=== PATIENT | male | born 1955 | race Caucasian/White ===

== ENCOUNTER 2017-01-01 15:42 | Inpatient (IN) | payer MEDICARE, OTHER ==
--- NOTE | 2017-01-01 16:04 | ED ---
General Adult HPI - General Source: RN notes reviewed, old records reviewed <Christina Johns - Last Filed: 01/01/17 18:49> <Juni Elizabeth - Last Filed: 01/01/17 19:42> - General Stated complaint: infection Time Seen by Provider: 01/01/17 15:52 - History of Present Illness Initial comments: 60-year-old male with chronic [place] medical conditions of multiple sclerosis, suprapubic catheter, bowel incontinence and GERD presents the Department chief complaint of concern for prostate abscess and osteomyelitis. Patient has an severe sacral wound that is currently being treated by Dr. Flowers. Patient is currently living in [facility]. Patient was sent to the emergency department to be admitted for concern of worsening wound and increased drainage. Per transfer form indicates Dr. Bowling wants this patient to be admitted. Thorough review of the papers that the patient had with this transfer showed that he had an MRI which revealed osteomyelitis of the issue and extending the posterior ramus under the acetabulum. Is not amenable to surgical resection. Also there is a significant left shoulder to decubitus ulcer with initial tuberosity osteomyelitis. The MRI was performed on 12/25/2016. (Christina Johns) - Related Data Home Medications Medication Instructions Recorded Confirmed DULoxetine HCL [Cymbalta] 60 mg PO DAILY 08/30/14 01/01/17 Gabapentin [Neurontin] 200 mg PO TID@0500,1300,2100 08/30/14 01/01/17 Nystatin 100,000Unit/gm Cream 1 applic TOPICAL BID 08/30/14 01/01/17 [Mycostatin Cream] DULoxetine HCL [Cymbalta] 30 mg PO DAILY 08/31/14 01/01/17 Polyethylene Glycol 3350 [Miralax] 17 gm PO DAILY 08/31/14 01/01/17 Bisacodyl [Dulcolax] 10 mg RECTAL DAILY PRN 09/26/15 01/01/17 Memantine [Namenda] 10 mg PO BID 09/26/15 01/01/17 Acetaminophen [Tylenol Arthritis] 650 mg PO Q6HR PRN 12/12/15 01/01/17 Folic Acid/Multivit-Min/Lutein 1 tab PO HS 12/12/15 01/01/17 [Therapeutic-M Tablet] Triamcinolone 0.1% Ointment 1 applic TOPICAL TID PRN 12/19/15 01/01/17 [Kenalog 0.1% Ointment] Ranitidine HCl [Zantac] 75 mg PO HS 01/31/16 01/01/17 Amino Acids/Protein Hydrolys 30 ml PO DAILY 01/01/17 01/01/17 [Pro-Stat Supplement] Lisinopril [Zestril] 2.5 mg PO DAILY 01/01/17 01/01/17 Menthol/Zinc Oxide [Calmoseptine 1 applic TOPICAL TID PRN 01/01/17 01/01/17 Ointment] Sennosides/Docusate Sodium 1 tab PO BID 01/01/17 01/01/17 [Precious-Colace Tablet] Previous Rx's Medication Instructions Recorded HYDROcodone/APAP 5-325MG [Stem 1 tab PO Q4HR PRN #30 tab 02/07/16 5-325] Allergies Allergy/AdvReac Type Severity Reaction Status Date / Time adhesive Allergy Unknown Verified 01/01/17 18:03 chocolate flavor Allergy Unknown Verified 01/01/17 18:03 egg Allergy Unknown Verified 01/01/17 16:17 heparin (porcine) Allergy Unknown Verified 01/01/17 18:03 [heparin,porcine] Sulfa (Sulfonamide Allergy Unknown Verified 01/01/17 18:03 Antibiotics) Review of Systems ROS Other: All systems not noted in ROS Statement are negative. <Christina Johns - Last Filed: 01/01/17 18:49> ROS Other: All systems not noted in ROS Statement are negative. <Juni Elizabeth - Last Filed: 01/01/17 19:42> ROS Statement: Those systems with pertinent positive or pertinent negative responses have been documented in the HPI. Past Medical History Past Medical History: Dementia, Diabetes Mellitus, Eye Disorder, GERD/Reflux, Mitral Valve Prolapse (MVP), Musculoskeletal Disorder, Neurologic Disorder, Renal Disease, Vascular Disorder Additional Past Medical History / Comment(s): multiple sclerosis, atony of bladder-neurogenic bladder with suprapubic catheter, UTIs with sepsis, bowel incontinence, decubs in past, cellulitis bilateral lower legs in past, bilateral leg weakness, nephrolithiasis, bladder stones, back pain, DDD, muscle spasms, PVD, macular degeneration bilateral eyes with poor vision, MVP, dementia ,Pt uses Pradeep lift unable to stand & pivot. Wound center pt-goes there on Wednesdays. History of Any Multi-Drug Resistant Organisms: ESBL, MRSA, Other MDRO Date of last positivie culture/infection: 06/19/15-ESBL-E.coli; 12/24/16-MRSA & MDRO Pseudomonas MDRO Source:: Urine-ESBL; Coccyx/Bone MRSA & MDRO Past Surgical History: No Surgical Hx Reported Additional Past Surgical History / Comment(s): supra pubic catheter placement and removal of bladder stones, I&D scrotal abcess, penile implant and removal with necrotic tissue removal, PICC line insertion 10/01/15 and since removed, debridement lt trochanter Past Anesthesia/Blood Transfusion Reactions: No Reported Reaction Additional Past Anesthesia/Blood Transfusion Reaction / Comment(s): Pt states he has never received blood. Past Psychological History: Depression Additional Psychological History / Comment(s): Pt resides at [facility] Smoking Status: Former smoker Past Alcohol Use History: None Reported Additional Past Alcohol Use History / Comment(s): Pt states he started smoking in and quit in 2004 Past Drug Use History: None Reported - Past Family History Mother Family Medical History: No Reported History Additional Family Medical History / Comment(s): Pt believes his mother was healthy. She has . Father Family Medical History: Diabetes Mellitus Additional Family Medical History / Comment(s): Pt states he believes his dad in his 60's. <NatChristina - Last Filed: 01/01/17 18:49> General Exam General appearance: alert, in no apparent distress Head exam: Present: atraumatic, normocephalic, normal inspection Eye exam: Present: normal appearance, PERRL, EOMI. Absent: scleral icterus, conjunctival injection, periorbital swelling ENT exam: Present: normal exam, mucous membranes moist Neck exam: Present: normal inspection. Absent: tenderness, meningismus, lymphadenopathy Respiratory exam: Present: normal lung sounds bilaterally. Absent: respiratory distress, wheezes, rales, rhonchi, stridor Cardiovascular Exam: Present: regular rate, normal rhythm, normal heart sounds. Absent: systolic murmur, diastolic murmur, rubs, gallop, clicks GI/Abdominal exam: Present: soft, normal bowel sounds, other (suprapubic catheter). Absent: distended, tenderness, guarding, rebound, rigid Rectal exam: Present: other (significant decubitis ulcer with packing. Patient has erythema and minor drainage from the site. ). Absent: normal inspection Extremities exam: Present: normal inspection, full ROM, normal capillary refill. Absent: tenderness, pedal edema, joint swelling, calf tenderness Back exam: Present: normal inspection Neurological exam: Present: alert, oriented X3, CN II-XII intact Psychiatric exam: Present: normal affect, normal mood Skin exam: Present: warm, dry, intact, normal color. Absent: rash <Christina Johns - Last Filed: 01/01/17 18:49> <Juni Elizabeth - Last Filed: 01/01/17 19:42> - General Exam Comments Initial Comments: 61-year-old male. No acute distress. (Christina Johns) Medical Decision Making - Lab Data Result diagrams: 01/01/17 16:30 01/01/17 16:30 - Radiology Data Radiology results: report reviewed <Christina Johns - Last Filed: 01/01/17 18:49> - Lab Data Result diagrams: 01/01/17 16:30 01/01/17 16:30 <Juni Elizabeth - Last Filed: 01/01/17 19:42> - Medical Decision Making 60-year-old male with chronic [place] medical conditions of multiple sclerosis, suprapubic catheter, bowel incontinence and GERD presents the Department chief complaint of concern for prostate abscess and osteomyelitis. Patient has an severe sacral wound that is currently being treated by Dr. Flowers. Patient is currently living in [facility]. Patient was sent to the emergency department to be admitted for concern of worsening wound and increased drainage. Per transfer form indicates Dr. Bowling wants this patient to be admitted. Thorough review of the papers that the patient had with this transfer showed that he had an MRI which revealed osteomyelitis of the issue and extending the posterior ramus under the acetabulum. Is not amenable to surgical resection. Also there is a significant left shoulder to decubitus ulcer with initial tuberosity osteomyelitis. The MRI was performed on 12/25/2016. Patient's lab work was reviewed. Urinalysis is positive for UTI. Patient does have an extensive decubitus ulcer. CT abdomen and pelvis, No mention of prostate abscess osteomyelitis. Patient will be started on Levaquin for UTI antibiotic coverage. (Christina Johns) Case discussed Dr. Pires reevaluate the patient for the irregularity to the posterior aspect of the prostate as well as the probably chronic obstructive left ureteral stone. Dr. Elizabeth (Juni Elizabeth) - Lab Data Lab Results 01/01/17 01/01/17 01/01/17 Range/Units 16:30 16:30 16:30 WBC 8.1 (3.8-10.6) k/uL RBC 5.51 (4.30-5.90) m/uL Hgb 14.4 (13.0-17.5) gm/dL Hct 45.5 (39.0-53.0) % MCV 82.6 (80.0-100.0) fL MCH 26.1 (25.0-35.0) pg MCHC 31.6 (31.0-37.0) g/dL RDW 15.2 (11.5-15.5) % Plt Count 491 H (150-450) k/uL Neutrophils % 63 % Lymphocytes % 20 % Monocytes % 8 % Eosinophils % 5 % Basophils % 1 % Neutrophils # 5.1 (1.3-7.7) k/uL Lymphocytes # 1.6 (1.0-4.8) k/uL Monocytes # 0.7 (0-1.0) k/uL Eosinophils # 0.4 (0-0.7) k/uL Basophils # 0.1 (0-0.2) k/uL Hypochromasia Moderate PT (9.0-12.0) sec INR (<1.2) APTT (22.0-30.0) sec Sodium 141 (137-145) mmol/L Potassium 4.5 (3.5-5.1) mmol/L Chloride 107 (98-107) mmol/L Carbon Dioxide 25 (22-30) mmol/L Anion Gap 9 mmol/L BUN 15 (9-20) mg/dL Creatinine 1.02 (0.66-1.25) mg/dL Est GFR (MDRD) Af Amer >60 (>60 ml/min/1.73 sqM) Est GFR (MDRD) Non-Af >60 (>60 ml/min/1.73 sqM) Glucose 92 (74-99) mg/dL Plasma Lactic Acid Rey 1.2 (0.7-2.0) mmol/L Calcium 9.1 (8.4-10.2) mg/dL Total Bilirubin 0.3 (0.2-1.3) mg/dL AST 23 (17-59) U/L ALT 31 (21-72) U/L Alkaline Phosphatase 78 (38-126) U/L Total Protein 8.0 (6.3-8.2) g/dL Albumin 3.5 (3.5-5.0) g/dL Urine Color Urine Appearance (Clear) Urine pH (5.0-8.0) Ur Specific [place] (1.001-1.035) Urine Protein (Negative) Urine Glucose (UA) (Negative) Urine Ketones (Negative) Urine Blood (Negative) Urine Nitrite (Negative) Urine Bilirubin (Negative) Urine Urobilinogen (<2.0) mg/dL Ur Leukocyte Esterase (Negative) Urine WBC (0-5) /hpf Urine Bacteria (None) /hpf Urine Mucus (None) /hpf 01/01/17 01/01/17 Range/Units 16:30 16:30 WBC (3.8-10.6) k/uL RBC (4.30-5.90) m/uL Hgb (13.0-17.5) gm/dL Hct (39.0-53.0) % MCV (80.0-100.0) fL MCH (25.0-35.0) pg MCHC (31.0-37.0) g/dL RDW (11.5-15.5) % Plt Count (150-450) k/uL Neutrophils % % Lymphocytes % % Monocytes % % Eosinophils % % Basophils % % Neutrophils # (1.3-7.7) k/uL Lymphocytes # (1.0-4.8) k/uL Monocytes # (0-1.0) k/uL Eosinophils # (0-0.7) k/uL Basophils # (0-0.2) k/uL Hypochromasia PT 10.3 (9.0-12.0) sec INR 1.0 (<1.2) APTT 28.5 (22.0-30.0) sec Sodium (137-145) mmol/L Potassium (3.5-5.1) mmol/L Chloride (98-107) mmol/L Carbon Dioxide (22-30) mmol/L Anion Gap mmol/L BUN (9-20) mg/dL Creatinine (0.66-1.25) mg/dL Est GFR (MDRD) Af Amer (>60 ml/min/1.73 sqM) Est GFR (MDRD) Non-Af (>60 ml/min/1.73 sqM) Glucose (74-99) mg/dL Plasma Lactic Acid Rey (0.7-2.0) mmol/L Calcium (8.4-10.2) mg/dL Total Bilirubin (0.2-1.3) mg/dL AST (17-59) U/L ALT (21-72) U/L Alkaline Phosphatase (38-126) U/L Total Protein (6.3-8.2) g/dL Albumin (3.5-5.0) g/dL Urine Color Light Yellow Urine Appearance Cloudy (Clear) Urine pH 6.5 (5.0-8.0) Ur Specific [place] 1.011 (1.001-1.035) Urine Protein Negative (Negative) Urine Glucose (UA) Negative (Negative) Urine Ketones Negative (Negative) Urine Blood Negative (Negative) Urine Nitrite Positive (Negative) Urine Bilirubin Negative (Negative) Urine Urobilinogen <2.0 (<2.0) mg/dL Ur Leukocyte Esterase Large H (Negative) Urine WBC 74 H (0-5) /hpf Urine Bacteria Moderate H (None) /hpf Urine Mucus Rare H (None) /hpf - Radiology Data CT abdomen shows patchy scarring or atelectasis in the posterior lung base without change compared to exam. Left renal calcifications severe atrophy of the left kidney that has progressed compared old CAT scan. Large obstructing stone at the left ureteral pelvic junction measuring 2 cm. There is common story hypertrophy of the right kidney. No evidence of right-sided renal obstruction. Small hepatic cyst. No evidence of abscess. (Christina Johns) Disposition Time of Disposition: 18:57 <Christina Johns - Last Filed: 01/01/17 18:49> <Juni Elizabeth - Last Filed: 01/01/17 19:42> Clinical Impression: Decubital ulcer, UTI (urinary tract infection), Multiple sclerosis, Osteomyelitis, pelvis Disposition: ADMITTED IP TO THIS HOSP Condition: Stable Referrals: Mo Bowling DO [Primary Care Provider] - 1-2 days
[2017-01-01] MEDS ORDERED: RX INFO: IV CONTRAST WAS GIVEN 1 EACH MISC MISCELLANE PRN (16:20)
[2017-01-01] MEDS: SODIUM CHLORIDE 0.9% 500 ML IV SCH (16:45)
[2017-01-01 16:59] LABS: Basophils # (A) 0.1 k/uL (0-0.2); Basophils % (A) 1 %; CH 25.4; CHCM 30.8; Eosinophils # (A) 0.4 k/uL (0-0.7); Eosinophils % (A) 5 %; HCT 45.5 % (39.0-53.0); HDW 2.76; HGB 14.4 gm/dL (13.0-17.5); Hypochromasia Moderate; Luc # (Auto) 0.26; Luc % (Auto) 3; Lymphocytes # (A) 1.6 k/uL (1.0-4.8); Lymphocytes % (A) 20 %; MCH 26.1 pg (25.0-35.0); MCHC 31.6 g/dL (31.0-37.0); MCV 82.6 fL (80.0-100.0); Mean Platelet Volume 6.2; Monocytes # (A) 0.7 k/uL (0-1.0); Monocytes % (A) 8 %; Neutrophils # (A) 5.1 k/uL (1.3-7.7); Neutrophils % (A) 63 %; RBC 5.51 m/uL (4.30-5.90); RDW 15.2 % (11.5-15.5); WBC 8.1 k/uL (3.8-10.6); WBC (Perox) 7.52
[2017-01-01] MEDS ORDERED: AZITHROMYCIN 500 MG TAB PO STA (17:03)
[2017-01-01 17:12] LABS: ALT 31 U/L (21-72); AST 23 U/L (17-59); Alkaline Phosphatase 78 U/L (38-126); Anion Gap 9 mmol/L; Blood Urea Nitrogen 15 mg/dL (9-20); Calcium 9.1 mg/dL (8.4-10.2); Carbon Dioxide 25 mmol/L (22-30); Chloride 107 mmol/L (98-107); Glucose 92 mg/dL (74-99); Non-African American GFR(MDRD) >60 (>60 ml/min/1.73 sqM); Partial Thromboplastin Time 28.5 sec (22.0-30.0); Potassium 4.5 mmol/L (3.5-5.1); Prothrombin Time 10.3 sec (9.0-12.0); Sodium 141 mmol/L (137-145); Total Bilirubin 0.3 mg/dL (0.2-1.3)
[2017-01-01 17:17] LABS: Appearance,Urine Cloudy (Clear); Bacteria,Urine Moderate /hpf; Bilirubin,Urine Negative (Negative); Glucose,Urine (UA) Negative (Negative); Ketones,Urine Negative (Negative); Leukocyte Esterase,Urine Large (Negative); Mucus,Urine Rare /hpf; Nitrite,Urine Positive (Negative); PH, Urine 6.5 (5.0-8.0); Particle Count 24194; Protein,Urine Negative (Negative); Specific Gravity,Urine 1.011 (1.001-1.035); UA Billing (MACRO vs. MICRO) MICRO; Urobilinogen,Urine <2.0 mg/dL (<2.0); WBC,Urine 74 /hpf (0-5)
--- NOTE | 2017-01-01 18:09 | CT ---
EXAMINATION TYPE: CT abdomen pelvis w con DATE OF EXAM: 01/01/2017 COMPARISON: 09/26/2015 HISTORY: Infection abdominal pain CT DLP: 2289 mGycm Automated exposure control for dose reduction was used. TECHNIQUE: Helical acquisition of images was performed from the lung bases through the pelvis. CONTRAST: Performed without Oral Contrast and with IV Contrast, patient injected with 100 mL of Omnipaque 300. FINDINGS: There is patchy linear density at the lung bases consistent with scarring and subsegmental atelectasi s. There is no pleural effusion. Liver shows tiny 1 cm cyst in the left lobe. Spleen appears normal. There is no pancreatic mass. There is no adrenal mass. Right kidney shows compensatory hypertrophy. There is a small left kidney w ith calcification and significant cortical thinning. There is a 2 cm calculus at the left ureteropelv ic junction. There is no retroperitoneal adenopathy. There is retained fecal material in the colon. T here is a suprapubic catheter noted. There is a 2.5 x 2 cm stone in the urinary bladder. There is no ascites. There is no sign of a bowel obstruction. I see no bony destructive process. Appendix is not seen. There is no sign of appendicitis. IMPRESSION: There is patchy scarring and atelectasis at the posterior lung bases without change compared to old e xam. Left renal calcifications and severe atrophy in the left kidney that has progressed compared to old C T scan. Large obstructing stone at the left ureteropelvic junction. There is compensatory hypertrophy of the right kidney. No evidence of right-sided renal obstruction. Small hepatic cysts. No evidence of an abscess. Large bladder stone. Constipation.
[2017-01-01] MEDS ORDERED: LEVOFLOXACIN 750MG-D5W PMX 750 MG in DEXTROSE/WATER 1 150ML.BAG IVPB STA (18:53)
[2017-01-01] MEDS ORDERED: ONDANSETRON 4 MG/2 ML VIAL IVP PRN (19:01)
[2017-01-01] MEDS ORDERED: ACETAMINOPHEN TAB 325 MG TAB PO PRN (19:01)
[2017-01-01] MEDS ORDERED: traMADol 50 MG TAB PO PRN (19:01)
[2017-01-01] MEDS ORDERED: NALOXONE 0.4 MG/ML 1 ML VIAL IV PRN (19:01)
[2017-01-01] MEDS ORDERED: IBUPROFEN 400 MG TAB PO PRN (19:01)
[2017-01-01] MEDS ORDERED: MENTHOL-ZINC OXIDE OINT 113 GM TUBE TOPICAL PRN (19:04)
[2017-01-01] MEDS ORDERED: TRIAMCINOLONE ACET 0.1% OINTMENT 15 GM TUBE TOPICAL PRN (19:04)
[2017-01-01] MEDS: SODIUM CHLORIDE 0.9% 1,000 ML IV SCH (19:36)
[2017-01-01 21:12] VITALS: BMI 24.6
[2017-01-01] MEDS: SENNOSIDES-DOCUSATE SODIUM 1 EACH TAB PO SCH (21:40)
[2017-01-01] MEDS: NYSTATIN 100,000UNIT/GM CREAM 30 GM TUBE TOPICAL SCH (21:40)
[2017-01-01] MEDS: GABAPENTIN 100 MG CAP PO SCH (21:41)
[2017-01-01] MEDS: MEMANTINE 10 MG TAB PO SCH (21:41)
[2017-01-02] MEDS: SODIUM CHLORIDE 0.9% 1,000 ML IV SCH ×2 (03:24→09:41)
[2017-01-02] MEDS: GABAPENTIN 100 MG CAP PO SCH ×2 (06:08→14:25)
[2017-01-02 07:17] VITALS: TEMP 97
[2017-01-02] MEDS ORDERED: NON-FORMULARY DRUG (Amino Acids/Protein Hydrolys [Pro-Stat Supplement] 30 ML) PO SCH (09:00)
[2017-01-02] MEDS ORDERED: DULoxetine HCL 60 MG CAPSULE.DR PO SCH (09:00)
[2017-01-02] MEDS ORDERED: LISINOPRIL 2.5 MG TAB PO SCH (09:00)
[2017-01-02] MEDS ORDERED: DULoxetine HCL 30 MG CAPSULE.DR PO SCH (09:00)
[2017-01-02] MEDS ORDERED: POLYETHYLENE GLYCOL 3350 17 GM POWD.PACK PO SCH (09:00)
[2017-01-02] MEDS ORDERED: ESOMEPRAZOLE 20 MG in SODIUM CHLORIDE 0.9% 50 ML IVPB SCH (09:00)
[2017-01-02] MEDS: MEMANTINE 10 MG TAB PO SCH (09:41)
[2017-01-02] MEDS: SENNOSIDES-DOCUSATE SODIUM 1 EACH TAB PO SCH (09:42)
[2017-01-02] MEDS: NYSTATIN 100,000UNIT/GM CREAM 30 GM TUBE TOPICAL SCH (09:43)
--- NOTE | 2017-01-02 10:27 | P.GSCN ---
History of Present Illness Consult date: 01/02/17 Reason for Consult: possible prostate abscess, bladder calculus and renal calculus History of present illness: the patient is a 60-year-old male with a history of multiple sclerosis was admitted for evaluation of osteomyelitis of the left ischium and posterior left pubic ramus and a possible prostatic abscess. These findings were noted on an MR of the pelvis on 12/25/2016. The patient has a complicated history related to multiple sclerosis and a neurogenic bladder. He has a chronic suprapubic catheter which is changed monthly and was last changed on 12/28. 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 He had a computed tomography scan of the abdomen and pelvis in 09/2015 that showed a 2 cm left renal calculus with moderately severe left hydronephrosis and atrophy of the left kidney. A 2.5 cm bladder calculus was also noted at that time. He was evaluated by Dr. Christensen at that time and he discussed elective removal of the bladder calculus and probable left nephrectomy but this was never actually set up. Computed tomography scan of the abdomen and pelvis on 01/01 continued to show the bladder and left renal calculus and they are unchanged in appearance. There also appeared to be a punctate nonobstructive right renal calculus. There appeared to be compensatory hypertrophy of the right kidney. There was no abnormality noted in the region of the prostate on this study.The patient has had a chronic ulcer over the left ischium and has been followed in the wound center by Dr. Flowers. Review of Systems - Constitutional Denies chills, Denies fever - Gastrointestinal Denies abdominal pain - Genitourinary Denies flank pain, Denies hematuria Past Medical History Past Medical History: Dementia, Diabetes Mellitus, Eye Disorder, GERD/Reflux, Mitral Valve Prolapse (MVP), Musculoskeletal Disorder, Neurologic Disorder, Renal Disease, Vascular Disorder Additional Past Medical History / Comment(s): multiple sclerosis, atony of bladder-neurogenic bladder with suprapubic catheter, UTIs with sepsis, bowel incontinence, decubs in past, cellulitis bilateral lower legs in past, bilateral leg weakness, nephrolithiasis, bladder stones, back pain, DDD, muscle spasms, PVD, macular degeneration bilateral eyes with poor vision, MVP, dementia ,Pt uses Pradeep lift unable to stand & pivot. Wound center pt-goes there on Wednesdays. History of Any Multi-Drug Resistant Organisms: ESBL, MRSA, Other MDRO Year Discovered:: 06/19/15-ESBL-E.coli; 12/24/16-MRSA & MDRO Pseudomonas MDRO Source:: Urine-ESBL; Coccyx/Bone MRSA & MDRO Past Surgical History: No Surgical Hx Reported Additional Past Surgical History / Comment(s): supra pubic catheter placement and removal of bladder stones, I&D scrotal abcess, penile implant and removal with necrotic tissue removal, PICC line insertion 10/01/15 and since removed, debridement lt trochanter, placementy and subsequent removal of semimaleable penile prosthesis Past Anesthesia/Blood Transfusion Reactions: No Reported Reaction Additional Past Anesthesia/Blood Transfusion Reaction / Comm: Pt states he has never received blood. Past Psychological History: Depression Additional Psychological History / Comment(s): Pt resides at [facility] Smoking Status: Former smoker Past Alcohol Use History: None Reported Additional Past Alcohol Use History / Comment(s): Pt states he started smoking in and quit in 2004 Past Drug Use History: None Reported - Past Family History Mother Family Medical History: No Reported History Additional Family Medical History / Comment(s): Pt believes his mother was healthy. She has . Father Family Medical History: Diabetes Mellitus Additional Family Medical History / Comment(s): Pt states he believes his dad in his 60's. Medications and Allergies Home Medications Medication Instructions Recorded Confirmed Type DULoxetine HCL [Cymbalta] 60 mg PO DAILY 08/30/14 01/01/17 History Gabapentin [Neurontin] 200 mg PO TID@0500,1300,2100 08/30/14 01/01/17 History Nystatin 100,000Unit/gm Cream 1 applic TOPICAL BID 08/30/14 01/01/17 History [Mycostatin Cream] DULoxetine HCL [Cymbalta] 30 mg PO DAILY 08/31/14 01/01/17 History Polyethylene Glycol 3350 [Miralax] 17 gm PO DAILY 08/31/14 01/01/17 History Bisacodyl [Dulcolax] 10 mg RECTAL DAILY PRN 09/26/15 01/01/17 History Memantine [Namenda] 10 mg PO BID 09/26/15 01/01/17 History Acetaminophen [Tylenol Arthritis] 650 mg PO Q6HR PRN 12/12/15 01/01/17 History Folic Acid/Multivit-Min/Lutein 1 tab PO HS 12/12/15 01/01/17 History [Therapeutic-M Tablet] Triamcinolone 0.1% Ointment 1 applic TOPICAL TID PRN 12/19/15 01/01/17 History [Kenalog 0.1% Ointment] Ranitidine HCl [Zantac] 75 mg PO HS 01/31/16 01/01/17 History Amino Acids/Protein Hydrolys 30 ml PO DAILY 01/01/17 01/01/17 History [Pro-Stat Supplement] Lisinopril [Zestril] 2.5 mg PO DAILY 01/01/17 01/01/17 History Menthol/Zinc Oxide [Calmoseptine 1 applic TOPICAL TID PRN 01/01/17 01/01/17 History Ointment] Sennosides/Docusate Sodium 1 tab PO BID 01/01/17 01/01/17 History [Precious-Colace Tablet] Allergies Allergy/AdvReac Type Severity Reaction Status Date / Time adhesive Allergy Unknown Verified 01/01/17 18:03 chocolate flavor Allergy Unknown Verified 01/01/17 18:03 egg Allergy Unknown Verified 01/01/17 16:17 heparin (porcine) Allergy Unknown Verified 01/01/17 18:03 [heparin,porcine] Sulfa (Sulfonamide Allergy Unknown Verified 01/01/17 18:03 Antibiotics) Milk Containing Products AdvReac Nausea & Verified 01/02/17 07:57 [Dairy] Vomiting & Diarrhea Surgical - Exam Vital Signs Temp Pulse Resp BP Pulse Ox 98.2 F 67 18 120/69 96 01/01/17 16:19 01/01/17 16:19 01/01/17 16:19 01/01/17 16:19 01/01/17 16:19 - General well developed, no distress, no pain - Abdomen Abdomen: soft (obese, suprapubic catheter is in place. A small amount of purulent material is present around the catheter at the suprapubic entrance site.) - Genitourinary normal penis with no external lesions, testicles present, testicles non-tender - Rectum Rectum: no tenderness, other (prostate is 2+ enlarged, smooth, nontender and nonfluctuant.) - Musculoskeletal other (there is an open ulcer over the left issue him which is packed with gauze. There is only minimal purulent material draining from this.) - Psychiatric oriented to time, oriented to place, speech is normal Results - Labs 01/01/17 16:30 01/01/17 16:30 Abnormal Lab Results - Last 24 Hours (Table) 01/01/17 01/01/17 Range/Units 16:30 16:30 Plt Count 491 H (150-450) k/uL Ur Leukocyte Esterase Large H (Negative) Urine WBC 74 H (0-5) /hpf Urine Bacteria Moderate H (None) /hpf Urine Mucus Rare H (None) /hpf Microbiology - Last 24 Hours (Table) 01/01/17 16:30 Urine Culture - Preliminary Urine,Voided Diabetes panel 01/01/17 Range/Units 16:30 Sodium 141 (137-145) mmol/L Potassium 4.5 (3.5-5.1) mmol/L Chloride 107 (98-107) mmol/L Carbon Dioxide 25 (22-30) mmol/L BUN 15 (9-20) mg/dL Creatinine 1.02 (0.66-1.25) mg/dL Glucose 92 (74-99) mg/dL Calcium 9.1 (8.4-10.2) mg/dL AST 23 (17-59) U/L ALT 31 (21-72) U/L Alkaline Phosphatase 78 (38-126) U/L Total Protein 8.0 (6.3-8.2) g/dL Albumin 3.5 (3.5-5.0) g/dL Calcium panel 01/01/17 Range/Units 16:30 Calcium 9.1 (8.4-10.2) mg/dL Albumin 3.5 (3.5-5.0) g/dL Pituitary panel 01/01/17 Range/Units 16:30 Sodium 141 (137-145) mmol/L Potassium 4.5 (3.5-5.1) mmol/L Chloride 107 (98-107) mmol/L Carbon Dioxide 25 (22-30) mmol/L BUN 15 (9-20) mg/dL Creatinine 1.02 (0.66-1.25) mg/dL Glucose 92 (74-99) mg/dL Calcium 9.1 (8.4-10.2) mg/dL Adrenal panel 01/01/17 Range/Units 16:30 Sodium 141 (137-145) mmol/L Potassium 4.5 (3.5-5.1) mmol/L Chloride 107 (98-107) mmol/L Carbon Dioxide 25 (22-30) mmol/L BUN 15 (9-20) mg/dL Creatinine 1.02 (0.66-1.25) mg/dL Glucose 92 (74-99) mg/dL Calcium 9.1 (8.4-10.2) mg/dL Total Bilirubin 0.3 (0.2-1.3) mg/dL AST 23 (17-59) U/L ALT 31 (21-72) U/L Alkaline Phosphatase 78 (38-126) U/L Total Protein 8.0 (6.3-8.2) g/dL Albumin 3.5 (3.5-5.0) g/dL Assessment and Plan (1) Bladder calculus Narrative/Plan: The patient has a 2 x 2.5 cm bladder calculus which has been present for over 1 year. This may be one of the sources for his chronic urinary tract infection. Elective removal of the calculus via cystoscopy lithotripsy could be set up in the future. Status: Acute (2) Nephrolithiasis Narrative/Plan: lLeft renal calculus- This has resulted in atrophy of the kidney. In view of the severe renal atrophy I believe that left simple nephrectomy would be the best treatment option but this could be set up electively. Status: Acute (3) UTI (urinary tract infection) Narrative/Plan: Chronic urinary tract infection-most likely related to a combination of left renal calculus and bladder calculus.The patient is currently not symptomatic from his chronic urinary tract infection and because of this antibiotics should be not be used just for this purpose. The patient has no evidence of prostatic abscess on his most recent computed tomography scan or on physical examination. Status: Acute Plan: The patient has a large left renal calculus with atrophy of the left kidney and hydronephrosis which appears to be chronic. This calculus may be another source for the patient's chronic Proteus urinary tract infection. Simple nephrectomy would be a better option than attempting to remove the left renal calculus as it is likely that the left kidney has only minimal function. This surgery is elective.
[2017-01-02] MEDS ORDERED: IV VANCOMYCIN PER PHARMACY 1 EACH MISC MISCELLANE PRN (14:32)
[2017-01-02 14:58] VITALS: BP 94/59; PULSE 85; RESP 16
[2017-01-02] MEDS ORDERED: VANCOMYCIN 1,500 MG in SODIUM CHLORIDE 0.9% 250 ML IVPB ONE (15:00)
[2017-01-02] MEDS ORDERED: PIPERACILLIN-TAZOBACTAM 3.375 GM in DEXTROSE/WATER 1 50ML.BAG IVPB SCH (16:00)
--- NOTE | 2017-01-02 16:15 | P.HPIM ---
History of Present Illness the patient is a 60-year-old male with a history of multiple sclerosis was admitted for possibility of osteomyelitis of the left ischium and posterior left pubic ramus and a possible prostatic abscess. These findings were noted on an MR of the pelvis on 12/25/2016 MR patient was a valid by Dr. Sanchez infectious disease and clinically patient does not appear to have any osteomyelitis. There may be chronic osteomyelitis without any acute infection. Patient does not have any fever no leukocytosis. An infectious diseases not recommending any IV antibiotics on any oral antibiotics at this time. He is recommending CT of the area with contrast and further workup as an outpatient depending on the CT outpatient.. Patient. The patient has a complicated history related to multiple sclerosis and a neurogenic bladder. He has a chronic suprapubic catheter which is changed monthly and was last changed on . He does have nephrolithiasis which appears to be chronic and the possibility of the prostate abscess that was described on the MRI because of which urology valid the patient and they're recommending further evaluation as an outpatient for left nephrectomy. Patient does not appear to have any acute urinary tract infection either. Patient will be discharged today in stable medical condition Review of Systems REVIEW OF SYSTEMS: CONSTITUTIONAL: No fever, no malaise, no fatigue. HEENT: No recent visual problems or hearing problems. Denied any sore throat. CARDIOVASCULAR: No chest pain, orthopnea, PND, no palpitations, no syncope. PULMONARY: No shortness of breath, no cough, no hemoptysis. GASTROINTESTINAL: No diarrhea, no nausea, no vomiting, no abdominal pain. Normoactive bowel sounds. NEUROLOGICAL: No headaches, no weakness, no numbness. HEMATOLOGICAL: Denies any bleeding or petechiae. GENITOURINARY: Denies any burning micturition, frequency, or urgency. MUSCULOSKELETAL/RHEUMATOLOGICAL: Denies any joint pain, swelling, or any muscle pain. ENDOCRINE: Denies any polyuria or polydipsia. The rest of the 14-point review of systems is negative. Past Medical History Past Medical History: Dementia, Diabetes Mellitus, Eye Disorder, GERD/Reflux, Mitral Valve Prolapse (MVP), Musculoskeletal Disorder, Neurologic Disorder, Renal Disease, Vascular Disorder Additional Past Medical History / Comment(s): multiple sclerosis, atony of bladder-neurogenic bladder with suprapubic catheter, UTIs with sepsis, bowel incontinence, decubs in past, cellulitis bilateral lower legs in past, bilateral leg weakness, nephrolithiasis, bladder stones, back pain, DDD, muscle spasms, PVD, macular degeneration bilateral eyes with poor vision, MVP, dementia ,Pt uses Pradeep lift unable to stand & pivot. Wound center pt-goes there on Wednesdays. History of Any Multi-Drug Resistant Organisms: ESBL, MRSA, Other MDRO Date of last positivie culture/infection: 06/19/15-ESBL-E.coli; 12/24/16-MRSA & MDRO Pseudomonas MDRO Source:: Urine-ESBL; Coccyx/Bone MRSA & MDRO Past Surgical History: No Surgical Hx Reported Additional Past Surgical History / Comment(s): supra pubic catheter placement and removal of bladder stones, I&D scrotal abcess, penile implant and removal with necrotic tissue removal, PICC line insertion 10/01/15 and since removed, debridement lt trochanter, placementy and subsequent removal of semimaleable penile prosthesis Past Anesthesia/Blood Transfusion Reactions: No Reported Reaction Additional Past Anesthesia/Blood Transfusion Reaction / Comment(s): Pt states he has never received blood. Past Psychological History: Depression Additional Psychological History / Comment(s): Pt resides at [facility] Smoking Status: Former smoker Past Alcohol Use History: None Reported Additional Past Alcohol Use History / Comment(s): Pt states he started smoking in and quit in 2004 Past Drug Use History: None Reported - Past Family History Mother Family Medical History: No Reported History Additional Family Medical History / Comment(s): Pt believes his mother was healthy. She has . Father Family Medical History: Diabetes Mellitus Additional Family Medical History / Comment(s): Pt states he believes his dad in his 60's. Medications and Allergies Home Medications Medication Instructions Recorded Confirmed Type DULoxetine HCL [Cymbalta] 60 mg PO DAILY 08/30/14 01/01/17 History Gabapentin [Neurontin] 200 mg PO TID@0500,1300,2100 08/30/14 01/01/17 History Nystatin 100,000Unit/gm Cream 1 applic TOPICAL BID 08/30/14 01/01/17 History [Mycostatin Cream] DULoxetine HCL [Cymbalta] 30 mg PO DAILY 08/31/14 01/01/17 History Polyethylene Glycol 3350 [Miralax] 17 gm PO DAILY 08/31/14 01/01/17 History Bisacodyl [Dulcolax] 10 mg RECTAL DAILY PRN 09/26/15 01/01/17 History Memantine [Namenda] 10 mg PO BID 09/26/15 01/01/17 History Acetaminophen [Tylenol Arthritis] 650 mg PO Q6HR PRN 12/12/15 01/01/17 History Folic Acid/Multivit-Min/Lutein 1 tab PO HS 12/12/15 01/01/17 History [Therapeutic-M Tablet] Triamcinolone 0.1% Ointment 1 applic TOPICAL TID PRN 12/19/15 01/01/17 History [Kenalog 0.1% Ointment] Ranitidine HCl [Zantac] 75 mg PO HS 01/31/16 01/01/17 History Amino Acids/Protein Hydrolys 30 ml PO DAILY 01/01/17 01/01/17 History [Pro-Stat Supplement] Lisinopril [Zestril] 2.5 mg PO DAILY 01/01/17 01/01/17 History Menthol/Zinc Oxide [Calmoseptine 1 applic TOPICAL TID PRN 01/01/17 01/01/17 History Ointment] Sennosides/Docusate Sodium 1 tab PO BID 01/01/17 01/01/17 History [Precious-Colace Tablet] Allergies Allergy/AdvReac Type Severity Reaction Status Date / Time adhesive Allergy Unknown Verified 01/01/17 18:03 chocolate flavor Allergy Unknown Verified 01/01/17 18:03 egg Allergy Unknown Verified 01/01/17 16:17 heparin (porcine) Allergy Unknown Verified 01/01/17 18:03 [heparin,porcine] Sulfa (Sulfonamide Allergy Unknown Verified 01/01/17 18:03 Antibiotics) Milk Containing Products AdvReac Nausea & Verified 01/02/17 07:57 [Dairy] Vomiting & Diarrhea Physical Exam Vitals: Vital Signs Temp Pulse Pulse Resp BP BP Pulse Ox 01/02/17 14:58 97.0 F L 85 16 94/59 98 01/02/17 07:00 97.0 F L 66 18 105/56 93 L 01/01/17 22:51 97.2 F L 64 14 131/62 99 01/01/17 19:39 98.3 F 68 18 137/60 98 01/01/17 18:01 98.6 F 61 18 110/62 99 01/01/17 16:45 62 18 122/63 99 01/01/17 16:19 98.2 F 67 18 120/69 96 Intake and Output 01/02/17 01/02/17 01/02/17 06:59 14:59 22:59 Output Total 1050 1700 Balance -1050 -1700 Output: Urine 1050 1700 Other: Voiding Method Indwelling Catheter Indwelling Catheter Weight 89.358 kg Patient Weight 01/03/17 06:59 Weight 89.358 kg PHYSICAL EXAMINATION: GENERAL: The patient is alert and oriented x3, not in any acute distress. Well developed, well nourished. HEENT: Pupils are round and equally reacting to light. EOMI. No scleral icterus. No conjunctival pallor. Normocephalic, atraumatic. No pharyngeal erythema. No thyromegaly. CARDIOVASCULAR: S1 and S2 present. No murmurs, rubs, or gallops. PULMONARY: Chest is clear to auscultation, no wheezing or crackles. ABDOMEN: Soft, nontender, nondistended, normoactive bowel sounds. No palpable organomegaly. MUSCULOSKELETAL: No joint swelling or deformity. EXTREMITIES: No cyanosis, clubbing, or pedal edema. NEUROLOGICAL: Gross neurological examination did not reveal any focal deficits. SKIN: Has a stage IV decubitus ulcer which doesn't appear to be infected. Results CBC & Chem 7: 01/01/17 16:30 01/01/17 16:30 Labs: Abnormal Lab Results - Last 24 Hours (Table) 01/01/17 01/01/17 Range/Units 16:30 16:30 Plt Count 491 H (150-450) k/uL Ur Leukocyte Esterase Large H (Negative) Urine WBC 74 H (0-5) /hpf Urine Bacteria Moderate H (None) /hpf Urine Mucus Rare H (None) /hpf Microbiology - Last 24 Hours (Table) 01/01/17 16:30 Urine Culture - Preliminary Urine,Voided Thrombosis Risk Factor Assmnt - Choose All That Apply Any of the Below Risk Factors Present?: No Other Risk Factors: Yes Each Risk Factor Represents 2 Points: Age 61-74 years Other congenital or acquired thrombophilia - If yes, enter type in comment: No Thrombosis Risk Factor Assessment Total Risk Factor Score: 2 Thrombosis Risk Factor Assessment Level: Low Risk Assessment and Plan Plan: #1 osteomyelitis without any acute infection appeared to have chronic osteomyelitis as per the MRI, no need for antibiotics at this point of time repeat CAT scan with contrast as an outpatient , further evaluation depending on the CAT scan results #2 nephrolithiasis chronic please refer to urology documentation for further details. #3 multiple sclerosis with chronic weakness in bilateral lower limbs. Mostly bedbound. #4 type 2 diabetes mellitus #5 gastroesophageal reflux disease Patient will be discharged back to the subacute rehabilitation will not require any antibiotics patient was evaluated by infectious disease and urology no further changes in medications are being made today.
--- NOTE | 2017-01-02 16:16 | P.DS ---
Providers Date of admission: 01/01/17 18:57 Attending physician: Gurinder Schultz Consults: 01/01/17 19:32 Consult Physician Stat Consulting Provider: Kodak Blount Consult Reason/Comments: Left Obstructing Uteral stone Do you want consulting provider notified?: Yes, Notify in am 01/02/17 15:05 Consult Physician Stat Consulting Provider: Kasie Peres Consult Reason/Comments: pressure ulcer Do you want consulting provider notified?: Yes Primary care physician: [facility] Course: Please refer to HPI Patient Condition at Discharge: Stable Plan - Discharge Summary New Discharge Prescriptions: No Action DULoxetine HCL [Cymbalta] 60 mg PO DAILY Nystatin 100,000Unit/gm Cream [Mycostatin Cream] 1 applic TOPICAL BID Gabapentin [Neurontin] 200 mg PO TID@0500,1300,2100 Polyethylene Glycol 3350 [Miralax] 17 gm PO DAILY DULoxetine HCL [Cymbalta] 30 mg PO DAILY Bisacodyl [Dulcolax] 10 mg RECTAL DAILY PRN PRN Reason: Constipation Memantine [Namenda] 10 mg PO BID Folic Acid/Multivit-Min/Lutein [Therapeutic-M Tablet] 1 tab PO HS Acetaminophen [Tylenol Arthritis] 650 mg PO Q6HR PRN PRN Reason: Pain Triamcinolone 0.1% Ointment [Kenalog 0.1% Ointment] 1 applic TOPICAL TID PRN PRN Reason: Dry Skin Ranitidine HCl [Zantac] 75 mg PO HS HYDROcodone/APAP 5-325MG [[place] 5-325] 1 tab PO Q4HR PRN #30 tab PRN Reason: Pain Amino Acids/Protein Hydrolys [Pro-Stat Supplement] 30 ml PO DAILY Lisinopril [Zestril] 2.5 mg PO DAILY Menthol/Zinc Oxide [Calmoseptine Ointment] 1 applic TOPICAL TID PRN PRN Reason: Redness Sennosides/Docusate Sodium [Precious-Colace Tablet] 1 tab PO BID Discharge Medication List DULoxetine HCL [Cymbalta] 60 mg PO DAILY 08/30/14 [History] Gabapentin [Neurontin] 200 mg PO TID@0500,1300,2100 08/30/14 [History] Nystatin 100,000Unit/gm Cream [Mycostatin Cream] 1 applic TOPICAL BID 08/30/14 [ History] DULoxetine HCL [Cymbalta] 30 mg PO DAILY 08/31/14 [History] Polyethylene Glycol 3350 [Miralax] 17 gm PO DAILY 08/31/14 [History] Bisacodyl [Dulcolax] 10 mg RECTAL DAILY PRN 09/26/15 [History] Memantine [Namenda] 10 mg PO BID 09/26/15 [History] Acetaminophen [Tylenol Arthritis] 650 mg PO Q6HR PRN 12/12/15 [History] Folic Acid/Multivit-Min/Lutein [Therapeutic-M Tablet] 1 tab PO HS 12/12/15 [ History] Triamcinolone 0.1% Ointment [Kenalog 0.1% Ointment] 1 applic TOPICAL TID PRN 12/27 [History] Ranitidine HCl [Zantac] 75 mg PO HS 01/31/16 [History] HYDROcodone/APAP 5-325MG [[place] 5-325] 1 tab PO Q4HR PRN #30 tab 02/07/16 [Rx] Amino Acids/Protein Hydrolys [Pro-Stat Supplement] 30 ml PO DAILY 01/01/17 [ History] Lisinopril [Zestril] 2.5 mg PO DAILY 01/01/17 [History] Menthol/Zinc Oxide [Calmoseptine Ointment] 1 applic TOPICAL TID PRN 01/01/17 [ History] Sennosides/Docusate Sodium [Precious-Colace Tablet] 1 tab PO BID 01/01/17 [History] Follow up Appointment(s)/Referral(s): Mo Bowling DO [Primary Care Provider] - 3 Days Discharge Disposition: TRANSFER TO SNF/F
[2017-01-02] MEDS ORDERED: LEVOFLOXACIN 750MG-D5W PMX 750 MG in DEXTROSE/WATER 1 150ML.BAG IVPB SCH (19:30)
[2017-01-03] MEDS ORDERED: VANCOMYCIN 1,500 MG in SODIUM CHLORIDE 0.9% 250 ML IVPB SCH (06:00)
--- NOTE | 2017-01-03 08:29 | CONS ---
DATE OF CONSULTATION: 01/02/2017 REASON FOR CONSULTATION: Abnormal MRI done as an outpatient raising possibility of the right ischial osteomyelitis. HISTORY OF PRESENT ILLNESS: The patient is a 51 year old male with a past medical history significant for multiple sclerosis, suprapubic catheter, ( ) disease. The patient did have chronic wound to the right ischial area for which the patient has been evaluated by Dr. Flowers at the [facility], last evaluated by him on 12/24/2016 where the patient did have debridement of the wound done. ( ) did mention that the wound was clean and no evidence of any infection. For unclear reasons, the patient did have undergo an MRI of his pelvic area which has been read with the possibility of an ischial osteomyelitis extending into the posterior ( ). ( ) raises the possibility of a ( ) abscess. With these abnormalities, the patient has been sent to [facility] for further evaluation of the same. The patient currently denies having any pain to the ischial area where the wound is currently being treated with wet to dry packing. Not sure about the treatment prior to that. The patient denies having any fever or chills. No significant chest pain or shortness of breath or cough. No abdominal pain or diarrhea. The patient with no fever or elevated white count on presentation. REVIEW OF SYSTEMS Constitutional: Positive for weakness but no high grade fever. EYES: No complaint. ENT: No complaint. Respiratory: No complaint. Cardiovascular: No complaint. Genitourinary: No complaint. Gastrointestinal: No complaint. Musculoskeletal: As per HPI. Integumentary: As per HPI. Psychological: No complaint. Endocrine: No complaint. Neurological: No complaint. Past medical history significant for diabetes mellitus, gastroesophageal reflux disease, mitral valve prolapse and multiple sclerosis, ( ), neurogenic bladder, chronic UTI's, nonhealing wound to the right ischial area. Past surgical history: suprapubic catheter placement, ( ) I&D of the scrotal abscess, ( ) removal, PICC line placement and hence frequent removal. SOCIAL HISTORY: Remote history of smoking. No drinking or drug use. FAMILY HISTORY: Father with history of diabetes mellitus. in his 50s. ALLERGIES: ADHESIVES. Medications currently include the patient is on: 1. Tylenol. 2. Cymbalta. 3. Neurontin. 4. Motrin. 5. Zestril. 6. Namenda. 7. Narcan. 8. ( ) cream. 9. Zofran. 10. Piptazobactam. 11. Miralax. 12. Ultram. 13. Kenalog. 14. Vancomycin. On examination, blood pressure is 94/59 with a pulse of 85. Temperature 97. He is 98% on room air. General description is a middle age male lying in bed in no distress. No tachypnea or accessory muscles of respiration use. HEENT: Examination shows no pallor or scleral icterus. Oral mucous membranes dry. NECK: Trachea is central. No thyromegaly. LUNGS: Unlabored breathing. Clear to auscultation anteriorly. No wheeze or crackles. HEART: S1, S2 regular rate and rhythm. ABDOMEN: Soft, no tenderness. No guarding or rigidity. EXTREMITIES: Right ischial wound which shows good granulation tissue at the base. No evidence of any slough tissue. No surrounding swelling or any redness or any tenderness. No fluctuation or induration or any foul smelling drainage. NEUROLOGICALLY: The patient is awake, alert and oriented times three. Mood and affect normal. LABS: Hemoglobin 14.4, white count 8.1 with a BUN 15, creatinine 1.02. Electrolytes have been normal. Liver enzymes are normal. Urine slightly positive ( ) Valdes. Blood cultures have been obtained which is so far pending. DIAGNOSTIC IMPRESSION AND PLAN: Patient admitted to the hospital with abnormal MRI that has been done as an outpatient. However, is not correlating with the clinical picture in a patient with no fever and elevated white count. The patient's right ischial wound was clean with good granulation tissue at the base. No surrounding swelling or redness or any foul smelling drainage. clinical suspicion remains to be low for underlying osteomyelitis on the basis of negative clinical findings. PLAN: 1. The patient may benefit from the CT of this area to see if it collaborates with the MRI findings, if it does so, recommend deep debridement of this wound followed by deep wound cultures to determine the infectant pathogen before committing ourselves to termite control service representative antibiotic therapy. 2. We will obtain a sed rate. 3. Recommending holding antibiotics ( ) at this point, to ( ) cultures down the road. Thank you for this consultation. We will follow this patient along with you. YVETTE
== END 2017-01-02 18:08 | DRG 539 ==
LOC: EC 15:42 → 4MS4W 18:57
PROVIDERS: ADMIT Internal Medicine; ATTEND Internal Medicine
DX: M86.652 Other chronic osteomyelitis, left thigh (principal); L89.314 Pressure ulcer of right buttock, stage 4; N13.2 Hydronephrosis with renal and ureteral calculous obstruction; L89.129 Pressure ulcer of left upper back, unspecified stage; E11.51 Type 2 diabetes mellitus with diabetic peripheral angiopathy without gangrene; G35 Multiple sclerosis; N31.2 Flaccid neuropathic bladder, not elsewhere classified; F03.90 Unspecified dementia, unspecified severity, without behavioral disturbance, psychotic disturbance, mood disturbance, and anxiety; I34.1 Nonrheumatic mitral (valve) prolapse; K21.9 Gastro-esophageal reflux disease without esophagitis; F32.9 Major depressive disorder, single episode, unspecified; H35.30 Unspecified macular degeneration; F17.200 Nicotine dependence, unspecified, uncomplicated; H54.7 Unspecified visual loss; R15.9 Full incontinence of feces; B96.20 Unspecified Escherichia coli [E. coli] as the cause of diseases classified elsewhere; Z79.899 Other long term (current) drug therapy; Z74.01 Bed confinement status; B96.4 Proteus (mirabilis) (morganii) as the cause of diseases classified elsewhere; Z87.442 Personal history of urinary calculi; Z86.14 Personal history of Methicillin resistant Staphylococcus aureus infection; Z87.891 Personal history of nicotine dependence; Z91.012 Allergy to eggs; Z88.2 Allergy status to sulfonamides; Z88.8 Allergy status to other drugs, medicaments and biological substances; Z91.048 Other nonmedicinal substance allergy status; Z91.018 Allergy to other foods
CPT/HCPCS: 36415; 74177; 80053; 81001; 83605; 85025; 85610; 85730; 87040; 87077; 87086; 87186; 96361; 96365; 99285

== ENCOUNTER 2017-02-02 12:35 | Day surgery (SDC) | payer MEDICARE, OTHER ==
[2017-02-01 09:12] VITALS: BMI 25.4
[~2017-02-02 12:35] MED LIST: DEXAMETHASONE SOD PHOSPHATE 10 MG/ML 1 ML VIAL IV ONE; HYDROmorphone 1 MG/ML 1 ML SYRINGE IVP PRN; LACTATED RINGERS 1,000 ML IV SCH; LIDOCAINE 1% 20 ML VIAL (10MG/ML) FOR IV START INTRADERMA PRN; MIDAZOLAM 2 MG/2 ML VIAL IV PRN; ONDANSETRON 4 MG/2 ML VIAL IVP ONE; Pre Op ABX Message 1 EACH MISC MISCELLANE ONE; SCOPOLAMINE 1.5MG/72HR PATCH TRANSDERM ONE
--- NOTE | 2017-02-02 12:35 | P.GSHP ---
History of Present Illness H&P Date: 02/02/17 Chief Complaint: Stage 4 ischial decubitus ulcer The patient has multiple sclerosis and presents with this he was also it is not healing to suspect of osteomyleitis for which he will need a bone biopsy. He is otherwise of confused because of the extent of his multiple sclerosis. He does not give a good history. - Review of Systems ROS unobtainable: Reports: due to mental status Past Medical History Past Medical History: Dementia, Diabetes Mellitus, Eye Disorder, GERD/Reflux, Mitral Valve Prolapse (MVP), Musculoskeletal Disorder, Neurologic Disorder, Renal Disease, Vascular Disorder Additional Past Medical History / Comment(s): Multiple sclerosis, atony of bladder-neurogenic bladder with suprapubic catheter, UTIs with sepsis, bowel incontinence, decubs in past, cellulitis bilateral lower legs in past, bilateral leg weakness - unable to stand, nephrolithiasis, bladder stones, back pain, DDD, muscle spasms, PVD, macular degeneration bilateral eyes with poor vision. Wound center pt-goes there on Wednesdays. History of Any Multi-Drug Resistant Organisms: ESBL, MRSA, Other MDRO Date of last positivie culture/infection: 01/01/17-ESBL-E.coli; 12/24/16-MRSA & MDRO Pseudomonas MDRO Source:: coccyx Past Surgical History: No Surgical Hx Reported Additional Past Surgical History / Comment(s): Supra pubic catheter placement and removal of bladder stones, I&D scrotal abcess, penile implant and removal with necrotic tissue removal, PICC line insertion and since removed, debridement lt trochanter, placement and subsequent removal of semimaleable penile prosthesis. Past Anesthesia/Blood Transfusion Reactions: No Reported Reaction Additional Past Anesthesia/Blood Transfusion Reaction / Comment(s): Pt states he has never received blood. Past Psychological History: Depression Smoking Status: Former smoker Past Alcohol Use History: None Reported Additional Past Alcohol Use History / Comment(s): Pt states he started smoking in and quit in 2004 Past Drug Use History: None Reported - Past Family History Mother Family Medical History: No Reported History Additional Family Medical History / Comment(s): Pt believes his mother was healthy. She has . Father Family Medical History: Diabetes Mellitus Additional Family Medical History / Comment(s): Pt states he believes his dad in his 60's. Medications and Allergies Home Medications Medication Instructions Recorded Confirmed Type DULoxetine HCL [Cymbalta] 90 mg PO QAM 08/30/14 02/01/17 History Gabapentin [Neurontin] 200 mg PO TID@0500,1300,2100 08/30/14 02/01/17 History Nystatin 100,000Unit/gm Cream 1 applic TOPICAL BID 08/30/14 02/01/17 History [Mycostatin Cream] Polyethylene Glycol 3350 [Miralax] 17 gm PO DAILY 08/31/14 02/01/17 History Bisacodyl [Dulcolax] 10 mg RECTAL DAILY PRN 09/26/15 02/01/17 History Memantine [Namenda] 10 mg PO BID 09/26/15 02/01/17 History Acetaminophen [Tylenol Arthritis] 650 mg PO Q6HR PRN 12/12/15 02/01/17 History Triamcinolone 0.1% Ointment 1 applic TOPICAL TID PRN 12/19/15 02/01/17 History [Kenalog 0.1% Ointment] Ranitidine HCl [Zantac] 75 mg PO HS 01/31/16 02/01/17 History Amino Acids/Protein Hydrolys 30 ml PO DAILY 01/01/17 02/01/17 History [Pro-Stat Supplement] Lisinopril [Zestril] 2.5 mg PO QAM 01/01/17 02/01/17 History Menthol/Zinc Oxide [Calmoseptine 1 applic TOPICAL TID PRN 01/01/17 02/01/17 History Ointment] Sennosides/Docusate Sodium 1 tab PO BID 01/01/17 02/01/17 History [Precious-Colace Tablet] metFORMIN HCL [Glucophage Xr] 500 mg PO BID 01/05/17 02/01/17 History HYDROcodone/APAP 5-325MG [U[place] 2 tab PO Q4H PRN 02/01/17 02/01/17 History 5-325] Multivitamins, Thera [Multivitamin 1 tab PO HS 02/01/17 02/01/17 History (formulary)] Allergies Allergy/AdvReac Type Severity Reaction Status Date / Time adhesive Allergy Unknown Verified 02/01/17 08:58 chocolate flavor Allergy Unknown Verified 02/01/17 08:58 egg Allergy Unknown Verified 02/01/17 08:58 heparin (porcine) Allergy Unknown Verified 02/01/17 08:58 [heparin,porcine] Sulfa (Sulfonamide Allergy Unknown Verified 02/01/17 08:58 Antibiotics) Milk Containing Products AdvReac Nausea & Verified 02/01/17 08:58 [Dairy] Vomiting & Diarrhea Surgical - Exam hunched over, mulitple uclers, indwelling arana catheter - General moderate distress - Eyes no icteric - ENT normal pinna, normal nares - Respiratory normal expansion, normal respiratory effort - Cardiovascular Rhythm: regular - Abdomen Abdomen: soft, non tender - Integumentary 1 x 4.5 x 2 cm, 3 cm undermining ischail decubitus wound with 3 cm indermining and exposed ischaila tuberosity. Assessment and Plan (1) Stage 4 decubitus ulcer Status: Acute (2) Bladder calculus Status: Acute (3) CHF (congestive heart failure) Status: Acute (4) Infection due to ESBL-producing Escherichia coli Status: Acute (5) Multiple sclerosis Status: Acute (6) Stage IV pressure ulcer of left hip Status: Acute Plan: Patietn has suspected osteomyleitis not proven by any other means. I have recommended biopsy of hte ischium and debridemtn of ht wound in the opearting room. Infomred conset was obtained from the A.
[2017-02-02 13:21] LABS: Glucose,Whole Blood 85 mg/dL (75-99)
[2017-02-02] MEDS ORDERED: LACTATED RINGERS 1,000 ML IV ONE (13:24)
[2017-02-02] MEDS ORDERED: HEPARIN SODIUM,PORCINE 5,000 UNIT/ML 1 ML VIAL SQ ONE (13:31)
[2017-02-02] MEDS ORDERED: LIDOCAINE 1% INJ 10MG/ML (20 ML MDV) ONE (13:43)
[2017-02-02] MEDS ORDERED: ePHEDrine SULFATE/0.9% NACL/PF 50 MG/5 ML SYRINGE IV ONE (13:43)
[2017-02-02] MEDS ORDERED: PHENYLEPHRINE-0.9% NACL SYG 1 MG/10 ML SYRINGE ONE (13:43)
[2017-02-02] MEDS ORDERED: PROPOFOL 10 MG/ML 20 ML VIAL IV ONE (13:43)
[2017-02-02] MEDS ORDERED: fentaNYL (PF) 50 MCG/ML 2 ML AMP ONE (13:43)
[2017-02-02] MEDS ORDERED: diphenhydrAMINE 50 MG/ML 1 ML VIAL ONE (13:43)
[2017-02-02] MEDS ORDERED: EPINEPHrine 10 ML SYRINGE (0.1 MG/ML) ONE (13:43)
--- NOTE | 2017-02-02 14:36 | P.OP ---
Date of Procedure: 02/02/17 Preoperative Diagnosis: Stage IV left ischial decubitus ulcer Postoperative Diagnosis: Stage IV left ischial decubitus ulcer Procedure(s) Performed: Sharp excisional debridement of the wound using a curet, bone biopsy using the Albert. Implants: Anesthesia: NAVA Surgeon: Jojo Bergeron Pathology: other (Culture of the wound including bone fragments taken from the biopsy.) Condition: stable Disposition: PACU Indications for Procedure: Operative Findings: Description of Procedure: This 61-year-old male with multiple sclerosis and other medical problems on he has a nonhealing he still decubitus ulcer stage IV. Although previous radiology has not proven osteomyelitis the continues to have an open wound. Therefore we have recommended an excisional debridement with biopsy of the bone so as to rule out osteomyelitis. Informed consent was obtained from the peel- away patient identified in preoperative operating holding and appropriately marked. Patient was taken the operating room placed in supine position and given IV sedation after which she was placed in right lateral decubitus position. The VAC dressing was removed and the area was prepped and draped in the usual sterile surgical fashion. Curette was used to sharp excisional debridement of the wound itself. The transition tissue over the sternum was taken off the help of the Albert and then once instrument was exposed multiple bites of the bone was taken down and getting us appropriate amount of bony tissue. Hemostasis was secured with the help of electrocautery. After further debridement and hemostasis around the wound was also probed electrocautery was thoroughly irrigated and sucked dry and then a wound VAC dressing was applied. Patient tolerated procedure well there were no complications taken to recovery room in stable condition. The wound itself measured 4 x 4 by 6 cm both pre-and postop
[2017-02-02 14:52] VITALS: TEMP 97.2
[2017-02-02 14:54] VITALS: RESP 16
[2017-02-02 15:00] LABS: Glucose,Whole Blood 79 mg/dL (75-99)
[2017-02-02 16:07] VITALS: BP 105/71; PULSE 93
== END 2017-02-02 16:07 | disposition home or self-care (01) ==
LOC: OR 12:35
PROVIDERS: ATTEND Surgery
DX: I96 Gangrene, not elsewhere classified (principal); L89.324 Pressure ulcer of left buttock, stage 4; N21.0 Calculus in bladder; I13.0 Hypertensive heart and chronic kidney disease with heart failure and stage 1 through stage 4 chronic kidney disease, or unspecified chronic kidney disease; I50.9 Heart failure, unspecified; N18.9 Chronic kidney disease, unspecified; E11.22 Type 2 diabetes mellitus with diabetic chronic kidney disease; B96.20 Unspecified Escherichia coli [E. coli] as the cause of diseases classified elsewhere; G35 Multiple sclerosis; F03.90 Unspecified dementia, unspecified severity, without behavioral disturbance, psychotic disturbance, mood disturbance, and anxiety; H57.9 Unspecified disorder of eye and adnexa; K21.9 Gastro-esophageal reflux disease without esophagitis; I34.1 Nonrheumatic mitral (valve) prolapse; N28.9 Disorder of kidney and ureter, unspecified; N31.2 Flaccid neuropathic bladder, not elsewhere classified; I73.9 Peripheral vascular disease, unspecified; F32.9 Major depressive disorder, single episode, unspecified; Z86.14 Personal history of Methicillin resistant Staphylococcus aureus infection; Z79.899 Other long term (current) drug therapy; Z79.84 Long term (current) use of oral hypoglycemic drugs; Z91.012 Allergy to eggs; Z91.011 Allergy to milk products; Z88.2 Allergy status to sulfonamides; Z88.8 Allergy status to other drugs, medicaments and biological substances; Z91.048 Other nonmedicinal substance allergy status; Z91.018 Allergy to other foods; Z87.891 Personal history of nicotine dependence
CPT/HCPCS: 88307; 88311; 11044; J1200; J1644; J1100; J2405; J2001; J0171; J3010; J2370; J2704

== ENCOUNTER 2019-02-16 10:34 | Inpatient (IN) | payer MEDICARE ==
--- NOTE | 2019-02-16 12:21 | ED ---
Wound/Laceration HPI - General Chief Complaint: Wound/Laceration Stated Complaint: Came over from Wound Center Time Seen by Provider: 02/16/19 10:47 Source: patient Mode of arrival: ambulatory Limitations: no limitations - History of Present Illness Initial Comments: Patient is a 63-year-old male who was sent to the emergency department by the wound clinic for bilateral decubitus sacral ulcers that needs debridement. Patient has past medical history of MS and diabetes. Patient currently has a PICC line in the right arm. Patient denies any fever, chills. Patient does admit to pain in the sacrum area. Patient denies nausea, vomiting, abdominal pain at this time. Patient uses a wheelchair and or walker to get around his house. Patient has no other complaints at this time. Upon arrival to ER, vital signs stable, afebrile. - Related Data Home Medications Medication Instructions Recorded Confirmed Gabapentin [Neurontin] 200 mg PO TID@0500,1300,2100 08/30/14 02/16/19 Nystatin 100,000Unit/gm Cream 1 applic TOPICAL BID 08/30/14 02/16/19 [Mycostatin Cream] Polyethylene Glycol 3350 [Miralax] 17 gm PO BID 08/31/14 02/16/19 Bisacodyl [Dulcolax] 10 mg RECTAL DAILY PRN 09/26/15 02/16/19 Memantine [Namenda] 10 mg PO BID 09/26/15 02/16/19 Amino Acids/Protein Hydrolys 30 ml PO DAILY 01/01/17 02/16/19 [Pro-Stat Supplement] Lisinopril [Zestril] 2.5 mg PO QAM 01/01/17 02/16/19 metFORMIN HCL [Glucophage Xr] 500 mg PO DAILY 01/05/17 02/16/19 Acetaminophen Tab [Tylenol Tab] 650 mg PO TID 02/16/19 02/16/19 Collagenase [Santyl] 1 applic TOPICAL DAILY 02/16/19 02/16/19 DULoxetine HCL [Cymbalta] 20 mg PO DAILY 02/16/19 02/16/19 Docusate [Colace] 100 mg PO HS 02/16/19 02/16/19 Doxycycline Hyclate 100 mg PO Q12H 02/16/19 02/16/19 Magnesium Hydroxide [Milk of 2,400 mg PO DAILY PRN 02/16/19 02/16/19 Magnesia] Allergies Allergy/AdvReac Type Severity Reaction Status Date / Time adhesive Allergy Unknown Verified 02/16/19 11:55 chocolate flavor Allergy Unknown Verified 02/16/19 11:55 egg Allergy Unknown Verified 02/16/19 11:55 heparin (porcine) Allergy Unknown Verified 02/16/19 11:55 [heparin,porcine] Sulfa (Sulfonamide Allergy Unknown Verified 02/16/19 11:55 Antibiotics) Milk Containing Products AdvReac Nausea & Verified 02/16/19 11:55 [Dairy] Vomiting & Diarrhea Review of Systems ROS Statement: Those systems with pertinent positive or pertinent negative responses have been documented in the HPI. ROS Other: All systems not noted in ROS Statement are negative. Past Medical History Past Medical History: Dementia, Diabetes Mellitus, Eye Disorder, GERD/Reflux, Mitral Valve Prolapse (MVP), Musculoskeletal Disorder, Neurologic Disorder, Renal Disease, Vascular Disorder Additional Past Medical History / Comment(s): Multiple sclerosis, atony of bladder-neurogenic bladder with suprapubic catheter, UTIs with sepsis, bowel incontinence, decubs in past, cellulitis bilateral lower legs in past, bilateral leg weakness - unable to stand, nephrolithiasis, bladder stones, back pain, DDD, muscle spasms, PVD, macular degeneration bilateral eyes with poor vision. Wound center pt-goes there on Wednesdays.pt-goes there on Wednesdays. History of Any Multi-Drug Resistant Organisms: ESBL, MRSA, Other MDRO Date of last positivie culture/infection: 01/19/19 MRSA 02/26/17 ESBL MDRO Source:: MRSA HIP, ESBL URINE Past Surgical History: No Surgical Hx Reported Additional Past Surgical History / Comment(s): Supra pubic catheter placement and removal of bladder stones, I&D scrotal abcess, penile implant and removal with necrotic tissue removal, PICC line insertion and since removed, debridement lt trochanter, placement and subsequent removal of semimaleable penile prosthesis. Past Anesthesia/Blood Transfusion Reactions: No Reported Reaction Additional Past Anesthesia/Blood Transfusion Reaction / Comment(s): Pt states he has never received blood. Past Psychological History: Depression Smoking Status: Former smoker Past Alcohol Use History: None Reported Past Drug Use History: None Reported - Past Family History Mother Family Medical History: No Reported History Additional Family Medical History / Comment(s): Pt believes his mother was healthy. She has . Father Family Medical History: Diabetes Mellitus Additional Family Medical History / Comment(s): Pt states he believes his dad in his 60's. General Exam - General Exam Comments Initial Comments: GENERAL: Well-appearing, well-nourished and in no acute distress. HEAD: Atraumatic, normocephalic. EYES: Pupils equal round and reactive to light, extraocular movements intact, sclera anicteric, conjunctiva are normal. ENT: TMs normal, nares patent, oropharynx clear without exudates. Moist mucous membranes. NECK: Normal range of motion, supple without lymphadenopathy or JVD. LUNGS: Breath sounds clear to auscultation bilaterally and equal. No wheezes rales or rhonchi. HEART: Regular rate and rhythm without murmurs, rubs or gallops. ABDOMEN: Soft, nontender, normoactive bowel sounds. No guarding, no rebound. No masses appreciated. : Deferred EXTREMITIES: Normal range of motion, no pitting or edema. No clubbing or cyanosis. NEUROLOGICAL: Cranial nerves II through XII grossly intact. Normal speech. PSYCH: Normal mood, normal affect. SKIN: Warm, dry. Bilateral decubitus sacral ulcers, stage 4. Mild surrounding erythema and pain with palpation. Wounds have active discharge. Limitations: no limitations Course Vital Signs 02/16/19 02/16/19 10:37 14:38 Temperature 96.7 F L Pulse Rate 99 95 Respiratory 18 18 Rate Blood Pressure 121/64 122/73 O2 Sat by Pulse 98 95 Oximetry Medical Decision Making - Medical Decision Making Patient is a 63-year-old male presenting from the wound clinic with bilateral sacral decubitus ulcers that are needed debridement. Vital signs are stable upon arrival, afebrile. Patient has history of MS and diabetes. Patient denies any fever, chills, nausea, vomiting, abdominal pain. On exam patient has stage IV bilateral decubitus ulcers to have active yellow to reddish drainage. Labs reveal leukocytosis of 17. Hemoglobin 11.3. Lactic acid is 1.9. Electrolytes are within normal limits. Glucose is 257. UA shows 4+ glucose, small blood, 78 WBCs. Patient given fluids, antibiotics. Case discussed with Dr. Le. Patient will be admitted with consult ID and surgery. - Lab Data Result diagrams: 02/16/19 13:47 02/16/19 13:47 Lab Results 02/16/19 02/16/19 02/16/19 Range/Units 13:35 13:47 13:47 WBC 17.0 H (3.8-10.6) k/uL RBC 4.44 (4.30-5.90) m/uL Hgb 11.3 L (13.0-17.5) gm/dL Hct 37.5 L (39.0-53.0) % MCV 84.6 (80.0-100.0) fL MCH 25.6 (25.0-35.0) pg MCHC 30.2 L (31.0-37.0) g/dL RDW 15.2 (11.5-15.5) % Plt Count 627 H (150-450) k/uL Neutrophils % 82 % Lymphocytes % 8 % Monocytes % 6 % Eosinophils % 2 % Basophils % 0 % Neutrophils # 14.0 H (1.3-7.7) k/uL Lymphocytes # 1.3 (1.0-4.8) k/uL Monocytes # 1.1 H (0-1.0) k/uL Eosinophils # 0.3 (0-0.7) k/uL Basophils # 0.0 (0-0.2) k/uL Hypochromasia Marked Sodium 138 (137-145) mmol/L Potassium 4.4 (3.5-5.1) mmol/L Chloride 101 (98-107) mmol/L Carbon Dioxide 29 (22-30) mmol/L Anion Gap 8 mmol/L BUN 15 (9-20) mg/dL Creatinine 0.81 (0.66-1.25) mg/dL Est GFR (CKD-EPI)AfAm >90 (>60 ml/min/1.73 sqM) Est GFR (CKD-EPI)NonAf >90 (>60 ml/min/1.73 sqM) Glucose 257 H (74-99) mg/dL Plasma Lactic Acid Rey (0.7-2.0) mmol/L Calcium 8.7 (8.4-10.2) mg/dL Total Bilirubin 0.3 (0.2-1.3) mg/dL AST 14 L (17-59) U/L ALT 15 L (21-72) U/L Alkaline Phosphatase 117 (38-126) U/L Total Protein 7.3 (6.3-8.2) g/dL Albumin 2.8 L (3.5-5.0) g/dL Urine Color Yellow Urine Appearance Cloudy (Clear) Urine pH 6.0 (5.0-8.0) Ur Specific [place] 1.024 (1.001-1.035) Urine Protein 1+ H (Negative) Urine Glucose (UA) 4+ H (Negative) Urine Ketones Negative (Negative) Urine Blood Small H (Negative) Urine Nitrite Negative (Negative) Urine Bilirubin Negative (Negative) Urine Urobilinogen <2.0 (<2.0) mg/dL Ur Leukocyte Esterase Large H (Negative) Urine RBC 18 H (0-5) /hpf Urine WBC 78 H (0-5) /hpf Ur Squamous Epith Cells <1 (0-4) /hpf Urine Bacteria Occasional H (None) /hpf Urine Mucus Rare H (None) /hpf Urine Yeast (Budding) Many H (None) /hpf 02/16/19 Range/Units 13:47 WBC (3.8-10.6) k/uL RBC (4.30-5.90) m/uL Hgb (13.0-17.5) gm/dL Hct (39.0-53.0) % MCV (80.0-100.0) fL MCH (25.0-35.0) pg MCHC (31.0-37.0) g/dL RDW (11.5-15.5) % Plt Count (150-450) k/uL Neutrophils % % Lymphocytes % % Monocytes % % Eosinophils % % Basophils % % Neutrophils # (1.3-7.7) k/uL Lymphocytes # (1.0-4.8) k/uL Monocytes # (0-1.0) k/uL Eosinophils # (0-0.7) k/uL Basophils # (0-0.2) k/uL Hypochromasia Sodium (137-145) mmol/L Potassium (3.5-5.1) mmol/L Chloride (98-107) mmol/L Carbon Dioxide (22-30) mmol/L Anion Gap mmol/L BUN (9-20) mg/dL Creatinine (0.66-1.25) mg/dL Est GFR (CKD-EPI)AfAm (>60 ml/min/1.73 sqM) Est GFR (CKD-EPI)NonAf (>60 ml/min/1.73 sqM) Glucose (74-99) mg/dL Plasma Lactic Acid Rey 1.9 (0.7-2.0) mmol/L Calcium (8.4-10.2) mg/dL Total Bilirubin (0.2-1.3) mg/dL AST (17-59) U/L ALT (21-72) U/L Alkaline Phosphatase (38-126) U/L Total Protein (6.3-8.2) g/dL Albumin (3.5-5.0) g/dL Urine Color Urine Appearance (Clear) Urine pH (5.0-8.0) Ur Specific [place] (1.001-1.035) Urine Protein (Negative) Urine Glucose (UA) (Negative) Urine Ketones (Negative) Urine Blood (Negative) Urine Nitrite (Negative) Urine Bilirubin (Negative) Urine Urobilinogen (<2.0) mg/dL Ur Leukocyte Esterase (Negative) Urine RBC (0-5) /hpf Urine WBC (0-5) /hpf Ur Squamous Epith Cells (0-4) /hpf Urine Bacteria (None) /hpf Urine Mucus (None) /hpf Urine Yeast (Budding) (None) /hpf Disposition Clinical Impression: Stage 4 decubitus ulcer, UTI (lower urinary tract infection) Disposition: ADMITTED IP TO THIS [facility] Condition: Stable Is patient prescribed a controlled substance at d/c from ED?: No Decision Date: 02/16/19 Decision Time: 14:32
[2019-02-16 14:02] LABS: Appearance,Urine Cloudy (Clear); Bacteria,Urine Occasional /hpf; Bilirubin,Urine Negative (Negative); Blood,Urine Small (Negative); Budding Yeast,Urine Many /hpf; Color,Urine Yellow; Glucose,Urine (UA) 4+ (Negative); Ketones,Urine Negative (Negative); Leukocyte Esterase,Urine Large (Negative); Mucus,Urine Rare /hpf; Nitrite,Urine Negative (Negative); Protein,Urine 1+ (Negative); RBC,Urine 18 /hpf (0-5); Specific Gravity,Urine 1.024 (1.001-1.035); Squamous Epithelial Cell,Urine <1 /hpf (0-4); Urobilinogen,Urine <2.0 mg/dL (<2.0)
[2019-02-16] MEDS ORDERED: traMADol 50 MG TAB PO PRN (14:08)
[2019-02-16] MEDS ORDERED: ONDANSETRON 4 MG/2 ML VIAL IVP PRN (14:08)
[2019-02-16] MEDS ORDERED: ACETAMINOPHEN TAB 325 MG TAB PO PRN (14:08)
[2019-02-16] MEDS ORDERED: NALOXONE 0.4 MG/ML 1 ML VIAL IV PRN (14:08)
[2019-02-16 14:19] LABS: Basophils % (A) 0 %; Eosinophils # (A) 0.3 k/uL (0-0.7); Eosinophils % (A) 2 %; HCT 37.5 % (39.0-53.0); HGB 11.3 gm/dL (13.0-17.5); Hypochromasia Marked; Lymphocytes # (A) 1.3 k/uL (1.0-4.8); Lymphocytes % (A) 8 %; MCH 25.6 pg (25.0-35.0); MCHC 30.2 g/dL (31.0-37.0); MCV 84.6 fL (80.0-100.0); Mean Platelet Volume 7.2; Monocytes # (A) 1.1 k/uL (0-1.0); Monocytes % (A) 6 %; Neutrophils % (A) 82 %; Platelet Count 627 k/uL (150-450); RBC 4.44 m/uL (4.30-5.90); RDW 15.2 % (11.5-15.5)
[2019-02-16 14:26] LABS: ALT 15 U/L (21-72); AST 14 U/L (17-59); African American GFR (CKD) >90 (>60 ml/min/1.73 sqM); Albumin 2.8 g/dL (3.5-5.0); Alkaline Phosphatase 117 U/L (38-126); Anion Gap 8 mmol/L; Blood Urea Nitrogen 15 mg/dL (9-20); Calcium 8.7 mg/dL (8.4-10.2); Carbon Dioxide 29 mmol/L (22-30); Chloride 101 mmol/L (98-107); Glucose 257 mg/dL (74-99); Potassium 4.4 mmol/L (3.5-5.1); Sodium 138 mmol/L (137-145); Total Bilirubin 0.3 mg/dL (0.2-1.3); Total Protein 7.3 g/dL (6.3-8.2)
[2019-02-16] MEDS ORDERED: SODIUM CHLORIDE 0.9% 1,000 ML IV STA (15:09)
[2019-02-16] MEDS ORDERED: BISACODYL 10 MG SUPP RECTAL PRN (15:09)
[2019-02-16] MEDS ORDERED: MAGNESIUM HYDROXIDE 2,400 MG/10 ML CUP PO PRN (15:09)
[2019-02-16] MEDS ORDERED: VANCOMYCIN IV PER PHARMACY 1 EACH MISC MISCELLANE PRN (15:09)
[2019-02-16] MEDS ORDERED: HYDROmorphone 0.5 MG/0.5 ML SYRINGE IVP PRN (15:10)
[2019-02-16] MEDS ORDERED: ALPRAZolam 0.25 MG TAB PO PRN (15:10)
[2019-02-16] MEDS ORDERED: VANCOMYCIN 1,250 MG in SODIUM CHLORIDE 0.9% 250 ML IVPB SCH (18:00)
[2019-02-16] MEDS: PIPERACILLIN-TAZOBACTAM 3.375 GM in SODIUM CHLORIDE 0.9% 100 ML IVPB SCH (23:13)
[2019-02-16] MEDS: NYSTATIN 100,000UNIT/GM CREAM 30 GM TUBE TOPICAL SCH (23:14)
[2019-02-16] MEDS: POLYETHYLENE GLYCOL 3350 17 GM POWD.PACK PO SCH (23:15)
[2019-02-16] MEDS: DOCUSATE 100 MG CAP PO SCH (23:15)
[2019-02-16] MEDS: GABAPENTIN 100 MG CAP PO SCH (23:15)
[2019-02-16] MEDS: MEMANTINE 10 MG TAB PO SCH (23:15)
[2019-02-16] MEDS: LISINOPRIL 2.5 MG TAB PO SCH (23:27)
[2019-02-16] MEDS: SODIUM CHLORIDE 0.9% 1,000 ML IV SCH (23:28)
--- NOTE | 2019-02-17 01:42 | HP ---
HISTORY AND PHYSICAL DATE OF SERVICE: 02/16/2019 CHIEF COMPLAINT: Bilateral sacral wounds. HISTORY OF PRESENT ILLNESS: This 63-year-old gentleman with a past medical history of longstanding multiple sclerosis with multiple complications, contractures and gait dysfunction also had history of osteomyelitis, nephrolithiasis, diabetes type 2. The patient resident of [facility] in [place] being followed by Dr. David Andersen. The patient apparently evaluated in the ER, referred from [facility] with bilateral decubitus ulcers. The patient also had diabetes mellitus. Patient also had a PICC line in the right arm. The patient is currently unable to give a coherent history because of the multiple medical issues, most of the history taken from my discussions with staff and review of chart. The patient admitted for further evaluation and treatment. Infectious Disease and surgical evaluation has been sought. There is no history of fever, rigors or chills. No history of headache, loss of consciousness or seizures. PAST MEDICAL HISTORY: History of dementia, history of diabetes, multiple sclerosis with contractures, mitral valve prolapse, history of neurologic disorder, history of neurogenic bladder, history of ESBL, MRSA, MDRO. History of depression. MEDICATIONS: Prior to admission include home medications are: 1. Metformin that is 500 mg b.i.d. 2. MiraLAX 17 g daily. 3. Mycostatin 1 application b.i.d. 4. Namenda 10 mg p.o. b.i.d. 5. Milk of magnesia 2.4 g daily. 6. Zestril 2.5 mg q.h.s. 7. Neurontin 200 mg p.o. daily. 8. Doxycycline 100 mg p.o. b.i.d. 9. Colace 100 mg q.h.s. 10.Cymbalta 20 mg b.i.d. 11.Santyl 1 application daily. 12.Dulcolax 10 mg daily p.r.n. 13.ProStat 30 mL daily. 14.Tylenol 650 t.i.d. ALLERGIES: ADHESIVE TAPES, CHOCOLATE FLAVOR, EGG, HEPARIN, SULFA, MILK. FAMILY HISTORY: No history of any heart disease or strokes in the family per chart. REVIEW OF SYMPTOMS: Review of system could not be taken because the patient's change in mental status. PHYSICAL EXAM: Patient is conscious, mildly confused. Pulse 98, blood pressure 120/59, respirations 16, temperature 99 degrees, pulse ox 94% on room air. HEENT: Conjunctivae normal. Oral mucosa moist. NECK is no jugular venous distention. No carotid bruit. No lymph node enlargement. CARDIOVASCULAR SYSTEM: S1, S2 normal. No S3, no S4. RESPIRATORY: Breath sounds diminished in the bases. A few scattered rhonchi. No crackles. ABDOMEN: Soft, nontender. No mass. LEGS: Contractures. NERVOUS SYSTEM: Diffuse contractures, diffusely weak. Weakness, wasting, abnormal movements of the eyes also present with nystagmus. Spontaneous nystagmus. SKIN: Significant grade 3-4 ulcers in the gluteal region. Lymphatics: No lymph nodes palpable in the neck, axillae or groin. JOINTS: Contractures. LABS: WBC 7, hemoglobin 11.3. ASSESSMENT: 1. Acute bilateral sacral decubitus ulcers with grade 4 pressure ulcers with possible sepsis, present on admission. 2. Change in mental status, metabolic encephalopathy, acute on chronic, multifactorial. 3. Increased WBC. 4. Anemia, normocytic possibly nutritional. 5. Multiple sclerosis with contractures and gait dysfunction. 6. Diabetes mellitus type 2. 7. Possible urinary tract infection. 8. Dementia. 9. History of gastroesophageal reflux disease. 10.History of mitral valve prolapse. 11.History of degenerative joint disease. 12.History of neurogenic bladder, suprapubic catheter. 13.History urinary tract infection with sepsis. 14.History of bowel incontinence. 15.History of muscle spasm. 16.History ESBL MRSA. 17.History of depression. 18.FULL CODE. 19.Severe protein calorie malnutrition with BMI of 19.4. RECOMMENDATIONS AND DISCUSSION: This 63-year-old gentleman who presented with multiple complex medical issues, at this time, I recommend to continue current medications, management and symptomatic treatment. Otherwise, at this time, I recommend broad-spectrum IV antibiotics. Obtain cultures. Otherwise symptomatic treatment. Prognosis guarded. Surgical evaluation has been sought for possible debridement, excisional debridement. Otherwise, we will continue to monitor. Guarded prognosis because of multiple complex medical issues. Further recommendations to follow. A copy of dictation being forwarded to Dr. David Andersen who is the primary care physician. MMODL / IJN: [id number] /
[2019-02-17] MEDS: GABAPENTIN 100 MG CAP PO SCH ×3 (06:44→22:20)
[2019-02-17] MEDS: metFORMIN 500 MG TAB PO SCH ×2 (08:39→17:29)
[2019-02-17] MEDS: PIPERACILLIN-TAZOBACTAM 3.375 GM in SODIUM CHLORIDE 0.9% 100 ML IVPB SCH ×2 (08:39→16:03)
[2019-02-17] MEDS: LISINOPRIL 2.5 MG TAB PO SCH (08:40)
[2019-02-17] MEDS: MEMANTINE 10 MG TAB PO SCH ×2 (08:40→22:21)
[2019-02-17] MEDS: NYSTATIN 100,000UNIT/GM CREAM 30 GM TUBE TOPICAL SCH ×2 (08:40→22:22)
[2019-02-17] MEDS: PANTOPRAZOLE 40 MG TABLET PO SCH (08:40)
[2019-02-17] MEDS: POLYETHYLENE GLYCOL 3350 17 GM POWD.PACK PO SCH ×3 (08:41→22:28)
[2019-02-17] MEDS: COLLAGENASE 250 UNIT/GM OINTMENT 30 GM TUBE TOPICAL SCH (08:41)
[2019-02-17] MEDS: DULoxetine HCL 20 MG CAPSULE.DR PO SCH (08:42)
[2019-02-17] MEDS: SODIUM CHLORIDE 0.9% 1,000 ML IV SCH (08:44)
[2019-02-17] MEDS ORDERED: NON-FORMULARY DRUG (Amino Acids/Protein Hydrolys [Pro-Stat Supplement] 30 ML) PO SCH (09:00)
[2019-02-17 09:49] LABS: African American GFR (CKD) >90 (>60 ml/min/1.73 sqM); Anion Gap 8 mmol/L; Blood Urea Nitrogen 13 mg/dL (9-20); Calcium 8.3 mg/dL (8.4-10.2); Carbon Dioxide 25 mmol/L (22-30); Chloride 106 mmol/L (98-107); Glucose 155 mg/dL (74-99); Potassium 4.1 mmol/L (3.5-5.1); Sodium 139 mmol/L (137-145)
[2019-02-17 10:08] LABS: Basophils # (A) 0.2 k/uL (0-0.2); Basophils % (A) 1 %; Eosinophils # (A) 0.3 k/uL (0-0.7); Eosinophils % (A) 2 %; HCT 34.9 % (39.0-53.0); HGB 11.2 gm/dL (13.0-17.5); Hypochromasia Slight; Lymphocytes # (A) 0.7 k/uL (1.0-4.8); Lymphocytes % (A) 5 %; MCH 26.1 pg (25.0-35.0); MCV 81.6 fL (80.0-100.0); Mean Platelet Volume 6.8; Monocytes # (A) 1.2 k/uL (0-1.0); Monocytes % (A) 8 %; Neutrophils # (A) 12.1 k/uL (1.3-7.7); Neutrophils % (A) 82 %; Platelet Count 541 k/uL (150-450); RBC 4.28 m/uL (4.30-5.90); RDW 15.2 % (11.5-15.5); WBC 14.8 k/uL (3.8-10.6)
--- NOTE | 2019-02-17 10:16 | P.GSCN ---
<Yoana Buckley A - Last Filed: 02/17/19 10:14> History of Present Illness Consult date: 02/17/19 Reason for Consult: bilateral sacral ulcers Requesting physician: Michelle Sultana History of present illness: CHIEF COMPLAINT: bilateral sacral ulcers HISTORY OF PRESENT ILLNESS: 63 year old male who presented to the ER for evaluation of bilateral sacral ulcers. Patient has a history of MS and is bed bound. He resides at [facility]. He is somewhat of a poor historian. He reports having these ulcers for "years". He states he has seen Dr. Flowers in the wound care center and believes he has had these areas debrided twice. According to notes from wound care center from [id number] patient has been evaluated at [facility] and was deemed not a candidate for flap or other surgical procedure. He has underwent large debridement and bone biopsy with Dr. Bergeron. Bx was negative for osteomyelitis per wound care dictation. PAST MEDICAL HISTORY: See list. PAST SURGICAL HISTORY: See list. SOCIAL HISTORY: No illicit drug use. REVIEW OF SYSTEMS: CONSTITUTIONAL: Denies fever or chills. HEENT: Denies blurred vision, vision changes, or eye pain. Denies hemoptysis CARDIOVASCULAR: Denies chest pain or pressure. RESPIRATORY: No shortness of breath. GASTROINTESTINAL: Denies abdominal pain. Denies nausea or vomiting. HEMATOLOGIC: Denies bleeding disorders. GENITOURINARY: Denies any blood in urine. SKIN: Reports ulcers to buttocks. Denies pruitis. Denies rash. PHYSICAL EXAM: VITAL SIGNS: Reviewed. GENERAL: Well-developed in no acute distress. HEENT: No sclera icterus. Extraocular movements grossly intact. Moist buccal mucosa. Head is atraumatic, normocephalic. ABDOMEN: Soft. Nondistended. Nontender. NEUROLOGIC: Alert and oriented. Cranial nerves II through XII grossly intact. SKIN: Large bilateral sacral/hip ulcers. Right ulcer with necrotic tissue present. Both with sloughing and foul odor. LABORATORY DATA: WBC 17.0. Hemoglobin 11.3. ASSESSMENT: 1. Bilateral stage IV hip/sacral decubitus ulcer 2. History of multiple sclerosis, patient bedbound 3. History of ESBL and MRSA 4. Leukocytosis PLAN: 1. NPO 2. Infectious disease on consult. Antibiotics per ID 3. Patient to undergo debridement of bilateral decubitis ulcers today with Dr. Willoughby. Nurse practitioner note has been reviewed by physician. Signing provider agrees with the documented findings, assessment, and plan of care. Past Medical History Past Medical History: Dementia, Diabetes Mellitus, Eye Disorder, GERD/Reflux, Mitral Valve Prolapse (MVP), Musculoskeletal Disorder, Neurologic Disorder, Renal Disease, Vascular Disorder Additional Past Medical History / Comment(s): Multiple sclerosis, atony of bl adder-neurogenic bladder with suprapubic catheter, UTIs with sepsis, bowel incontinence, decubs in past, cellulitis bilateral lower legs in past, bilateral leg weakness - unable to stand, nephrolithiasis, bladder stones, back pain, DDD, muscle spasms, PVD, macular degeneration bilateral eyes with poor vision. Wound center pt-goes there on Wednesdays.pt-goes there on Wednesdays. History of Any Multi-Drug Resistant Organisms: ESBL, MRSA, Other MDRO Year Discovered:: 01/19/19 MRSA 02/26/17 ESBL MDRO Source:: MRSA HIP, ESBL URINE Past Surgical History: No Surgical Hx Reported Additional Past Surgical History / Comment(s): Supra pubic catheter placement and removal of bladder stones, I&D scrotal abcess, penile implant and removal with necrotic tissue removal, PICC line insertion and since removed, debridement lt trochanter, placement and subsequent removal of semimaleable penile prosthesis. Past Anesthesia/Blood Transfusion Reactions: No Reported Reaction Additional Past Anesthesia/Blood Transfusion Reaction / Comm: Pt states he has never received blood. Past Psychological History: Depression Additional Psychological History / Comment(s): Pt resides at [facility] Smoking Status: Former smoker Past Alcohol Use History: None Reported Additional Past Alcohol Use History / Comment(s): Pt states he started smoking in and quit in 2004 Past Drug Use History: None Reported - Past Family History Mother Family Medical History: No Reported History Additional Family Medical History / Comment(s): Pt believes his mother was healthy. She has . Father Family Medical History: Diabetes Mellitus Additional Family Medical History / Comment(s): Pt states he believes his dad in his 60's. Medications and Allergies Home Medications Medication Instructions Recorded Confirmed Type Gabapentin [Neurontin] 200 mg PO TID@0500,1300,2100 08/30/14 02/16/19 History Nystatin 100,000Unit/gm Cream 1 applic TOPICAL BID 08/30/14 02/16/19 History [Mycostatin Cream] Polyethylene Glycol 3350 [Miralax] 17 gm PO BID 08/31/14 02/16/19 History Bisacodyl [Dulcolax] 10 mg RECTAL DAILY PRN 09/26/15 02/16/19 History Memantine [Namenda] 10 mg PO BID 09/26/15 02/16/19 History Amino Acids/Protein Hydrolys 30 ml PO DAILY 01/01/17 02/16/19 History [Pro-Stat Supplement] Lisinopril [Zestril] 2.5 mg PO QAM 01/01/17 02/16/19 History metFORMIN HCL [Glucophage Xr] 500 mg PO DAILY 01/05/17 02/16/19 History Acetaminophen Tab [Tylenol Tab] 650 mg PO TID 02/16/19 02/16/19 History Collagenase [Santyl] 1 applic TOPICAL DAILY 02/16/19 02/16/19 History DULoxetine HCL [Cymbalta] 20 mg PO DAILY 02/16/19 02/16/19 History Docusate [Colace] 100 mg PO HS 02/16/19 02/16/19 History Doxycycline Hyclate 100 mg PO Q12H 02/16/19 02/16/19 History Magnesium Hydroxide [Milk of 2,400 mg PO DAILY PRN 02/16/19 02/16/19 History Magnesia] Allergies Allergy/AdvReac Type Severity Reaction Status Date / Time adhesive Allergy Unknown Verified 02/16/19 11:55 chocolate flavor Allergy Unknown Verified 02/16/19 11:55 egg Allergy Unknown Verified 02/16/19 11:55 heparin (porcine) Allergy Unknown Verified 02/16/19 11:55 [heparin,porcine] Sulfa (Sulfonamide Allergy Unknown Verified 02/16/19 11:55 Antibiotics) Milk Containing Products AdvReac Nausea & Verified 02/16/19 11:55 [Dairy] Vomiting & Diarrhea Surgical - Exam Vital Signs Temp Pulse Resp BP Pulse Ox 96.7 F L 99 18 121/64 98 02/16/19 10:37 02/16/19 10:37 02/16/19 10:37 02/16/19 10:37 02/16/19 10:37 Results - Labs 02/17/19 08:43 02/17/19 08:43 Abnormal Lab Results - Last 24 Hours (Table) 02/16/19 02/16/19 02/16/19 Range/Units 13:35 13:47 13:47 WBC 17.0 H (3.8-10.6) k/uL Hgb 11.3 L (13.0-17.5) gm/dL Hct 37.5 L (39.0-53.0) % MCHC 30.2 L (31.0-37.0) g/dL Plt Count 627 H (150-450) k/uL Neutrophils # 14.0 H (1.3-7.7) k/uL Monocytes # 1.1 H (0-1.0) k/uL Glucose 257 H (74-99) mg/dL Calcium (8.4-10.2) mg/dL AST 14 L (17-59) U/L ALT 15 L (21-72) U/L Albumin 2.8 L (3.5-5.0) g/dL Urine Protein 1+ H (Negative) Urine Glucose (UA) 4+ H (Negative) Urine Blood Small H (Negative) Ur Leukocyte Esterase Large H (Negative) Urine RBC 18 H (0-5) /hpf Urine WBC 78 H (0-5) /hpf Urine Bacteria Occasional H (None) /hpf Urine Mucus Rare H (None) /hpf Urine Yeast (Budding) Many H (None) /hpf 02/17/19 Range/Units 08:43 WBC (3.8-10.6) k/uL Hgb (13.0-17.5) gm/dL Hct (39.0-53.0) % MCHC (31.0-37.0) g/dL Plt Count (150-450) k/uL Neutrophils # (1.3-7.7) k/uL Monocytes # (0-1.0) k/uL Glucose 155 H (74-99) mg/dL Calcium 8.3 L (8.4-10.2) mg/dL AST (17-59) U/L ALT (21-72) U/L Albumin (3.5-5.0) g/dL Urine Protein (Negative) Urine Glucose (UA) (Negative) Urine Blood (Negative) Ur Leukocyte Esterase (Negative) Urine RBC (0-5) /hpf Urine WBC (0-5) /hpf Urine Bacteria (None) /hpf Urine Mucus (None) /hpf Urine Yeast (Budding) (None) /hpf Microbiology - Last 24 Hours (Table) 02/16/19 13:35 Urine Culture - Preliminary Urine,Voided Diabetes panel 02/16/19 02/17/19 Range/Units 13:47 08:43 Sodium 138 139 (137-145) mmol/L Potassium 4.4 4.1 (3.5-5.1) mmol/L Chloride 101 106 (98-107) mmol/L Carbon Dioxide 29 25 (22-30) mmol/L BUN 15 13 (9-20) mg/dL Creatinine 0.81 0.79 (0.66-1.25) mg/dL Glucose 257 H 155 H (74-99) mg/dL Calcium 8.7 8.3 L (8.4-10.2) mg/dL AST 14 L (17-59) U/L ALT 15 L (21-72) U/L Alkaline Phosphatase 117 (38-126) U/L Total Protein 7.3 (6.3-8.2) g/dL Albumin 2.8 L (3.5-5.0) g/dL Calcium panel 02/16/19 02/17/19 Range/Units 13:47 08:43 Calcium 8.7 8.3 L (8.4-10.2) mg/dL Albumin 2.8 L (3.5-5.0) g/dL Pituitary panel 02/16/19 02/17/19 Range/Units 13:47 08:43 Sodium 138 139 (137-145) mmol/L Potassium 4.4 4.1 (3.5-5.1) mmol/L Chloride 101 106 (98-107) mmol/L Carbon Dioxide 29 25 (22-30) mmol/L BUN 15 13 (9-20) mg/dL Creatinine 0.81 0.79 (0.66-1.25) mg/dL Glucose 257 H 155 H (74-99) mg/dL Calcium 8.7 8.3 L (8.4-10.2) mg/dL Adrenal panel 02/16/19 02/17/19 Range/Units 13:47 08:43 Sodium 138 139 (137-145) mmol/L Potassium 4.4 4.1 (3.5-5.1) mmol/L Chloride 101 106 (98-107) mmol/L Carbon Dioxide 29 25 (22-30) mmol/L BUN 15 13 (9-20) mg/dL Creatinine 0.81 0.79 (0.66-1.25) mg/dL Glucose 257 H 155 H (74-99) mg/dL Calcium 8.7 8.3 L (8.4-10.2) mg/dL Total Bilirubin 0.3 (0.2-1.3) mg/dL AST 14 L (17-59) U/L ALT 15 L (21-72) U/L Alkaline Phosphatase 117 (38-126) U/L Total Protein 7.3 (6.3-8.2) g/dL Albumin 2.8 L (3.5-5.0) g/dL <Liam Willoughby - Last Filed: 02/17/19 16:20> History of Present Illness History of present illness: As above. We were consulted for debridement of decubitus ulcers. Patient has had worsening ulcerations over the last few months. Does follow in the wound care center. Options reviewed with the patient. We'll proceed with debridement at this time. Risks of bleeding, infection, wound enlargement, poor healing, osteomyelitis, anesthesia related complications reviewed. He understands and wishes to proceed. Surgical - Exam Vital Signs Temp Pulse Resp BP Pulse Ox 96.7 F L 99 18 121/64 98 02/16/19 10:37 02/16/19 10:37 02/16/19 10:37 02/16/19 10:37 02/16/19 10:37 Results - Labs 02/17/19 08:43 02/17/19 08:43 Abnormal Lab Results - Last 24 Hours (Table) 02/17/19 02/17/19 Range/Units 08:43 08:43 WBC 14.8 H (3.8-10.6) k/uL RBC 4.28 L (4.30-5.90) m/uL Hgb 11.2 L (13.0-17.5) gm/dL Hct 34.9 L (39.0-53.0) % Plt Count 541 H (150-450) k/uL Neutrophils # 12.1 H (1.3-7.7) k/uL Lymphocytes # 0.7 L (1.0-4.8) k/uL Monocytes # 1.2 H (0-1.0) k/uL Glucose 155 H (74-99) mg/dL Calcium 8.3 L (8.4-10.2) mg/dL Microbiology - Last 24 Hours (Table) 02/17/19 06:15 Wound Culture - Preliminary Buttock 02/17/19 06:15 Wound Culture - Preliminary Buttock 02/16/19 13:35 Urine Culture - Preliminary Urine,Voided Diabetes panel 02/17/19 Range/Units 08:43 Sodium 139 (137-145) mmol/L Potassium 4.1 (3.5-5.1) mmol/L Chloride 106 (98-107) mmol/L Carbon Dioxide 25 (22-30) mmol/L BUN 13 (9-20) mg/dL Creatinine 0.79 (0.66-1.25) mg/dL Glucose 155 H (74-99) mg/dL Calcium 8.3 L (8.4-10.2) mg/dL Calcium panel 02/17/19 Range/Units 08:43 Calcium 8.3 L (8.4-10.2) mg/dL Pituitary panel 02/17/19 Range/Units 08:43 Sodium 139 (137-145) mmol/L Potassium 4.1 (3.5-5.1) mmol/L Chloride 106 (98-107) mmol/L Carbon Dioxide 25 (22-30) mmol/L BUN 13 (9-20) mg/dL Creatinine 0.79 (0.66-1.25) mg/dL Glucose 155 H (74-99) mg/dL Calcium 8.3 L (8.4-10.2) mg/dL Adrenal panel 02/17/19 Range/Units 08:43 Sodium 139 (137-145) mmol/L Potassium 4.1 (3.5-5.1) mmol/L Chloride 106 (98-107) mmol/L Carbon Dioxide 25 (22-30) mmol/L BUN 13 (9-20) mg/dL Creatinine 0.79 (0.66-1.25) mg/dL Glucose 155 H (74-99) mg/dL Calcium 8.3 L (8.4-10.2) mg/dL
[2019-02-17] MEDS: VANCOMYCIN 1,250 MG in SODIUM CHLORIDE 0.9% 250 ML IVPB SCH ×2 (12:12→22:22)
[2019-02-17 14:03] VITALS: BMI 19.3
[2019-02-17] MEDS ORDERED: IV FLUID CONTINUATION 1,000 ML IV ONE (15:55)
[2019-02-17] MEDS ORDERED: fentaNYL (PF) 50 MCG/ML 2 ML AMP ONE (16:40)
[2019-02-17] MEDS ORDERED: KETAMINE 10 MG/ML 20 ML VIAL ONE (16:40)
[2019-02-17] MEDS ORDERED: PHENYLEPHRINE-0.9% NACL SYG 1 MG/10 ML SYRINGE ONE (16:40)
[2019-02-17] MEDS ORDERED: PROPOFOL 10 MG/ML 20 ML VIAL IV ONE (16:40)
[2019-02-17] MEDS ORDERED: LIDOCAINE 1% INJ 10MG/ML (20 ML MDV) ONE (16:40)
[2019-02-17 16:49] LABS: Glucose,Whole Blood 108 mg/dL (75-99)
--- NOTE | 2019-02-17 17:51 | P.OP ---
Date of Procedure: 02/17/19 Procedure(s) Performed: PREOPERATIVE DIAGNOSIS: Bilateral ischial decubitus ulcers POSTOPERATIVE DIAGNOSIS: Same PROCEDURE: Debridement SURGEON: Case EBL: 25 mL ANESTHESIA: General COMPLICATIONS: None OPERATIVE PROCEDURE: Patient placed under general anesthesia. Patient then placed in the left decubitus position. The patient's left ischial decubitus ulcer was first addressed. This was debrided sharply. This wound measured 6 x 10 cm. This debridement took place in an excisional manner using a scalpel. Dissection level down to and including subcutaneous tissues. No muscle was debrided at that location. The right decubitus ulcer was much more necrotic. This measured 7 x 12 cm. The wound was debrided laterally as it was tunneling with significant subcutaneous necrotic fat and muscle. This was debrided again in an excisional matter sharply with a scalpel. We were able to achieve healthy margins. The curet was also utilized at both locations. The wounds were irrigated with saline. The wound was then packed with lightly moistened Kerlix roll at both sites. Sterile outer dressings applied. DISPOSITION: Stable to recovery room
[2019-02-17 21:03] LABS: Glucose,Whole Blood 106 mg/dL (75-99)
[2019-02-17] MEDS: HYDROcodone/APAP 5-325MG 1 EACH TAB PO PRN (22:20)
[2019-02-17] MEDS: DOCUSATE 100 MG CAP PO SCH (22:21)
--- NOTE | 2019-02-17 22:22 | PN ---
PROGRESS NOTE DATE OF SERVICE: 02/17/2019 This 63-year-old gentleman with a past medical history of multiple sclerosis and multiple other complications was admitted with bilateral sacral decubitus ulcers, possibly stage IV. Dr. Willoughby is planning debridement. No chest pain. No palpitations. No fever. The patient is on IV antibiotics. PHYSICAL EXAMINATION: The patient is conscious, oriented x2. Pulse 88, blood pressure 117/58, respiration 18, temperature 98.7, pulse ox 91% on room air. HEENT: Conjunctivae normal. NECK: No jugular venous distention. CARDIOVASCULAR SYSTEM: S1, S2 muffled. RESPIRATORY SYSTEM: Breath sounds diminished at the bases. A few scattered rhonchi. ABDOMEN: Soft, non-tender. LEGS: No edema. No swelling. NERVOUS SYSTEM: Diffuse contractures, unchanged, and weakness, wasting. Sacral decubitus, stage IV, present. LABS: WBC 14.8, hemoglobin 11.2. ASSESSMENT: 1. Acute bilateral sacral decubitus ulcers, stage IV; pressure ulcers with possible sepsis, present on admission. 2. Change in mental status, metabolic encephalopathy, acute on chronic, multifactorial. 3. Increased white count. 4. Anemia, normocytic; possibly nutritional. 5. Multiple sclerosis with contractures and gait dysfunction and wasting. 6. Diabetes mellitus, type 2. 7. Possible urinary tract infection. 8. Dementia. 9. History of gastroesophageal reflux disease. 10.History of mitral valve prolapse. 11.History of degenerative joint disease. 12.History of neurogenic bladder, suprapubic catheter. 13.History of urinary tract infection with sepsis. 14.History of bowel incontinence. 15.History of muscle spasm. 16.History extended-spectrum beta-lactamase methicillin-resistant Staphylococcus aeruginosa. 17.History of depression. 18.Severe protein-calorie malnutrition with a body mass index of 19.4. 19.FULL CODE. RECOMMENDATIONS AND DISCUSSION: I recommend to continue current medications, continue with the monitoring, symptomatic treatment. Otherwise at this time I recommend continuing with the antibiotics. Final cultures are still pending at this time. Closely monitor with Infectious Disease and Surgery. Further recommendations to follow. MMODL / IJN: [id number] /
[2019-02-18] MEDS: PIPERACILLIN-TAZOBACTAM 3.375 GM in SODIUM CHLORIDE 0.9% 100 ML IVPB SCH ×3 (01:27→15:11)
[2019-02-18] MEDS: GABAPENTIN 100 MG CAP PO SCH ×3 (05:49→21:04)
[2019-02-18 07:36] LABS: Glucose,Whole Blood 96 mg/dL (75-99)
--- NOTE | 2019-02-18 07:48 | P.CONS ---
History of Present Illness - Reason for Consult Consult date: 02/17/19 - Chief Complaint Pressure ulcerations - History of Present Illness 63-year-old male who has a history of progressive unremitted MS who is a resident of an extended care facility presents with worsening of significant bilateral buttocks pressure ulcerations. Because of the severity he has been se en by surgery and has been taking the operating room for the surgical debridement of these large pressure ulcerations that were present on admission and that are stage IV. Consult is requested regarding antibiotic therapy. The patient is postoperative and has MS and is not very communicative at this point in time. He however denies much pain. Does not relate any change of the situation at the extended care facility. Review of Systems ROS unobtainable: due to mental status Past Medical History Past Medical History: Dementia, Diabetes Mellitus, Eye Disorder, GERD/Reflux, Mitral Valve Prolapse (MVP), Musculoskeletal Disorder, Neurologic Disorder, Renal Disease, Vascular Disorder Additional Past Medical History / Comment(s): Multiple sclerosis, atony of bladder-neurogenic bladder with suprapubic catheter, UTIs with sepsis, bowel incontinence, decubs in past, cellulitis bilateral lower legs in past, bilateral leg weakness - unable to stand, nephrolithiasis, bladder stones, back pain, DDD, muscle spasms, PVD, macular degeneration bilateral eyes with poor vision. Wound center pt-goes there on Wednesdays.pt-goes there on Wednesdays. History of Any Multi-Drug Resistant Organisms: ESBL, MRSA, Other MDRO Year Discovered:: 01/19/19 MRSA 02/26/17 ESBL MDRO Source:: MRSA HIP, ESBL URINE Past Surgical History: No Surgical Hx Reported Additional Past Surgical History / Comment(s): Supra pubic catheter placement and removal of bladder stones, I&D scrotal abcess, penile implant and removal with necrotic tissue removal, PICC line insertion and since removed, debridement lt trochanter, placement and subsequent removal of semimaleable penile prosthesis. Past Anesthesia/Blood Transfusion Reactions: No Reported Reaction Additional Past Anesthesia/Blood Transfusion Reaction / Comm: Pt states he has never received blood. Past Psychological History: Depression Additional Psychological History / Comment(s): Pt resides at [facility] Smoking Status: Former smoker Past Alcohol Use History: None Reported Additional Past Alcohol Use History / Comment(s): Pt states he started smoking in and quit in 2004 Past Drug Use History: None Reported - Past Family History Mother Family Medical History: No Reported History Additional Family Medical History / Comment(s): Pt believes his mother was healthy. She has . Father Family Medical History: Diabetes Mellitus Additional Family Medical History / Comment(s): Pt states he believes his dad in his 60's. Medications and Allergies Home Medications and Allergies Comment(s): Current Medications Acetaminophen (Tylenol Tab) 650 mg PO Q6HR PRN PRN Reason: Mild Pain or Fever > 100.5 Hydrocodone Bitart/Acetaminophen ([place] 5-325) 1 each PO Q6HR PRN PRN Reason: Pain Last Admin: 02/17/19 22:20 Dose: 1 each Documented by: Alprazolam (Xanax) 0.25 mg PO TID PRN PRN Reason: Anxiety Bisacodyl (Dulcolax) 10 mg RECTAL DAILY PRN PRN Reason: Constipation Docusate Sodium (Colace) 100 mg PO HS [facility] Last Admin: 02/17/19 22:21 Dose: 100 mg Documented by: Duloxetine HCl (Cymbalta) 20 mg PO DAILY [facility] Last Admin: 02/17/19 08:42 Dose: Not Given Documented by: Gabapentin (Neurontin) 200 mg PO TID@0500,1300,2100 [facility] Last Admin: 02/18/19 05:49 Dose: 200 mg Documented by: Hydromorphone HCl (Dilaudid) 0.5 mg IVP Q6HR PRN PRN Reason: Severe Pain Sodium Chloride (Saline 0.9%) 1,000 mls @ 50 mls/hr IV .Q20H [facility] Last Admin: 02/17/19 08:44 Dose: 50 mls/hr Documented by: Piperacillin Sod/Tazobactam (Sod 3.375 gm/ Sodium Chloride) 100 mls @ 25 mls/hr IVPB Q8HR [facility] Last Admin: 02/18/19 01:27 Dose: 25 mls/hr Documented by: Vancomycin HCl 1,250 mg/ (Sodium Chloride) 250 mls @ 125 mls/hr IVPB Q12H [facility] Last Admin: 02/17/19 22:22 Dose: 125 mls/hr Documented by: Lisinopril (Zestril) 2.5 mg PO QAM [facility] Last Admin: 02/17/19 08:40 Dose: Not Given Documented by: Magnesium Hydroxide (Milk Of Magnesia) 2,400 mg PO DAILY PRN PRN Reason: Constipation Memantine (Namenda) 10 mg PO BID [facility] Last Admin: 02/17/19 22:21 Dose: 10 mg Documented by: Metformin HCl (Glucophage) 250 mg PO AC-BID [facility] Last Admin: 02/17/19 17:29 Dose: Not Given Documented by: Naloxone HCl (Narcan) 0.2 mg IV Q2M PRN PRN Reason: Opioid Reversal Collagenase 250 Unit /Gm Ointment 30 Gm Tube 1 each TOPICAL DAILY [facility] Last Admin: 02/17/19 08:41 Dose: Not Given Documented by: Nystatin (Mycostatin Cream) 1 applic TOPICAL BID [facility] Last Admin: 02/17/19 22:22 Dose: 1 applic Documented by: Ondansetron HCl (Zofran) 4 mg IVP Q8HR PRN PRN Reason: Nausea And Vomiting Pantoprazole Sodium (Protonix) 40 mg PO AC-BRKFST [facility] Last Admin: 02/17/19 08:40 Dose: Not Given Documented by: Polyethylene Glycol (Miralax) 17 gm PO BID [facility] Last Admin: 02/17/19 22:28 Dose: Not Given Documented by: Tramadol HCl (Ultram) 50 mg PO Q6H PRN PRN Reason: Moderate Pain Home Medications Medication Instructions Recorded Confirmed Type Gabapentin [Neurontin] 200 mg PO TID@0500,1300,2100 08/30/14 02/16/19 History Nystatin 100,000Unit/gm Cream 1 applic TOPICAL BID 08/30/14 02/16/19 History [Mycostatin Cream] Polyethylene Glycol 3350 [Miralax] 17 gm PO BID 08/31/14 02/16/19 History Bisacodyl [Dulcolax] 10 mg RECTAL DAILY PRN 09/26/15 02/16/19 History Memantine [Namenda] 10 mg PO BID 09/26/15 02/16/19 History Amino Acids/Protein Hydrolys 30 ml PO DAILY 01/01/17 02/16/19 History [Pro-Stat Supplement] Lisinopril [Zestril] 2.5 mg PO QAM 01/01/17 02/16/19 History metFORMIN HCL [Glucophage Xr] 500 mg PO DAILY 01/05/17 02/16/19 History Acetaminophen Tab [Tylenol Tab] 650 mg PO TID 02/16/19 02/16/19 History Collagenase [Santyl] 1 applic TOPICAL DAILY 02/16/19 02/16/19 History DULoxetine HCL [Cymbalta] 20 mg PO DAILY 02/16/19 02/16/19 History Docusate [Colace] 100 mg PO HS 02/16/19 02/16/19 History Doxycycline Hyclate 100 mg PO Q12H 02/16/19 02/16/19 History Magnesium Hydroxide [Milk of 2,400 mg PO DAILY PRN 02/16/19 02/16/19 History Magnesia] Allergies Allergy/AdvReac Type Severity Reaction Status Date / Time adhesive Allergy Unknown Verified 02/16/19 11:55 chocolate flavor Allergy Unknown Verified 02/16/19 11:55 egg Allergy Unknown Verified 02/16/19 11:55 heparin (porcine) Allergy Unknown Verified 02/16/19 11:55 [heparin,porcine] Sulfa (Sulfonamide Allergy Unknown Verified 02/16/19 11:55 Antibiotics) Milk Containing Products AdvReac Nausea & Verified 02/16/19 11:55 [Dairy] Vomiting & Diarrhea Physical Exam Vitals: Vital Signs Temp Pulse Pulse Resp BP Pulse Ox 02/18/19 05:37 16 02/18/19 01:30 16 02/17/19 23:35 98.7 F 102 H 15 118/58 94 L 02/17/19 20:05 98.5 F 100 16 128/74 98 02/17/19 18:33 89 16 123/57 99 02/17/19 18:17 88 16 125/61 99 02/17/19 18:01 92 14 125/61 96 02/17/19 17:56 98.1 F 97 14 126/60 96 02/17/19 16:01 98.7 F 88 18 117/58 91 L 02/17/19 15:00 98 F 95 12 119/58 95 Intake and Output 02/17/19 02/18/19 02/18/19 22:59 06:59 14:59 Intake Total 750 Output Total 25 600 Balance 725 -600 Intake: IV 750 Output: Urine 600 Estimated Blood Loss 25 Other: Voiding Method Indwelling Catheter Indwelling Catheter 63-year-old male arousable sleepy HEENT: Anicteric conjunctiva are pink and moist nasal mucosa grossly intact without significant lesions, there is no thrush. Neck: The neck is supple without significant lymphadenopathy or thyromegaly. Lungs: Good bilateral air entry without significant crackles or wheezing. There is no significant bronchial sounds. There is no egophony or dullness. Heart: Regular rate and rhythm with an audible S1-S2, no S3 no S4. There is no significant murmur click or rub, PMI was nondisplaced. Abdomen: Positive bowel sounds soft and nontender without palpable masses or organomegaly. There was no guarding or rebound. Extremities: Have evidence of muscular wasting from his neurological disease. The patient is directed postoperative and is not rolled to evaluate the extensive pressure ulcerations the bilateral buttocks. However the surgical note is reviewed and there is evidence of these very large ulcerations that appear to be stage IV with large amounts of necrosis that has now been debrided. Neuro: Arousable but sleepy postoperative, he has functional quadriparesis from his MS Results CBC & Chem 7: 02/17/19 08:43 02/17/19 08:43 Labs: Abnormal Lab Results - Last 24 Hours (Table) 02/17/19 02/17/19 02/17/19 Range/Units 08:43 08:43 16:42 WBC 14.8 H (3.8-10.6) k/uL RBC 4.28 L (4.30-5.90) m/uL Hgb 11.2 L (13.0-17.5) gm/dL Hct 34.9 L (39.0-53.0) % Plt Count 541 H (150-450) k/uL Neutrophils # 12.1 H (1.3-7.7) k/uL Lymphocytes # 0.7 L (1.0-4.8) k/uL Monocytes # 1.2 H (0-1.0) k/uL Glucose 155 H (74-99) mg/dL POC Glucose (mg/dL) 108 H (75-99) mg/dL Calcium 8.3 L (8.4-10.2) mg/dL 02/17/19 Range/Units 20:51 WBC (3.8-10.6) k/uL RBC (4.30-5.90) m/uL Hgb (13.0-17.5) gm/dL Hct (39.0-53.0) % Plt Count (150-450) k/uL Neutrophils # (1.3-7.7) k/uL Lymphocytes # (1.0-4.8) k/uL Monocytes # (0-1.0) k/uL Glucose (74-99) mg/dL POC Glucose (mg/dL) 106 H (75-99) mg/dL Calcium (8.4-10.2) mg/dL Microbiology - Last 24 Hours (Table) 02/17/19 17:41 Gram Stain - Preliminary Buttock Wound Culture - Preliminary 02/17/19 06:15 Gram Stain - Preliminary Buttock Wound Culture - Preliminary 02/17/19 06:15 Gram Stain - Preliminary Buttock Wound Culture - Preliminary 02/17/19 17:41 Anaerobic Culture - Preliminary Buttock 02/16/19 13:35 Urine Culture - Final Urine,Voided 02/16/19 17:10 Blood Culture - Preliminary Blood No Growth after 24 hours Laboratory Results WBC 14.8 k/uL (3.8-10.6) H 02/17/19 08:43 RBC 4.28 m/uL (4.30-5.90) L 02/17/19 08:43 Hgb 11.2 gm/dL (13.0-17.5) L 02/17/19 08:43 Hct 34.9 % (39.0-53.0) L 02/17/19 08:43 MCV 81.6 fL (80.0-100.0) 02/17/19 08:43 MCH 26.1 pg (25.0-35.0) 02/17/19 08:43 MCHC 32.0 g/dL (31.0-37.0) 02/17/19 08:43 RDW 15.2 % (11.5-15.5) 02/17/19 08:43 Plt Count 541 k/uL (150-450) H 02/17/19 08:43 Neutrophils % 82 % 02/17/19 08:43 Lymphocytes % 5 % 02/17/19 08:43 Monocytes % 8 % 02/17/19 08:43 Eosinophils % 2 % 02/17/19 08:43 Basophils % 1 % 02/17/19 08:43 Neutrophils # 12.1 k/uL (1.3-7.7) H 02/17/19 08:43 Lymphocytes # 0.7 k/uL (1.0-4.8) L 02/17/19 08:43 Monocytes # 1.2 k/uL (0-1.0) H 02/17/19 08:43 Eosinophils # 0.3 k/uL (0-0.7) 02/17/19 08:43 Basophils # 0.2 k/uL (0-0.2) 02/17/19 08:43 Hypochromasia Slight 02/17/19 08:43 Sodium 139 mmol/L (137-145) 02/17/19 08:43 Potassium 4.1 mmol/L (3.5-5.1) 02/17/19 08:43 Chloride 106 mmol/L (98-107) 02/17/19 08:43 Carbon Dioxide 25 mmol/L (22-30) 02/17/19 08:43 Anion Gap 8 mmol/L 02/17/19 08:43 BUN 13 mg/dL (9-20) 02/17/19 08:43 Creatinine 0.79 mg/dL (0.66-1.25) 02/17/19 08:43 Est GFR (CKD-EPI)AfAm >90 (>60 ml/min/1.73 sqM) 02/17/19 08:43 Est GFR (CKD-EPI)NonAf >90 (>60 ml/min/1.73 sqM) 02/17/19 08:43 Glucose 155 mg/dL (74-99) H 02/17/19 08:43 POC Glucose (mg/dL) 96 mg/dL (75-99) 02/18/19 07:25 POC Glu [employer] TERRY Ruby Adam 02/18/19 07:25 Plasma Lactic Acid Rey 1.9 mmol/L (0.7-2.0) 02/16/19 13:47 Calcium 8.3 mg/dL (8.4-10.2) L 02/17/19 08:43 Total Bilirubin 0.3 mg/dL (0.2-1.3) 02/16/19 13:47 AST 14 U/L (17-59) L 02/16/19 13:47 ALT 15 U/L (21-72) L 02/16/19 13:47 Alkaline Phosphatase 117 U/L (38-126) 02/16/19 13:47 Total Protein 7.3 g/dL (6.3-8.2) 02/16/19 13:47 Albumin 2.8 g/dL (3.5-5.0) L 02/16/19 13:47 Urine Color Yellow 02/16/19 13:35 Urine Appearance Cloudy (Clear) 02/16/19 13:35 Urine pH 6.0 (5.0-8.0) 02/16/19 13:35 Ur Specific [place] 1.024 (1.001-1.035) 02/16/19 13:35 Urine Protein 1+ (Negative) H 02/16/19 13:35 Urine Glucose (UA) 4+ (Negative) H 02/16/19 13:35 Urine Ketones Negative (Negative) 02/16/19 13:35 Urine Blood Small (Negative) H 02/16/19 13:35 Urine Nitrite Negative (Negative) 02/16/19 13:35 Urine Bilirubin Negative (Negative) 02/16/19 13:35 Urine Urobilinogen <2.0 mg/dL (<2.0) 02/16/19 13:35 Ur Leukocyte Esterase Large (Negative) H 02/16/19 13:35 Urine RBC 18 /hpf (0-5) H 02/16/19 13:35 Urine WBC 78 /hpf (0-5) H 02/16/19 13:35 Ur Squamous Epith Cells <1 /hpf (0-4) 02/16/19 13:35 Urine Bacteria Occasional /hpf (None) H 02/16/19 13:35 Urine Mucus Rare /hpf (None) H 02/16/19 13:35 Urine Yeast (Budding) Many /hpf (None) H 02/16/19 13:35 Microbiology 02/17/19 17:41 Buttock Gram Stain - Preliminary 02/17/19 17:41 Buttock Wound Culture - Preliminary 02/17/19 06:15 Buttock Gram Stain - Preliminary 02/17/19 06:15 Buttock Wound Culture - Preliminary 02/17/19 06:15 Buttock Gram Stain - Preliminary 02/17/19 06:15 Buttock Wound Culture - Preliminary 02/17/19 17:41 Buttock Anaerobic Culture - Preliminary 02/16/19 13:35 Urine,Voided Urine Culture - Final 02/16/19 17:10 Blood Blood Culture - Preliminary No Growth after 24 hours Assessment and Plan (1) Stage 4 decubitus ulcer Narrative/Plan: 63-year-old male who has a long-standing history of chronic progressive multiple sclerosis who is functional quadriplegia presents to Hospital from the extended care facility for evaluation of the severe worsening to the bilateral legs pressure ulcerations. The stage IV lesions are present on admission and req uired surgical intervention with debridement that has just occurred. The patient is quite comfortable and does not have any significant complaints over is very sleepy after his surgery. Once the patient's status is been stabilized will be able to assist with wound care both at Hospital and hopefully at the extended care facility. We'll ask for an air mattress. His quadriplegia and wounds. Over the case management team to ensure that he has an air mattress at the care facility. It is unclear if he gets up and spends time in any kind of wheelchair if so would have to have appropriate questions however if this point in time he would need to be only an air mattress turning on a consistent basis to try to allow healing of these extensive ulcerations. His nutritional status will be assessed supplement as needed Cultures were further help direct antibiotic therapy currently he is on exte nsive therapy with vancomycin and Zosyn pending these results. Current Visit: Yes Status: Acute Code(s): L89.94 - PRESSURE ULCER OF UNSPECIFIED SITE, STAGE 4 SNOMED Code(s): 422209254 (2) Multiple sclerosis Current Visit: No Status: Acute Code(s): G35 - MULTIPLE SCLEROSIS SNOMED Code(s): 99656806
[2019-02-18 07:55] LABS: Basophils # (A) 0.1 k/uL (0-0.2); Basophils % (A) 1 %; Eosinophils # (A) 0.4 k/uL (0-0.7); Eosinophils % (A) 3 %; HCT 35.1 % (39.0-53.0); HGB 10.9 gm/dL (13.0-17.5); Hypochromasia Moderate; Lymphocytes # (A) 1.2 k/uL (1.0-4.8); Lymphocytes % (A) 11 %; MCH 25.8 pg (25.0-35.0); MCHC 31.1 g/dL (31.0-37.0); MCV 82.9 fL (80.0-100.0); Mean Platelet Volume 6.7; Monocytes % (A) 9 %; Neutrophils # (A) 8.1 k/uL (1.3-7.7); Neutrophils % (A) 73 %; Platelet Count 568 k/uL (150-450); RBC 4.24 m/uL (4.30-5.90); RDW 15.3 % (11.5-15.5); WBC 11.1 k/uL (3.8-10.6)
[2019-02-18 08:07] LABS: African American GFR (CKD) >90 (>60 ml/min/1.73 sqM); Anion Gap 9 mmol/L; Blood Urea Nitrogen 12 mg/dL (9-20); Calcium 8.2 mg/dL (8.4-10.2); Carbon Dioxide 24 mmol/L (22-30); Chloride 106 mmol/L (98-107); Glucose 95 mg/dL (74-99); Potassium 4.2 mmol/L (3.5-5.1); Sodium 139 mmol/L (137-145)
[2019-02-18] MEDS: PANTOPRAZOLE 40 MG TABLET PO SCH (09:18)
[2019-02-18] MEDS: metFORMIN 500 MG TAB PO SCH ×2 (09:18→17:28)
[2019-02-18] MEDS: LISINOPRIL 2.5 MG TAB PO SCH (09:18)
[2019-02-18] MEDS: HYDROcodone/APAP 5-325MG 1 EACH TAB PO PRN (09:18)
[2019-02-18] MEDS: MEMANTINE 10 MG TAB PO SCH ×2 (09:19→21:04)
[2019-02-18] MEDS: DULoxetine HCL 20 MG CAPSULE.DR PO SCH (09:19)
[2019-02-18] MEDS: POLYETHYLENE GLYCOL 3350 17 GM POWD.PACK PO SCH ×2 (09:20→21:09)
--- NOTE | 2019-02-18 11:17 | P.PN ---
Progress Note - Text Progress Note Date: 02/18/19 The patient resting comfortably in his bed. He is status post debridement of sacral decubitus wound. Patient will continue local wound care.
[2019-02-18] MEDS: COLLAGENASE 250 UNIT/GM OINTMENT 30 GM TUBE TOPICAL SCH (11:55)
[2019-02-18] MEDS: NYSTATIN 100,000UNIT/GM CREAM 30 GM TUBE TOPICAL SCH ×2 (11:58→21:53)
[2019-02-18] MEDS: VANCOMYCIN 1,250 MG in SODIUM CHLORIDE 0.9% 250 ML IVPB SCH ×2 (11:58→23:05)
[2019-02-18 12:07] LABS: Glucose,Whole Blood 150 mg/dL (75-99)
[2019-02-18 17:17] LABS: Glucose,Whole Blood 96 mg/dL (75-99)
--- NOTE | 2019-02-18 19:40 | PN ---
PROGRESS NOTE DATE OF SERVICE: 02/18/2019. This 63-year-old gentleman admitted with bilateral sacral decubitus ulcer is being closely monitored. Multiple organisms grown from the culture grew Pseudomonas and as well as gram-negative bacilli. No chest pain. No palpitations. No fever. The patient underwent debridement by surgery. PHYSICAL EXAM: Sensorium unchanged. Pulse 84. Blood pressure is 126/60, respirations 16, temperature 98.6, pulse ox 98% on room air. HEENT: Conjunctivae normal. NECK: No JVD. CARDIOVASCULAR: S1, S2 muffled. RESPIRATIONS: Breath sounds diminished in the bases. No rhonchi. No crackles. ABDOMEN is soft. Nontender. NERVOUS SYSTEM: Unchanged. Sacral decubitus present. LABS: WBC 11.2, hemoglobin 10.9. ASSESSMENT: 1. Acute bilateral sacral decubitus ulcer stage IV pressure ulcers with possible sepsis, present on admission, status post excisional debridement with Pseudomonas and gram negative bacilli. 2. Change in mental status, metabolic encephalopathy, acute on chronic. 3. Increased WBC. 4. Anemia, normocytic possibly nutritional. 5. Multiple sclerosis and contractures and gait dysfunction, wasting. 6. Diabetes mellitus type 2. 7. Possible urinary tract infection. 8. Dementia. 9. Gastroesophageal reflux disease. 10.History of mitral valve prolapse. 11.History of degenerative joint disease. 12.History of neurogenic bladder. 13.Suprapubic catheter. 14.History of urinary tract infection with sepsis. 15.History of bowel incontinence. 16.History muscles spasms. 17.History of ESBL and MRSA. 18.History of depression. 19.History of severe protein calorie malnutrition with body mass index 19.4. 20.FULL CODE. RECOMMENDATIONS AND DISCUSSION: Recommend to continue current medications, management and symptomatic treatment. Continue with broad-spectrum IV antibiotics. The patient is currently on a combination of Zosyn and vancomycin. We will continue to monitor. Follow closely with Infectious Disease. Prognosis guarded. Further recommendations to follow. MMODL / IJN: [id number] /
[2019-02-18] MEDS: DOCUSATE 100 MG CAP PO SCH (21:04)
[2019-02-18] MEDS: SODIUM CHLORIDE 0.9% 1,000 ML IV SCH (21:04)
[2019-02-18 21:13] LABS: Glucose,Whole Blood 113 mg/dL (75-99)
[2019-02-18] MEDS ORDERED: VANCOMYCIN TROUGH DUE 1 EACH MISC MISCELLANE ONE (22:00)
[2019-02-19] MEDS: PIPERACILLIN-TAZOBACTAM 3.375 GM in SODIUM CHLORIDE 0.9% 100 ML IVPB SCH ×3 (01:16→17:11)
[2019-02-19] MEDS: HYDROcodone/APAP 5-325MG 1 EACH TAB PO PRN ×2 (05:55→21:26)
[2019-02-19] MEDS: GABAPENTIN 100 MG CAP PO SCH ×3 (05:56→21:27)
[2019-02-19] MEDS: metFORMIN 500 MG TAB PO SCH ×2 (07:10→17:11)
[2019-02-19 07:30] LABS: Glucose,Whole Blood 92 mg/dL (75-99)
[2019-02-19] MEDS: LISINOPRIL 2.5 MG TAB PO SCH (07:56)
[2019-02-19] MEDS: MEMANTINE 10 MG TAB PO SCH ×2 (07:56→21:26)
[2019-02-19] MEDS: PANTOPRAZOLE 40 MG TABLET PO SCH (07:56)
[2019-02-19] MEDS: NYSTATIN 100,000UNIT/GM CREAM 30 GM TUBE TOPICAL SCH ×2 (07:58→21:27)
[2019-02-19] MEDS: DULoxetine HCL 20 MG CAPSULE.DR PO SCH (07:58)
[2019-02-19] MEDS: POLYETHYLENE GLYCOL 3350 17 GM POWD.PACK PO SCH ×2 (08:00→21:27)
[2019-02-19 08:38] LABS: African American GFR (CKD) >90 (>60 ml/min/1.73 sqM); Anion Gap 9 mmol/L; Blood Urea Nitrogen 11 mg/dL (9-20); Calcium 8.2 mg/dL (8.4-10.2); Carbon Dioxide 22 mmol/L (22-30); Chloride 107 mmol/L (98-107); Glucose 86 mg/dL (74-99); Sodium 138 mmol/L (137-145)
[2019-02-19 08:59] LABS: Basophils # (A) 0.1 k/uL (0-0.2); Basophils % (A) 2 %; Eosinophils # (A) 0.3 k/uL (0-0.7); Eosinophils % (A) 3 %; HCT 33.9 % (39.0-53.0); HGB 10.7 gm/dL (13.0-17.5); Hypochromasia Slight; Lymphocytes # (A) 0.9 k/uL (1.0-4.8); Lymphocytes % (A) 10 %; MCH 25.8 pg (25.0-35.0); MCHC 31.6 g/dL (31.0-37.0); MCV 81.4 fL (80.0-100.0); Mean Platelet Volume 6.7; Monocytes % (A) 11 %; Neutrophils # (A) 6.9 k/uL (1.3-7.7); Neutrophils % (A) 73 %; Platelet Count 558 k/uL (150-450); RBC 4.16 m/uL (4.30-5.90); RDW 15.5 % (11.5-15.5); WBC 9.4 k/uL (3.8-10.6)
[2019-02-19] MEDS: COLLAGENASE 250 UNIT/GM OINTMENT 30 GM TUBE TOPICAL SCH (10:03)
--- NOTE | 2019-02-19 10:49 | P.PN ---
Progress Note - Text Progress Note Date: 02/19/19 Patient status post debridement of sacral decubitus ulcer. Per nursing staff there is been no acute changes. The patient will continue to receive local wound care. He'll be discharged home per the medical service.
[2019-02-19] MEDS: VANCOMYCIN 1,000 MG in SODIUM CHLORIDE 0.9% 250 ML IVPB SCH (10:58)
[2019-02-19 12:52] LABS: Glucose,Whole Blood 106 mg/dL (75-99)
[2019-02-19 17:26] LABS: Glucose,Whole Blood 131 mg/dL (75-99)
[2019-02-19 20:12] LABS: Glucose,Whole Blood 92 mg/dL (75-99)
--- NOTE | 2019-02-19 21:21 | PN ---
PROGRESS NOTE DATE OF SERVICE: 02/19/2019. This 63-year-old gentleman who was admitted with significant acute bilateral decubitus ulcers, had debridement by Dr. Willoughby. The cultures are showing multiple organisms including gram-negative bacilli, Pseudomonas aeruginosa Providencia Stuartii and the E coli Proteus and as well as urine culture showed Katia glabrata, ESBL E coli was also grown from the culture. No chest pain. No palpitations. No fever. Infectious Disease following the patient closely. PAST MEDICAL HISTORY: Reviewed. REVIEW OF SYSTEMS: CARDIOVASCULAR: No angina. No palpitations. RESPIRATION: As mentioned earlier. GI as mentioned earlier. : No dysuria. CENTRAL NERVOUS SYSTEM: As mentioned earlier. CURRENT MEDICATIONS: Reviewed and include: 1. Tylenol 650 q.6h p.r.n. 2. [place] 5 mg. 3. Xanax 0.5 t.i.d. 4. Dulcolax. 5. Colace 100 mg q.h.s. 6. Cymbalta 20 mg daily. 7. Neurontin 200 mg t.i.d. 8. Dilaudid 0.5 mg q.h.s. 9. Zestril. 10.Milk of magnesia. 11.Namenda. 12.Glucophage. 13.Doses are reviewed. 14.Mycostatin. 15.Protonix. 16.Zosyn 3.5 IV q.8. 17.Ultram. 18.Vancomycin. PHYSICAL EXAM: Patient is alert, oriented x2. Pulse 88. Blood pressure 135/60, respirations 16, temperature 98.4, pulse ox 94 percent. HEENT: Conjunctivae normal. Oral mucosa moist. NECK is no jugular venous distention. No carotid bruit. No lymph node enlargement. CARDIOVASCULAR: S1, S2 muffled. RESPIRATIONS: Breath sounds diminished in the bases. A few scattered rhonchi and crackles. ABDOMEN: Soft, nontender. No mass palpable. LEGS: No edema. No swelling. NERVOUS SYSTEM: Unchanged. Multiple contractures also present. Wasting and weakness also present. Examination of the back status post significant ulcerations present. LABS: WBC 9.5, hemoglobin 10.7. Accu-Cheks noted. ASSESSMENT: 1. Acute bilateral sacral decubitus ulcer stage IV pressure ulcer with possible sepsis, present on admission. 2. Status post excisional debridement. 3. Culture showing multiple organisms including Pseudomonas aeruginosa, Providencia Proteus stuartii, ESBL E coli and Proteus. 4. Katia glabrata from urinary tract infection from urine. 5. Change in mental status, metabolic encephalopathy, acute on chronic. 6. Increased WBC. 7. Anemia, normocytic, possibly nutritional. 8. Multiple sclerosis with contractures. 9. Gait dysfunction with wasting. 10.Diabetes mellitus type 2. 11.Dementia. 12.Gastroesophageal reflux disease. 13.History of mitral valve prolapse. 14.History of degenerative joint disease. 15.History of neurogenic bladder. 16.History of suprapubic catheter. 17.Urinary tract infection with sepsis. 18.History of bowel incontinence. 19.History of muscle spasm. 20.History of ESBL and MRSA. 21.History of depression. 22.History of severe protein calorie malnutrition with body mass index 19.4. 23.FULL CODE. RECOMMENDATIONS AND DISCUSSION: Recommend to continue current medications, continue with monitoring, symptomatic treatment. Otherwise, at this time, I recommend continue with broad-spectrum IV antibiotics. Infectious Disease to coordinate. Please note, the patient has got multiple organisms grown from the culture including ESBL E coli. We will continue to monitor. Further recommendations to follow. Prognosis guarded. MMODL / IJN: [id number] /
[2019-02-19] MEDS: DOCUSATE 100 MG CAP PO SCH (21:26)
[2019-02-19] MEDS: SODIUM CHLORIDE 0.9% 1,000 ML IV SCH (21:38)
[2019-02-20] MEDS: SODIUM CHLORIDE 0.9% 1,000 ML IV SCH ×2 (00:12→21:48)
[2019-02-20] MEDS: PIPERACILLIN-TAZOBACTAM 3.375 GM in SODIUM CHLORIDE 0.9% 100 ML IVPB SCH ×4 (00:13→23:51)
[2019-02-20] MEDS: VANCOMYCIN 1,000 MG in SODIUM CHLORIDE 0.9% 250 ML IVPB SCH ×3 (00:15→23:50)
[2019-02-20] MEDS: GABAPENTIN 100 MG CAP PO SCH ×3 (05:18→21:47)
[2019-02-20] MEDS: HYDROcodone/APAP 5-325MG 1 EACH TAB PO PRN (05:18)
[2019-02-20 07:21] LABS: Glucose,Whole Blood 88 mg/dL (75-99)
[2019-02-20] MEDS: POLYETHYLENE GLYCOL 3350 17 GM POWD.PACK PO SCH ×2 (09:59→21:47)
[2019-02-20] MEDS: metFORMIN 500 MG TAB PO SCH ×2 (10:00→17:50)
[2019-02-20] MEDS: DULoxetine HCL 20 MG CAPSULE.DR PO SCH (10:00)
[2019-02-20] MEDS: NYSTATIN 100,000UNIT/GM CREAM 30 GM TUBE TOPICAL SCH ×2 (10:00→21:52)
[2019-02-20] MEDS: MEMANTINE 10 MG TAB PO SCH ×2 (10:00→21:47)
[2019-02-20] MEDS: LISINOPRIL 2.5 MG TAB PO SCH (10:00)
[2019-02-20] MEDS: PANTOPRAZOLE 40 MG TABLET PO SCH (10:00)
--- NOTE | 2019-02-20 11:18 | P.PN ---
Subjective Progress Note Date: 02/20/19 CHIEF COMPLAINT: bilateral sacral ulcers HISTORY OF PRESENT ILLNESS: Patient examined at the bedside this morning. He is s/p debridement of bilateral ischial decubitis ulcers. He denies pain to debridement sites. Denies abdominal pain. Denies nausea and vomiting. Wound culture results positive for ESBL E. coli, Pseudomonas aeruginosa, Proteus species and Providencia stuartii. PHYSICAL EXAM: VITAL SIGNS: Reviewed. GENERAL: Well-developed in no acute distress. HEENT: No sclera icterus. Extraocular movements grossly intact. Moist buccal mucosa. Head is atraumatic, normocephalic. ABDOMEN: Soft. Nondistended. Nontender. NEUROLOGIC: Alert and oriented. Cranial nerves II through XII grossly intact. SKIN: Bilateral ischial ulcers with packing and dressings noted. LABORATORY DATA: WBC 17.0. Hemoglobin 11.3. ASSESSMENT: 1. Bilateral stage IV ischial decubitus ulcer 2. History of multiple sclerosis, patient bedbound 3. History of ESBL and MRSA 4. Leukocytosis PLAN: 1. Diet as tolerated 2. Infectious disease on consult. Antibiotics per ID 3. Continue daily wound care 4. Discharge per medicine Nurse practitioner note has been reviewed by physician. Signing provider agrees with the documented findings, assessment, and plan of care. Objective - Vital Signs Vital signs: Vital Signs Temp 98.6 F 02/20/19 07:27 Pulse 88 02/20/19 07:27 Resp 18 02/20/19 07:27 BP 111/64 02/20/19 07:27 Pulse Ox 93 L 02/20/19 07:27 Intake & Output 02/19/19 02/20/19 02/20/19 18:59 06:59 18:59 Output Total 1850 Balance -1850 Output: Urine 1850 Other: Voiding Method Indwelling Catheter Indwelling Catheter # Voids 1 - Labs CBC & Chem 7: 02/19/19 07:19 02/19/19 07:19 Labs: Abnormal Lab Results - Last 24 Hours (Table) 02/19/19 02/19/19 Range/Units 12:40 17:24 POC Glucose (mg/dL) 106 H 131 H (75-99) mg/dL Microbiology - Last 24 Hours (Table) 02/17/19 17:41 Anaerobic Culture - Final Buttock 02/17/19 17:41 Gram Stain - Final Buttock Wound Culture - Final Escherichia coli 02/16/19 17:10 Blood Culture - Preliminary Blood No Growth after 72 hours 02/17/19 06:15 Gram Stain - Final Buttock Wound Culture - Final Pseudomonas aeruginosa Providencia stuartii Pseudomonas aeruginosa#2 Escherichia coli Proteus Species 02/17/19 06:15 Gram Stain - Final Buttock Wound Culture - Final Pseudomonas aeruginosa Providencia stuartii Pseudomonas aeruginosa#2 Escherichia coli Proteus Species
[2019-02-20 12:11] LABS: Glucose,Whole Blood 122 mg/dL (75-99)
[2019-02-20] MEDS: COLLAGENASE 250 UNIT/GM OINTMENT 30 GM TUBE TOPICAL SCH ×2 (15:39→16:44)
[2019-02-20 17:52] LABS: Glucose,Whole Blood 121 mg/dL (75-99)
[2019-02-20 20:26] LABS: Glucose,Whole Blood 105 mg/dL (75-99)
[2019-02-20] MEDS: DOCUSATE 100 MG CAP PO SCH (21:47)
--- NOTE | 2019-02-20 22:29 | P.PN ---
Subjective Progress Note Date: 02/20/19 63-year-old male who has a history of progressive unremitted MS who is a resident of an extended care facility presents with worsening of significant bilateral buttocks pressure ulcerations. Because of the severity he has been seen by surgery and has been taking the operating room for the surgical debrid ement of these large pressure ulcerations that were present on admission and that are stage IV. Consult is requested regarding antibiotic therapy. The patient is postoperative and has MS and is not very communicative at this point in time. He however denies much pain. Does not relate any change of the situation at the extended care facility. 02/20/2019 patient is to return to feel slightly better. He is not having significant fevers or chills weakness is improved he is a bit more communicat mónica. Objective - Vital Signs Vital signs: Vital Signs Temp 99.1 F 02/20/19 15:00 Pulse 88 02/20/19 16:00 Resp 18 02/20/19 16:00 BP 130/59 02/20/19 15:00 Pulse Ox 96 02/20/19 15:00 Intake & Output 02/20/19 02/20/19 02/21/19 06:59 18:59 06:59 Output Total 1850 Balance -1850 Weight 70.307 kg Output: Urine 1850 Other: Voiding Method Indwelling Catheter Indwelling Catheter # Voids 0 - Exam 63-year-old male arousable sleepy HEENT: Anicteric conjunctiva are pink and moist nasal mucosa grossly intact without significant lesions, there is no thrush. Neck: The neck is supple without significant lymphadenopathy or thyromegaly. Lungs: Good bilateral air entry without significant crackles or wheezing. There is no significant bronchial sounds. There is no egophony or dullness. Heart: Regular rate and rhythm with an audible S1-S2, no S3 no S4. There is no significant murmur click or rub, PMI was nondisplaced. Abdomen: Positive bowel sounds soft and nontender without palpable masses or organomegaly. There was no guarding or rebound. Extremities: Have evidence of muscular wasting from his neurological disease. The patient is directed postoperative and is not rolled to evaluate the extensive pressure ulcerations the bilateral buttocks. However the surgical note is reviewed and there is evidence of these very large ulcerations that appear to be stage IV with large amounts of necrosis that has now been debrided. Neuro: Arousable but sleepy postoperative, he has functional quadriparesis from his MS - Labs CBC & Chem 7: 02/19/19 07:19 02/19/19 07:19 Labs: Abnormal Lab Results - Last 24 Hours (Table) 02/20/19 02/20/19 02/20/19 Range/Units 12:04 17:47 20:25 POC Glucose (mg/dL) 122 H 121 H 105 H (75-99) mg/dL Microbiology - Last 24 Hours (Table) 02/16/19 17:10 Blood Culture - Preliminary Blood No Growth after 96 hours 02/17/19 17:41 Anaerobic Culture - Final Buttock 02/17/19 17:41 Gram Stain - Final Buttock Wound Culture - Final Escherichia coli Laboratory Results WBC 9.4 k/uL (3.8-10.6) 02/19/19 07:19 RBC 4.16 m/uL (4.30-5.90) L 02/19/19 07:19 Hgb 10.7 gm/dL (13.0-17.5) L 02/19/19 07:19 Hct 33.9 % (39.0-53.0) L 02/19/19 07:19 MCV 81.4 fL (80.0-100.0) 02/19/19 07:19 MCH 25.8 pg (25.0-35.0) 02/19/19 07:19 MCHC 31.6 g/dL (31.0-37.0) 02/19/19 07:19 RDW 15.5 % (11.5-15.5) 02/19/19 07:19 Plt Count 558 k/uL (150-450) H 02/19/19 07:19 Neutrophils % 73 % 02/19/19 07:19 Lymphocytes % 10 % 02/19/19 07:19 Monocytes % 11 % 02/19/19 07:19 Eosinophils % 3 % 02/19/19 07:19 Basophils % 2 % 02/19/19 07:19 Neutrophils # 6.9 k/uL (1.3-7.7) 02/19/19 07:19 Lymphocytes # 0.9 k/uL (1.0-4.8) L 02/19/19 07:19 Monocytes # 1.0 k/uL (0-1.0) 02/19/19 07:19 Eosinophils # 0.3 k/uL (0-0.7) 02/19/19 07:19 Basophils # 0.1 k/uL (0-0.2) 02/19/19 07:19 Hypochromasia Slight 02/19/19 07:19 ESR 99 mm/hr (0-15) H 02/18/19 07:08 Sodium 138 mmol/L (137-145) 02/19/19 07:19 Potassium 4.0 mmol/L (3.5-5.1) 02/19/19 07:19 Chloride 107 mmol/L (98-107) 02/19/19 07:19 Carbon Dioxide 22 mmol/L (22-30) 02/19/19 07:19 Anion Gap 9 mmol/L 02/19/19 07:19 BUN 11 mg/dL (9-20) 02/19/19 07:19 Creatinine 0.88 mg/dL (0.66-1.25) 02/19/19 07:19 Est GFR (CKD-EPI)AfAm >90 (>60 ml/min/1.73 sqM) 02/19/19 07:19 Est GFR (CKD-EPI)NonAf >90 (>60 ml/min/1.73 sqM) 02/19/19 07:19 Glucose 86 mg/dL (74-99) 02/19/19 07:19 POC Glucose (mg/dL) 105 mg/dL (75-99) H 02/20/19 20:25 POC Glu [employer] Yolanda West 02/20/19 20:25 Plasma Lactic Acid Rey 1.9 mmol/L (0.7-2.0) 02/16/19 13:47 Calcium 8.2 mg/dL (8.4-10.2) L 02/19/19 07:19 Total Bilirubin 0.3 mg/dL (0.2-1.3) 02/16/19 13:47 AST 14 U/L (17-59) L 02/16/19 13:47 ALT 15 U/L (21-72) L 02/16/19 13:47 Alkaline Phosphatase 117 U/L (38-126) 02/16/19 13:47 Total Protein 7.3 g/dL (6.3-8.2) 02/16/19 13:47 Albumin 2.8 g/dL (3.5-5.0) L 02/16/19 13:47 Prealbumin <5.0 mg/dL (18.0-42.0) L 02/18/19 07:08 Urine Color Yellow 02/16/19 13:35 Urine Appearance Cloudy (Clear) 02/16/19 13:35 Urine pH 6.0 (5.0-8.0) 02/16/19 13:35 Ur Specific [place] 1.024 (1.001-1.035) 02/16/19 13:35 Urine Protein 1+ (Negative) H 02/16/19 13:35 Urine Glucose (UA) 4+ (Negative) H 02/16/19 13:35 Urine Ketones Negative (Negative) 02/16/19 13:35 Urine Blood Small (Negative) H 02/16/19 13:35 Urine Nitrite Negative (Negative) 02/16/19 13:35 Urine Bilirubin Negative (Negative) 02/16/19 13:35 Urine Urobilinogen <2.0 mg/dL (<2.0) 02/16/19 13:35 Ur Leukocyte Esterase Large (Negative) H 02/16/19 13:35 Urine RBC 18 /hpf (0-5) H 02/16/19 13:35 Urine WBC 78 /hpf (0-5) H 02/16/19 13:35 Ur Squamous Epith Cells <1 /hpf (0-4) 02/16/19 13:35 Urine Bacteria Occasional /hpf (None) H 02/16/19 13:35 Urine Mucus Rare /hpf (None) H 02/16/19 13:35 Urine Yeast (Budding) Many /hpf (None) H 02/16/19 13:35 Vancomycin Trough 21.9 ug/mL 02/18/19 21:35 Microbiology 02/16/19 17:10 Blood Blood Culture - Preliminary No Growth after 96 hours 02/17/19 17:41 Buttock Anaerobic Culture - Final 02/17/19 17:41 Buttock Gram Stain - Final 02/17/19 17:41 Buttock Wound Culture - Final Escherichia coli 02/17/19 06:15 Buttock Gram Stain - Final 02/17/19 06:15 Buttock Wound Culture - Final Pseudomonas aeruginosa Providencia stuartii Pseudomonas aeruginosa#2 Escherichia coli Proteus Species 02/17/19 06:15 Buttock Gram Stain - Final 02/17/19 06:15 Buttock Wound Culture - Final Pseudomonas aeruginosa Providencia stuartii Pseudomonas aeruginosa#2 Escherichia coli Proteus Species 02/16/19 13:35 Urine,Voided Urine Culture - Final Katia glabrata Assessment and Plan (1) Stage 4 decubitus ulcer Narrative/Plan: 63-year-old male who has a long-standing history of chronic progressive multiple sclerosis who is functional quadriplegia presents to Hospital from the extended care facility for evaluation of the severe worsening to the bilateral legs pressure ulcerations. The stage IV lesions are present on admission and req uired surgical intervention with debridement that has just occurred. The patient is quite comfortable and does not have any significant complaints over is very sleepy after his surgery. Once the patient's status is been stabilized will be able to assist with wound care both at Hospital and hopefully at the extended care facility. We'll ask for an air mattress. His quadriplegia and wounds. Over the case management team to ensure that he has an air mattress at the care facility. It is unclear if he gets up and spends time in any kind of wheelchair if so would have to have appropriate questions however if this point in time he would need to be only an air mattress turning on a consistent basis to try to allow healing of these extensive ulcerations. His nutritional status will be assessed supplement as needed Cultures were further help direct antibiotic therapy currently he is on exte nsive therapy with vancomycin and Zosyn pending these results. 02/20/2019 the recent has had some improvement of his status, wound cultures coming back with a polymicrobial infection of the pathogens were all susceptible to Zosyn and this will be continued. Vancomycin is discontinued. Local wound care is as per the surgeon at this point in time but would be happy to help with wound care at the time of his transfer back to the rehab facility. As infection improves he may be a candidate for negative pressure therapy. We'll need to ensure he is an air mattress at the outside facility and appropriate air cushion if he spends time in a wheelchair for meals. Current Visit: Yes Status: Acute Code(s): L89.94 - PRESSURE ULCER OF UNSPECIFIED SITE, STAGE 4 SNOMED Code(s): 607263105 (2) Multiple sclerosis Current Visit: No Status: Acute Code(s): G35 - MULTIPLE SCLEROSIS SNOMED Code(s): 73614924
[2019-02-21] MEDS: GABAPENTIN 100 MG CAP PO SCH ×2 (05:06→12:18)
[2019-02-21 07:22] VITALS: BP 137/62; PULSE 82; RESP 14; TEMP 98.7
[2019-02-21 07:31] LABS: Glucose,Whole Blood 96 mg/dL (75-99)
[2019-02-21] MEDS: metFORMIN 500 MG TAB PO SCH (07:32)
[2019-02-21] MEDS: PIPERACILLIN-TAZOBACTAM 3.375 GM in SODIUM CHLORIDE 0.9% 100 ML IVPB SCH (07:32)
[2019-02-21] MEDS: PANTOPRAZOLE 40 MG TABLET PO SCH (07:32)
--- NOTE | 2019-02-21 08:08 | P.CON ---
Consult Note - . Consult date: 02/20/19 Assessment/Plan:: This is a 63-year-old pleasant gentleman who is known to the wound care center with nonhealing ulcerations to the right and left gluteus with pressure component. Left wrist stage IV and right gluteus stage IV. Patient was seen last week in the wound care center with worsening ulcerations and morphology and was sent to the emergency room for evaluation and septic workup. Patient underwent a surgical debridement and currently on IV antibiotics. Patient has significant history for progressive unremitted MS is a [facility]. At this time patient is resting comfortable without any pain or fever. He is alert and talkative. Review Of Systems: Constitutional: No fever, no chills, no night sweats. No weight change. No weakness, fatigue or lethargy. No daytime sleepiness. Integumentary: Reports wounds, no lesions. No rash or pruritus. No unusual bruising. No change in hair or nails. General Appearance: Alert, cooperative, no distress, appears stated age. Skin: Right gluteus nonhealing ulceration with pressure component stage IV, exudate and fibrin noted tunneling. Left gluteus nonhealing ulceration with pressure component stage IV significant exudate and fibrin noted undermining n oted. Neurologic: Alert oriented x3 cranial nerves II through XII intact, Assessment/plan: 1. Nonhealing ulceration with pressure component stage IV right gluteus. Apply Santyl, moistened saline gauze, dry gauze. Evaluate surface to ensure offloading. Turn every 2 hours as needed. Apply skin prep and barrier cream as needed. May consider wound VAC. Continue with outpatient wound care once discharged. 2. Nonhealing ulceration with pressure component stage IV left gluteus. As noted above. 3. Multiple sclerosis. Thank you for the consultation. Any questions please contact the wound care center. DNP note has been reviewed and discussed with Dr. Mazariegos and the impression and plan of care has been directed as dictated.
[2019-02-21] MEDS: POLYETHYLENE GLYCOL 3350 17 GM POWD.PACK PO SCH (08:14)
[2019-02-21] MEDS: MEMANTINE 10 MG TAB PO SCH (08:15)
[2019-02-21] MEDS: DULoxetine HCL 20 MG CAPSULE.DR PO SCH (08:15)
[2019-02-21] MEDS: LISINOPRIL 2.5 MG TAB PO SCH (08:15)
[2019-02-21] MEDS: NYSTATIN 100,000UNIT/GM CREAM 30 GM TUBE TOPICAL SCH (08:17)
[2019-02-21] MEDS: COLLAGENASE 250 UNIT/GM OINTMENT 30 GM TUBE TOPICAL SCH ×2 (08:17)
[2019-02-21] MEDS ORDERED: VANCOMYCIN TROUGH DUE 1 EACH MISC MISCELLANE ONE (11:00)
[2019-02-21 11:23] LABS: Glucose,Whole Blood 162 mg/dL (75-99)
--- NOTE | 2019-02-21 12:31 | P.PN ---
Subjective Progress Note Date: 02/21/19 CHIEF COMPLAINT: bilateral sacral ulcers HISTORY OF PRESENT ILLNESS: Patient examined at the bedside this morning. He is s/p debridement of bilateral ischial decubitis ulcers. He denies pain to debridement sites. Denies abdominal pain. Denies nausea and vomiting. Wound culture results positive for ESBL E. coli, Pseudomonas aeruginosa, Proteus species and Providencia stuartii. PHYSICAL EXAM: VITAL SIGNS: Reviewed. GENERAL: Well-developed in no acute distress. HEENT: No sclera icterus. Extraocular movements grossly intact. Moist buccal mucosa. Head is atraumatic, normocephalic. ABDOMEN: Soft. Nondistended. Nontender. NEUROLOGIC: Alert and oriented. Cranial nerves II through XII grossly intact. SKIN: Bilateral ischial ulcers with packing and dressings noted. ASSESSMENT: 1. Bilateral stage IV ischial decubitus ulcer 2. History of multiple sclerosis, patient bedbound 3. History of ESBL and MRSA 4. Leukocytosis PLAN: 1. Diet as tolerated 2. Infectious disease on consult. Antibiotics per ID 3. Continue daily wound care per infectious disease recommendations 4. Discharge per medicine 5. We will sign off. Please reconsult if needed. Nurse practitioner note has been reviewed by physician. Signing provider agrees with the documented findings, assessment, and plan of care. Objective - Vital Signs Vital signs: Vital Signs Temp 98.7 F 02/21/19 07:19 Pulse 82 02/21/19 07:19 Resp 14 02/21/19 07:19 BP 137/62 02/21/19 07:19 Pulse Ox 94 L 02/21/19 07:19 Intake & Output 02/20/19 02/21/19 02/21/19 18:59 06:59 18:59 Intake Total 3380 400 Output Total 3900 Balance -520 400 Weight 70.307 kg Intake: Intake, IV Titration 3100 Amount Piperacillin-Tazobactam 3 100 .375 gm In Sodium Chloride 0.9% 100 ml @ 25 mls/hr IVPB Q8HR [facility] Rx# :[id number] Sodium Chloride 0.9% 1, 750 000 ml @ 50 mls/hr IV . Q20H [facility] Rx#:[id number] Vancomycin 1,000 mg In 2250 Sodium Chloride 0.9% 250 ml @ 125 mls/hr IVPB Q12H [facility] Rx#:[id number] Oral 280 400 Output: Urine 3900 Other: Voiding Method Indwelling Catheter Indwelling Catheter Indwelling Catheter # Voids 0 - Labs CBC & Chem 7: 02/19/19 07:19 02/19/19 07:19 Labs: Abnormal Lab Results - Last 24 Hours (Table) 02/20/19 02/20/19 02/21/19 Range/Units 17:47 20:25 11:12 POC Glucose (mg/dL) 121 H 105 H 162 H (75-99) mg/dL Microbiology - Last 24 Hours (Table) 02/16/19 17:10 Blood Culture - Preliminary Blood No Growth after 96 hours
--- NOTE | 2019-02-21 14:18 | P.DS ---
Providers Date of admission: 02/16/19 14:48 Expected date of discharge: 02/21/19 Attending physician: Quinn Jeffers Consults: 02/16/19 14:08 Consult Physician Stat Consulting Provider: Brad Lawrence Consult Reason/Comments: Bilateral decubitus sacral ulcers Do you want consulting provider notified?: Already Contacted Consult Physician Stat Consulting Provider: Bong Peres Consult Reason/Comments: Bilateral decubitus sacral ulcers Do you want consulting provider notified?: Yes Primary care physician: David Andersen Hospital Course: Final diagnosis Acute bilateral sacral decubitus ulcer stage IV pressure ulcer with possible sepsis, present on admission Status post excisional debridement Culture sling multiple organisms including pseudomonas aeruginosa, providentia Proteus stuartii, ESBL E. coli Proteus Katia glabrata from urinary tract infection from urine Change in mental status, metabolic encephalopathy, acute on chronic Increased WBC Gait dysfunction with wasting Diabetes mellitus type 2 Dementia Gastroesophageal reflux disease History of mitral valve prolapse Anemia, normocytic, possibly nutritional Multiple sclerosis with contractures History of degenerative joint disease History of neurogenic bladder History of suprapubic catheter Urinary tract infection with sepsis History of bowel incontinence history of muscle spasm History of ESBL and MRSA History of depression History of severe protein calorie malnutrition with body mass index of 19.4 Full code Discharge disposition Patient is being discharged in a stable condition with guarded prognosis to [facility] in [place] and will continue IV antibiotic therapy in the form of Zosyn per infectious disease recommendations. Patient is to continue with wound care as instructed. Total time taken 35 minutes. History of present illness This is a 63-year-old male who was admitted with acute bilateral decubitus ulcers and underwent debridement with Dr. Willoughby and was being closely monitored. His disease was following. Patient received a PICC line and will be continuing IV antibiotic therapy in the form of Zosyn. Patient is to continue with wound care as well. Patient will follow-up with Dr. maher in the outpatient setting in 1-2 weeks. Patient denies any chest pain, shortness of breath, or palpitations at this time. Patient remains afebrile. Patient denies any nausea or vomiting and is been tolerating diet. Currently patient's condition is stable with much improvement. Patient is stable for discharge to [facility] with guarded prognosis. On exam vital signs are stable. Temp is 98.7F, pulse is 82, respirations are 14, blood pressure is 137/62, oxygen saturation is 94% on room air. Cardio S1 and S2 are muffled. Respiratory system shows diminished breath sounds at the bases with a few scattered rhonchi and crackles noted. Abdomen is soft, and nontender. Nervous system shows multiple contractures with moderate to severe weakness and is chronic in nature. Please refer to medication reconciliation sheet for a list of medications. Patient Condition at Discharge: Stable Plan - Discharge Summary Discharge Rx Participant: No New Discharge Prescriptions: New Piperacillin-Tazobactam [Zosyn] 3.375 gm IVPB Q6H #56 bag Continue Nystatin 100,000Unit/gm Cream [Mycostatin Cream] 1 applic TOPICAL BID Gabapentin [Neurontin] 200 mg PO TID@0500,1300,2100 Polyethylene Glycol 3350 [Miralax] 17 gm PO BID Bisacodyl [Dulcolax] 10 mg RECTAL DAILY PRN PRN Reason: Constipation Memantine [Namenda] 10 mg PO BID Amino Acids/Protein Hydrolys [Pro-Stat Supplement] 30 ml PO DAILY Lisinopril [Zestril] 2.5 mg PO QAM metFORMIN HCL [Glucophage Xr] 500 mg PO DAILY Acetaminophen Tab [Tylenol] 650 mg PO TID Collagenase [Santyl] 1 applic TOPICAL DAILY Docusate [Colace] 100 mg PO HS DULoxetine HCL [Cymbalta] 20 mg PO DAILY Magnesium Hydroxide [Milk of Magnesia] 2,400 mg PO DAILY PRN PRN Reason: Constipation Discontinued Doxycycline Hyclate 100 mg PO Q12H Discharge Medication List Gabapentin [Neurontin] 200 mg PO TID@0500,1300,2100 08/30/14 [History] Nystatin 100,000Unit/gm Cream [Mycostatin Cream] 1 applic TOPICAL BID 08/30/14 [History] Polyethylene Glycol 3350 [Miralax] 17 gm PO BID 08/31/14 [History] Bisacodyl [Dulcolax] 10 mg RECTAL DAILY PRN 09/26/15 [History] Memantine [Namenda] 10 mg PO BID 09/26/15 [History] Amino Acids/Protein Hydrolys [Pro-Stat Supplement] 30 ml PO DAILY 01/01/17 [History] Lisinopril [Zestril] 2.5 mg PO QAM 01/01/17 [History] metFORMIN HCL [Glucophage Xr] 500 mg PO DAILY 01/05/17 [History] Acetaminophen Tab [Tylenol] 650 mg PO TID 02/16/19 [History] Collagenase [Santyl] 1 applic TOPICAL DAILY 02/16/19 [History] DULoxetine HCL [Cymbalta] 20 mg PO DAILY 02/16/19 [History] Docusate [Colace] 100 mg PO HS 02/16/19 [History] Magnesium Hydroxide [Milk of Magnesia] 2,400 mg PO DAILY PRN 02/16/19 [History] Piperacillin-Tazobactam [Zosyn] 3.375 gm IVPB Q6H #56 bag 02/21/19 [Rx] Follow up Appointment(s)/Referral(s): Liam Willoughby MD [Medical Doctor] - As Needed Lakshmi Live, [NON-STAFF] - As Needed David Andersen MD [Primary Care Provider] - 1-2 days Activity/Diet/Wound Care/Special Instructions: Activity as tolerated Continue current diet Follow-up with specialists as scheduled and instructed We'll continue with IV antibiotic therapy per infectious disease recommendations Wound care: Cleanse the wound with normal saline and apply Santyl from edge to edge approximately a nickel in depth, saline moist gauze, dry gauze, secured using tape and use skin prep daily Discharge Disposition: TRANSFER TO SNF/ECF
[2019-02-21] MEDS: SODIUM CHLORIDE 0.9% 1,000 ML IV SCH (14:32)
--- NOTE | 2019-02-21 21:12 | P.PN ---
Subjective Progress Note Date: 02/21/19 63-year-old male who has a history of progressive unremitted MS who is a resident of an extended care facility presents with worsening of significant bilateral buttocks pressure ulcerations. Because of the severity he has been seen by surgery and has been taking the operating room for the surgical debrid ement of these large pressure ulcerations that were present on admission and that are stage IV. Consult is requested regarding antibiotic therapy. The patient is postoperative and has MS and is not very communicative at this point in time. He however denies much pain. Does not relate any change of the situation at the extended care facility. 02/20/2019 patient is to return to feel slightly better. He is not having significant fevers or chills weakness is improved he is a bit more communicat mónica. 02/21/2019 being readied for discharge to [facility] Objective - Vital Signs Vital signs: Vital Signs Temp 98.7 F 02/21/19 07:19 Pulse 82 02/21/19 07:19 Resp 14 02/21/19 07:19 BP 137/62 02/21/19 07:19 Pulse Ox 94 L 02/21/19 07:19 Intake & Output 02/21/19 02/21/19 02/22/19 06:59 18:59 06:59 Intake Total 3380 800 Output Total 3900 700 Balance -520 100 Intake: Intake, IV Titration 3100 Amount Piperacillin-Tazobactam 3 100 .375 gm In Sodium Chloride 0.9% 100 ml @ 25 mls/hr IVPB Q8HR [facility] Rx# :[id number] Sodium Chloride 0.9% 1, 750 000 ml @ 50 mls/hr IV . Q20H [facility] Rx#:[id number] Vancomycin 1,000 mg In 2250 Sodium Chloride 0.9% 250 ml @ 125 mls/hr IVPB Q12H [facility] Rx#:[id number] Oral 280 800 Output: Urine 3900 700 Other: Voiding Method Indwelling Catheter Indwelling Catheter - Exam 63-year-old male arousable sleepy HEENT: Anicteric conjunctiva are pink and moist nasal mucosa grossly intact without significant lesions, there is no thrush. Neck: The neck is supple without significant lymphadenopathy or thyromegaly. Lungs: Good bilateral air entry without significant crackles or wheezing. There is no significant bronchial sounds. There is no egophony or dullness. Heart: Regular rate and rhythm with an audible S1-S2, no S3 no S4. There is no significant murmur click or rub, PMI was nondisplaced. Abdomen: Positive bowel sounds soft and nontender without palpable masses or organomegaly. There was no guarding or rebound. Extremities: Have evidence of muscular wasting from his neurological disease. The patient is directed postoperative and is not rolled to evaluate the extensive pressure ulcerations the bilateral buttocks. However the surgical note is reviewed and there is evidence of these very large ulcerations that appear to be stage IV with large amounts of necrosis that has now been debrided. Neuro: Arousable , he has functional quadriparesis from his MS - Labs CBC & Chem 7: 02/19/19 07:19 02/19/19 07:19 Labs: Abnormal Lab Results - Last 24 Hours (Table) 02/21/19 Range/Units 11:12 POC Glucose (mg/dL) 162 H (75-99) mg/dL Microbiology - Last 24 Hours (Table) 02/16/19 17:10 Blood Culture - Preliminary Blood No Growth after 120 hours Laboratory Results WBC 9.4 k/uL (3.8-10.6) 02/19/19 07:19 RBC 4.16 m/uL (4.30-5.90) L 02/19/19 07:19 Hgb 10.7 gm/dL (13.0-17.5) L 02/19/19 07:19 Hct 33.9 % (39.0-53.0) L 02/19/19 07:19 MCV 81.4 fL (80.0-100.0) 02/19/19 07:19 MCH 25.8 pg (25.0-35.0) 02/19/19 07:19 MCHC 31.6 g/dL (31.0-37.0) 02/19/19 07:19 RDW 15.5 % (11.5-15.5) 02/19/19 07:19 Plt Count 558 k/uL (150-450) H 02/19/19 07:19 Neutrophils % 73 % 02/19/19 07:19 Lymphocytes % 10 % 02/19/19 07:19 Monocytes % 11 % 02/19/19 07:19 Eosinophils % 3 % 02/19/19 07:19 Basophils % 2 % 02/19/19 07:19 Neutrophils # 6.9 k/uL (1.3-7.7) 02/19/19 07:19 Lymphocytes # 0.9 k/uL (1.0-4.8) L 02/19/19 07:19 Monocytes # 1.0 k/uL (0-1.0) 02/19/19 07:19 Eosinophils # 0.3 k/uL (0-0.7) 02/19/19 07:19 Basophils # 0.1 k/uL (0-0.2) 02/19/19 07:19 Hypochromasia Slight 02/19/19 07:19 ESR 99 mm/hr (0-15) H 02/18/19 07:08 Sodium 138 mmol/L (137-145) 02/19/19 07:19 Potassium 4.0 mmol/L (3.5-5.1) 02/19/19 07:19 Chloride 107 mmol/L (98-107) 02/19/19 07:19 Carbon Dioxide 22 mmol/L (22-30) 02/19/19 07:19 Anion Gap 9 mmol/L 02/19/19 07:19 BUN 11 mg/dL (9-20) 02/19/19 07:19 Creatinine 0.88 mg/dL (0.66-1.25) 02/19/19 07:19 Est GFR (CKD-EPI)AfAm >90 (>60 ml/min/1.73 sqM) 02/19/19 07:19 Est GFR (CKD-EPI)NonAf >90 (>60 ml/min/1.73 sqM) 02/19/19 07:19 Glucose 86 mg/dL (74-99) 02/19/19 07:19 POC Glucose (mg/dL) 162 mg/dL (75-99) H 02/21/19 11:12 POC Glu 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 TERRY Breonna Rowe 02/21/19 11:12 Plasma Lactic Acid Rey 1.9 mmol/L (0.7-2.0) 02/16/19 13:47 Calcium 8.2 mg/dL (8.4-10.2) L 02/19/19 07:19 Total Bilirubin 0.3 mg/dL (0.2-1.3) 02/16/19 13:47 AST 14 U/L (17-59) L 02/16/19 13:47 ALT 15 U/L (21-72) L 02/16/19 13:47 Alkaline Phosphatase 117 U/L (38-126) 02/16/19 13:47 Total Protein 7.3 g/dL (6.3-8.2) 02/16/19 13:47 Albumin 2.8 g/dL (3.5-5.0) L 02/16/19 13:47 Prealbumin <5.0 mg/dL (18.0-42.0) L 02/18/19 07:08 Urine Color Yellow 02/16/19 13:35 Urine Appearance Cloudy (Clear) 02/16/19 13:35 Urine pH 6.0 (5.0-8.0) 02/16/19 13:35 Ur Specific Tina 1.024 (1.001-1.035) 02/16/19 13:35 Urine Protein 1+ (Negative) H 02/16/19 13:35 Urine Glucose (UA) 4+ (Negative) H 02/16/19 13:35 Urine Ketones Negative (Negative) 02/16/19 13:35 Urine Blood Small (Negative) H 02/16/19 13:35 Urine Nitrite Negative (Negative) 02/16/19 13:35 Urine Bilirubin Negative (Negative) 02/16/19 13:35 Urine Urobilinogen <2.0 mg/dL (<2.0) 02/16/19 13:35 Ur Leukocyte Esterase Large (Negative) H 02/16/19 13:35 Urine RBC 18 /hpf (0-5) H 02/16/19 13:35 Urine WBC 78 /hpf (0-5) H 02/16/19 13:35 Ur Squamous Epith Cells <1 /hpf (0-4) 02/16/19 13:35 Urine Bacteria Occasional /hpf (None) H 02/16/19 13:35 Urine Mucus Rare /hpf (None) H 02/16/19 13:35 Urine Yeast (Budding) Many /hpf (None) H 02/16/19 13:35 Vancomycin Trough 21.9 ug/mL 02/18/19 21:35 Microbiology 02/16/19 17:10 Blood Blood Culture - Preliminary No Growth after 120 hours 02/17/19 17:41 Buttock Anaerobic Culture - Final 02/17/19 17:41 Buttock Gram Stain - Final 02/17/19 17:41 Buttock Wound Culture - Final Escherichia coli 02/17/19 06:15 Buttock Gram Stain - Final 02/17/19 06:15 Buttock Wound Culture - Final Pseudomonas aeruginosa Providencia stuartii Pseudomonas aeruginosa#2 Escherichia coli Proteus Species 02/17/19 06:15 Buttock Gram Stain - Final 02/17/19 06:15 Buttock Wound Culture - Final Pseudomonas aeruginosa Providencia stuartii Pseudomonas aeruginosa#2 Escherichia coli Proteus Species 02/16/19 13:35 Urine,Voided Urine Culture - Final Katia glabrata Assessment and Plan (1) Stage 4 decubitus ulcer Narrative/Plan: 63-year-old male who has a long-standing history of chronic progressive multiple sclerosis who is functional quadriplegia presents to Hospital from the extended care facility for evaluation of the severe worsening to the bilateral legs pressure ulcerations. The stage IV lesions are present on admission and required surgical intervention with debridement that has just occurred. The patient is quite comfortable and does not have any significant complaints over is very sleepy after his surgery. Once the patient's status is been stabilized will be able to assist with wound care both at Hospital and hopefully at the extended care facility. We'll ask for an air mattress. His quadriplegia and wounds. Over the case management team to ensure that he has an air mattress at the care facility. It is unclear if he gets up and spends time in any kind of wheelchair if so would have to have appropriate questions however if this point in time he would need to be only an air mattress turning on a consistent basis to try to allow healing of these extensive ulcerations. His nutritional status will be assessed supplement as needed Cultures were further help direct antibiotic therapy currently he is on extensive therapy with vancomycin and Zosyn pending these results. 02/20/2019 the recent has had some improvement of his status, wound cultures coming back with a polymicrobial infection of the pathogens were all susceptible to Zosyn and this will be continued. Vancomycin is discontinued. Local wound care is as per the surgeon at this point in time but would be happy to help with wound care at the time of his transfer back to the rehab facility. As infection improves he may be a candidate for negative pressure therapy. We'll need to ensure he is an air mattress at the outside facility and appropriate air cushion if he spends time in a wheelchair for meals. 02/21/2019 doing better and being transferred to [facility] will follow with wound center and consider wound vac, will need Zosyn at the [facility] plan at least 2 weeks Status: Acute Code(s): L89.94 - PRESSURE ULCER OF UNSPECIFIED SITE, STAGE 4 SNOMED Code(s): 653101330 (2) Multiple sclerosis Status: Acute Code(s): G35 - MULTIPLE SCLEROSIS SNOMED Code(s): 17974042
== END 2019-02-21 15:54 | DRG 853 ==
LOC: EC 10:34 → 4SSUR 14:48
PROVIDERS: ADMIT Hospitalist; ATTEND Hospitalist
PROC: 0JB70ZZ Excision of Back Subcutaneous Tissue and Fascia, Open Approach (ICD-10-PCS; principal; 2019-02-17 09:40)
PROC: 0KBN0ZZ Excision of Right Hip Muscle, Open Approach (ICD-10-PCS; principal; 2019-02-17 09:40)
DX: A41.9 Sepsis, unspecified organism (principal); L89.154 Pressure ulcer of sacral region, stage 4; G93.41 Metabolic encephalopathy; E43 Unspecified severe protein-calorie malnutrition; R53.2 Functional quadriplegia; N39.0 Urinary tract infection, site not specified; Z68.1 Body mass index [BMI] 19.9 or less, adult; I34.1 Nonrheumatic mitral (valve) prolapse; E11.9 Type 2 diabetes mellitus without complications; F03.90 Unspecified dementia, unspecified severity, without behavioral disturbance, psychotic disturbance, mood disturbance, and anxiety; G35 Multiple sclerosis; D64.9 Anemia, unspecified; M19.90 Unspecified osteoarthritis, unspecified site; M62.838 Other muscle spasm; F32.9 Major depressive disorder, single episode, unspecified; N31.2 Flaccid neuropathic bladder, not elsewhere classified; K21.9 Gastro-esophageal reflux disease without esophagitis; Z91.011 Allergy to milk products; Z88.2 Allergy status to sulfonamides; Z88.8 Allergy status to other drugs, medicaments and biological substances; Z91.018 Allergy to other foods; Z91.048 Other nonmedicinal substance allergy status; Z98.890 Other specified postprocedural states; Z79.899 Other long term (current) drug therapy; Z79.84 Long term (current) use of oral hypoglycemic drugs; Z83.3 Family history of diabetes mellitus; Z86.19 Personal history of other infectious and parasitic diseases; Z87.440 Personal history of urinary (tract) infections; Z87.442 Personal history of urinary calculi; Z87.891 Personal history of nicotine dependence; Z86.14 Personal history of Methicillin resistant Staphylococcus aureus infection
CPT/HCPCS: 36415; 80048; 80053; 80202; 81001; 83605; 84134; 85025; 85652; 87040; 87070; 87075; 87077; 87086; 87186; 87205; 88304; 96361; 96365; 99284

== ENCOUNTER 2019-04-20 10:26 | Inpatient (IN) | payer MEDICARE ==
--- NOTE | 2019-04-20 11:09 | ED ---
Wound/Laceration HPI <Afshin Alfredo - Last Filed: 04/20/19 14:06> - General Source: patient Mode of arrival: wheelchair Limitations: no limitations <Suzette Bird - Last Filed: 04/20/19 15:48> - General Chief Complaint: Wound/Laceration Stated Complaint: Wounds, Fever Time Seen by Provider: 04/20/19 11:08 - History of Present Illness Initial Comments: 63-year-old male with history of HI S, sacral decubitus ulcer-history of previous hospitalizations for osteomyelitis, chronic arana placement with history of UTI presents emergency room for evaluation of ulcer, hx of fever. Patient states he was at the wound care center where they noticed he had worsening of his sacral decubitus ulcer, as well as history of feeling as though he had a fever at home. Patient denies any other complaints denies chest pain shortness of breath dysuria urgency frequency back pain neck pain and stiffness cough/congestion. Patient denies any focalizing complaints she states she was told to come to the emergency department. Patient afebrile upon arrival blood pressure stable. (Suzette Bird) - Related Data Home Medications Medication Instructions Recorded Confirmed Gabapentin [Neurontin] 200 mg PO TID@0500,1300,2100 08/30/14 04/20/19 Nystatin 100,000Unit/gm Cream 1 applic TOPICAL BID PRN 08/30/14 04/20/19 [Mycostatin Cream] Polyethylene Glycol 3350 [Miralax] 17 gm PO DAILY@0900 08/31/14 04/20/19 Memantine [Namenda] 10 mg PO BID@0900,1700 09/26/15 04/20/19 Amino Acids/Protein Hydrolys 30 ml PO DAILY@0901/01/17 04/20/19 [Pro-Stat Supplement] Lisinopril [Zestril] 2.5 mg PO DAILY@0500 01/01/17 04/20/19 metFORMIN HCL [Glucophage Xr] 500 mg PO DAILY@0900 01/05/17 04/20/19 Acetaminophen Tab [Tylenol] 650 mg PO TID@0900,1300,2100 02/16/19 04/20/19 DULoxetine HCL [Cymbalta] 20 mg PO DAILY@0900 02/16/19 04/20/19 Magnesium Hydroxide [Milk of 2,400 mg PO DAILY PRN 02/16/19 04/20/19 Magnesia] Bisacodyl [Dulcolax] 10 mg RECTAL DAILY PRN 04/20/19 04/20/19 Allergies Allergy/AdvReac Type Severity Reaction Status Date / Time adhesive Allergy Unknown Verified 04/20/19 13:48 chocolate flavor Allergy Unknown Verified 04/20/19 13:48 egg Allergy Unknown Verified 04/20/19 13:48 heparin (porcine) Allergy Unknown Verified 04/20/19 13:48 [heparin,porcine] Sulfa (Sulfonamide Allergy Unknown Verified 04/20/19 13:48 Antibiotics) Milk Containing Products AdvReac Nausea & Verified 04/20/19 13:48 [Dairy] Vomiting & Diarrhea Review of Systems ROS Other: All systems not noted in ROS Statement are negative. <Afshin Alfredo - Last Filed: 04/20/19 14:06> ROS Other: All systems not noted in ROS Statement are negative. <Suzette Bird - Last Filed: 04/20/19 15:48> ROS Statement: Those systems with pertinent positive or pertinent negative responses have been documented in the HPI. Past Medical History Past Medical History: Dementia, Diabetes Mellitus, Eye Disorder, GERD/Reflux, Mitral Valve Prolapse (MVP), Musculoskeletal Disorder, Neurologic Disorder, Renal Disease, Vascular Disorder Additional Past Medical History / Comment(s): Multiple sclerosis, atony of bladder-neurogenic bladder with suprapubic catheter, UTIs with sepsis, bowel incontinence, decubs in past, cellulitis bilateral lower legs in past, bilateral leg weakness - unable to stand, nephrolithiasis, bladder stones, back pain, DDD, muscle spasms, PVD, macular degeneration bilateral eyes with poor vision. Wound center pt-goes there on Wednesdays.pt-goes there on Wednesdays. History of Any Multi-Drug Resistant Organisms: ESBL, MRSA, Other MDRO Date of last positivie culture/infection: 01/19/19 MRSA; 04/06/19 ESBL-E.coli MDRO Source:: MRSA HIP, ESBL Right Hip Past Surgical History: No Surgical Hx Reported Additional Past Surgical History / Comment(s): Supra pubic catheter placement and removal of bladder stones, I&D scrotal abcess, penile implant and removal with necrotic tissue removal, PICC line insertion and since removed, debridement lt trochanter, placement and subsequent removal of semimaleable penile prosthesis. Past Anesthesia/Blood Transfusion Reactions: No Reported Reaction Additional Past Anesthesia/Blood Transfusion Reaction / Comment(s): Pt states he has never received blood. Past Psychological History: Depression Smoking Status: Former smoker Past Alcohol Use History: None Reported Past Drug Use History: None Reported - Past Family History Mother Family Medical History: No Reported History Additional Family Medical History / Comment(s): Pt believes his mother was healthy. She has . Father Family Medical History: Diabetes Mellitus Additional Family Medical History / Comment(s): Pt states he believes his dad in his 60's. <Suzette Bird - Last Filed: 04/20/19 15:48> General Exam Limitations: no limitations <Suzette Bird - Last Filed: 04/20/19 15:48> - General Exam Comments Initial Comments: General: The patient is awake and alert, in no distress Eye: +3 mm pupils are equal, round and reactive to light, APD noted, extra- ocular movements are intact. Horizontal nystagmus. There is normal conjunctiva bilaterally. No signs of icterus. Ears, nose, mouth and throat: There are moist mucous membranes and no oral lesions. Neck: The neck is supple, there is no tenderness or JVD. Cardiovascular: There is a regular rate and rhythm. No murmur, rub or gallop is appreciated. Respiratory: Lungs are clear to auscultation, respirations are non-labored, eleuterio ath sounds are equal. No wheezes, stridor, rales, or rhonchi. Gastrointestinal: Soft, non-distended, non-tender abdomen without masses or organomegaly noted. There is no rebound or guarding present. No CVA tenderness. Bowel sounds are unremarkable. There is cloudy urine in arana catheter-no obvious blood. Musculoskeletal: Normal ROM, no tenderness. Strength 5/5. Sensation intact. Radial pulses equal bilaterally 2+. Neurological: A&O x 3. Atrophy of LE b/l. Coordination appears grossly intact. Speech is normal. Skin: Skin is warm and dry and no rashes. 10 cm x 6 cm, stage IV sacral de cubitus ulcer, mild odor. Nose and surrounding redness. Some purulent drainage on packing Psychiatric: Cooperative, appropriate mood & affect (Suzette Bird) Course <Afshin Alfredo - Last Filed: 04/20/19 14:06> Vital Signs 04/20/19 04/20/19 04/20/19 10:38 13:52 14:45 Temperature 97.9 F 98.1 F 98.5 F Pulse Rate 85 79 Respiratory 20 18 Rate Blood Pressure 125/78 121/70 O2 Sat by Pulse 98 98 Oximetry - Reevaluation(s) Reevaluation #1: 04/20/19 14:06 PA supervision: I proceeded evaluation the patient was initially sent to the emergency department from wound clinic by Dr. Flowers. Patient does have evidence of decubitus ulceration and does require debridement. Patient be admitted the case is discussed with Dr. Gandara. I do agree with the assessment and plan. She does demonstrate decubitus ulceration with tracking. (Afshin Alfredo) Medical Decision Making - Lab Data Result diagrams: 04/20/19 12:26 04/20/19 12:26 <Afshin Alfredo - Last Filed: 04/20/19 14:06> - Lab Data Result diagrams: 04/20/19 12:26 04/20/19 12:26 <Suzette Bird - Last Filed: 04/20/19 15:48> - Medical Decision Making 63-year-old male presenting to emergency department for evaluation of history of fever, worsening sacral decubitus ulcer. Patient has leukocytosis, history of fever however afebrile emergency department without medications. Elevated lactic acid. Pt the urine appearance concerning for urinary tract infection and supportive evidence for urinary analysis. Patient was given Zosyn, and ceftriaxone. Blood cultures pending. Concern for sepsis. Troponin negative. Pt platelets elevated. Given IV fluids. Patient remains hematologically stable within the emergency department by band saw operator cake cutting attending provider. Will be admitted for sepsis, most likely due to urinary tract infection however differential diagnosis includes infection of decubitus ulcer. Patient case was discussed, labs reviewed and patient evaluated by my attending provider Dr. Alfredo who is agreeable care plan and admission at this time we spoke with Dr. Gandara who will enter preferred consultations (Suzette Bird) - Lab Data Lab Results 04/20/19 04/20/19 04/20/19 Range/Units 12:26 12:26 12:26 WBC 15.8 H (3.8-10.6) k/uL RBC 4.80 (4.30-5.90) m/uL Hgb 11.7 L (13.0-17.5) gm/dL Hct 40.0 (39.0-53.0) % MCV 83.5 (80.0-100.0) fL MCH 24.3 L (25.0-35.0) pg MCHC 29.2 L (31.0-37.0) g/dL RDW 15.1 (11.5-15.5) % Plt Count 1075 H* (150-450) k/uL Neutrophils % 78 % Lymphocytes % 9 % Monocytes % 6 % Eosinophils % 3 % Basophils % 1 % Neutrophils # 12.3 H (1.3-7.7) k/uL Lymphocytes # 1.5 (1.0-4.8) k/uL Monocytes # 1.0 (0-1.0) k/uL Eosinophils # 0.4 (0-0.7) k/uL Basophils # 0.1 (0-0.2) k/uL Manual Slide Review Performed Hypochromasia Marked Sodium 140 (137-145) mmol/L Potassium 3.9 (3.5-5.1) mmol/L Chloride 107 (98-107) mmol/L Carbon Dioxide 25 (22-30) mmol/L Anion Gap 8 mmol/L BUN 13 (9-20) mg/dL Creatinine 0.80 (0.66-1.25) mg/dL Est GFR (CKD-EPI)AfAm >90 (>60 ml/min/1.73 sqM) Est GFR (CKD-EPI)NonAf >90 (>60 ml/min/1.73 sqM) Glucose 101 H (74-99) mg/dL Plasma Lactic Acid Rey 2.2 H* (0.7-2.0) mmol/L Calcium 9.1 (8.4-10.2) mg/dL Total Bilirubin 0.1 L (0.2-1.3) mg/dL AST 27 (17-59) U/L ALT 15 L (21-72) U/L Alkaline Phosphatase 143 H (38-126) U/L Troponin I (0.000-0.034) ng/mL Total Protein 8.4 H (6.3-8.2) g/dL Albumin 3.0 L (3.5-5.0) g/dL 04/20/19 Range/Units 12:26 WBC (3.8-10.6) k/uL RBC (4.30-5.90) m/uL Hgb (13.0-17.5) gm/dL Hct (39.0-53.0) % MCV (80.0-100.0) fL MCH (25.0-35.0) pg MCHC (31.0-37.0) g/dL RDW (11.5-15.5) % Plt Count (150-450) k/uL Neutrophils % % Lymphocytes % % Monocytes % % Eosinophils % % Basophils % % Neutrophils # (1.3-7.7) k/uL Lymphocytes # (1.0-4.8) k/uL Monocytes # (0-1.0) k/uL Eosinophils # (0-0.7) k/uL Basophils # (0-0.2) k/uL Manual Slide Review Hypochromasia Sodium (137-145) mmol/L Potassium (3.5-5.1) mmol/L Chloride (98-107) mmol/L Carbon Dioxide (22-30) mmol/L Anion Gap mmol/L BUN (9-20) mg/dL Creatinine (0.66-1.25) mg/dL Est GFR (CKD-EPI)AfAm (>60 ml/min/1.73 sqM) Est GFR (CKD-EPI)NonAf (>60 ml/min/1.73 sqM) Glucose (74-99) mg/dL Plasma Lactic Acid Rey (0.7-2.0) mmol/L Calcium (8.4-10.2) mg/dL Total Bilirubin (0.2-1.3) mg/dL AST (17-59) U/L ALT (21-72) U/L Alkaline Phosphatase (38-126) U/L Troponin I <0.012 (0.000-0.034) ng/mL Total Protein (6.3-8.2) g/dL Albumin (3.5-5.0) g/dL Disposition <Afshin Alfredo - Last Filed: 04/20/19 14:06> Is patient prescribed a controlled substance at d/c from ED?: No Time of Disposition: 13:51 Decision to Admit Reason: Admit from EC Decision Date: 04/20/19 Decision Time: 13:51 <Suzette Bird - Last Filed: 04/20/19 15:48> Clinical Impression: Fever, Sacral decubitus ulcer, stage IV, Leukocytosis, Elevated lactic acid level, Elevated platelet count, Hx of multiple sclerosis Disposition: ADMITTED IP TO THIS [facility] Condition: Serious
[2019-04-20] MEDS ORDERED: SODIUM CHLORIDE 0.9% 500 ML 500 ML IV ONE ×2 (12:16→13:27)
[2019-04-20] MEDS ORDERED: SODIUM CHLORIDE 0.9% 1,000 ML IV ONE (12:16)
[2019-04-20] MEDS ORDERED: PIPERACILLIN-TAZOBACTAM 3.375 GM in SODIUM CHLORIDE 0.9% 100 ML IVPB STA (12:16)
[2019-04-20] MEDS: SODIUM CHLORIDE 0.9% 1,000 ML IV SCH ×2 (12:31→20:43)
[2019-04-20 12:53] LABS: ALT 15 U/L (21-72); AST 27 U/L (17-59); African American GFR (CKD) >90 (>60 ml/min/1.73 sqM); Alkaline Phosphatase 143 U/L (38-126); Anion Gap 8 mmol/L; Blood Urea Nitrogen 13 mg/dL (9-20); Calcium 9.1 mg/dL (8.4-10.2); Carbon Dioxide 25 mmol/L (22-30); Chloride 107 mmol/L (98-107); Glucose 101 mg/dL (74-99); Potassium 3.9 mmol/L (3.5-5.1); Sodium 140 mmol/L (137-145); Total Bilirubin 0.1 mg/dL (0.2-1.3); Total Protein 8.4 g/dL (6.3-8.2)
[2019-04-20 13:15] LABS: Basophils # (A) 0.1 k/uL (0-0.2); Basophils % (A) 1 %; Eosinophils # (A) 0.4 k/uL (0-0.7); Eosinophils % (A) 3 %; HGB 11.7 gm/dL (13.0-17.5); Hypochromasia Marked; Lymphocytes # (A) 1.5 k/uL (1.0-4.8); Lymphocytes % (A) 9 %; MCH 24.3 pg (25.0-35.0); MCHC 29.2 g/dL (31.0-37.0); MCV 83.5 fL (80.0-100.0); Mean Platelet Volume 5.5; Monocytes % (A) 6 %; Neutrophils # (A) 12.3 k/uL (1.3-7.7); Neutrophils % (A) 78 %; RDW 15.1 % (11.5-15.5); WBC 15.8 k/uL (3.8-10.6)
[2019-04-20 13:39] LABS: Platelet Count 1075 k/uL (150-450)
[2019-04-20] MEDS ORDERED: IBUPROFEN 400 MG TAB PO PRN (13:45)
[2019-04-20] MEDS ORDERED: NALOXONE 0.4 MG/ML 1 ML VIAL IV PRN (13:45)
--- NOTE | 2019-04-20 14:05 | XR ---
EXAMINATION TYPE: XR chest 2V DATE OF EXAM: 04/20/2019 COMPARISON: Chest x-ray October 01, 2015 HISTORY: Fever. TECHNIQUE: Frontal and lateral views of the chest are obtained. FINDINGS: There is chronic changes without suspicious narrowing focal air space opacity, pleural eff usion, or pneumothorax seen. The cardiac silhouette size is enlarged. The osseous structures remai n demineralized. Underlying scoliotic curvature. Right-sided peripheral IV or PICC line partially tayler ged. IMPRESSION: Chronic changes and cardiomegaly without acute pulmonary process.
[2019-04-20 14:55] LABS: Appearance,Urine Cloudy (Clear); Bacteria,Urine Many /hpf; Bilirubin,Urine Negative (Negative); Blood,Urine Trace (Negative); Budding Yeast,Urine Moderate /hpf; Color,Urine Yellow; Glucose,Urine (UA) Negative (Negative); Ketones,Urine Negative (Negative); Leukocyte Esterase,Urine Large (Negative); Mucus,Urine Occasional /hpf; Nitrite,Urine Positive (Negative); Protein,Urine 1+ (Negative); RBC,Urine 30 /hpf (0-5); Specific Gravity,Urine 1.018 (1.001-1.035); Urobilinogen,Urine <2.0 mg/dL (<2.0); WBC,Urine >182 /hpf (0-5)
[2019-04-20 16:09] VITALS: BMI 23.7
--- NOTE | 2019-04-20 16:09 | P.GSCN ---
History of Present Illness Consult date: 04/20/19 Reason for Consult: Decubitus ulcer History of present illness: 63-year-old male known to our service. Patient was last seen 2 months ago. Ángel woodward is bedbound and has a history of advanced multiple sclerosis. The patient is a poor historian and is confused. Patient has been followed in the wound care center. Patient underwent debridement bilateral ischial decubitus ulcers on 02/17. The left sided decubitus ulcer was smaller and book cleaner than the right side at the time of his debridement last visit. He continues to follow with the wound care center reportedly. He presents to the ER today with fevers. Apparently the wound care center was concerned about the worsening decubitus ulcer appearance. Patient is relatively asymptomatic. Has an indwelling suprapubic urinary catheter. Denies pain. White blood cell count 15.8. Review of Systems Patient confused unreliable review of systems at this time Past Medical History Past Medical History: Dementia, Diabetes Mellitus, Eye Disorder, GERD/Reflux, Mitral Valve Prolapse (MVP), Musculoskeletal Disorder, Neurologic Disorder, Renal Disease, Vascular Disorder Additional Past Medical History / Comment(s): Multiple sclerosis with contractions, susie lift to wheelchair, current bilateral buttock decubitus ulcers, spouse believes pt has sores around toes, decubitus ulcers with sepsis, osteomylitis, bladder atony/neurogenic bladder with urostomy, UTIs, UTI with sepsis, bladder and kidney stones, bowel incontinence, past cellulitis bilateral lower legs, NIDDM type II, macular degeneration bilateral eyes, PVD. History of Any Multi-Drug Resistant Organisms: ESBL, MRSA, Other MDRO Year Discovered:: 01/19/19 MRSA; 04/06/19 ESBL-E.coli MDRO Source:: MRSA HIP, ESBL Right Hip Past Surgical History: No Surgical Hx Reported Additional Past Surgical History / Comment(s): Supra pubic catheter placement and removal of bladder stones, I&D scrotal abcess, penile implant and removal with necrotic tissue removal, PICC line insertions and has current power picc to L upper arm, debridement lt trochanter, debridements sacral ulcers. Past Anesthesia/Blood Transfusion Reactions: No Reported Reaction Additional Past Anesthesia/Blood Transfusion Reaction / Comm: Pt has never received blood. Past Psychological History: Depression Additional Psychological History / Comment(s): Pt resides at [facility]. He is a susie lift to wheelchair. He is on a mechanical soft diet and uses special utensils to feed himself. He has a urostomy which was changed on 04/10/19 Smoking Status: Former smoker Past Alcohol Use History: None Reported Additional Past Alcohol Use History / Comment(s): Pt started smoking as a teen and quit in the 1980s. Past Drug Use History: None Reported - Past Family History Mother Family Medical History: Eye Disorder Additional Family Medical History / Comment(s): Mother had a neurological condition that affected her eyesight. She at the age of 85 yrs. Father Family Medical History: Diabetes Mellitus Additional Family Medical History / Comment(s): Father was a brittle diabetic and in his 50s. Medications and Allergies Home Medications Medication Instructions Recorded Confirmed Type Gabapentin [Neurontin] 200 mg PO TID@0500,1300,2100 08/30/14 04/20/19 History Nystatin 100,000Unit/gm Cream 1 applic TOPICAL BID PRN 08/30/14 04/20/19 History [Mycostatin Cream] Polyethylene Glycol 3350 [Miralax] 17 gm PO DAILY@0900 08/31/14 04/20/19 History Memantine [Namenda] 10 mg PO BID@0900,1700 09/26/15 04/20/19 History Amino Acids/Protein Hydrolys 30 ml PO DAILY@0900 01/01/17 04/20/19 History [Pro-Stat Supplement] Lisinopril [Zestril] 2.5 mg PO DAILY@0500 01/01/17 04/20/19 History metFORMIN HCL [Glucophage Xr] 500 mg PO DAILY@0900 01/05/17 04/20/19 History Acetaminophen Tab [Tylenol] 650 mg PO TID@0900,1300,2100 02/16/19 04/20/19 History DULoxetine HCL [Cymbalta] 20 mg PO DAILY@0900 02/16/19 04/20/19 History Magnesium Hydroxide [Milk of 2,400 mg PO DAILY PRN 02/16/19 04/20/19 History Magnesia] Bisacodyl [Dulcolax] 10 mg RECTAL DAILY PRN 04/20/19 04/20/19 History Allergies Allergy/AdvReac Type Severity Reaction Status Date / Time adhesive Allergy Unknown Verified 04/20/19 13:48 chocolate flavor Allergy Unknown Verified 04/20/19 13:48 egg Allergy Unknown Verified 04/20/19 13:48 heparin (porcine) Allergy Unknown Verified 04/20/19 13:48 [heparin,porcine] Sulfa (Sulfonamide Allergy Unknown Verified 04/20/19 13:48 Antibiotics) Milk Containing Products AdvReac Nausea & Verified 04/20/19 13:48 [Dairy] Vomiting & Diarrhea Surgical - Exam Vital Signs Temp Pulse Resp BP Pulse Ox 97.9 F 85 20 125/78 98 04/20/19 10:38 04/20/19 10:38 04/20/19 10:38 04/20/19 10:38 04/20/19 10:38 Physical exam: General: Well-developed, well-nourished HEENT: Normocephalic, sclerae nonicteric Abdomen: Nontender, nondistended, suprapubic catheter noted Extremities: No edema Neuro: Alert and oriented Bilateral facial decubitus ulcers noted right side larger than left, left side clean without visible necrotic tissue, right side larger with some necrotic fat. Palpable friable bone on palpation of the base of the wound. Mild tenderness Results - Labs 04/20/19 12:26 04/20/19 12:26 Abnormal Lab Results - Last 24 Hours (Table) 04/20/19 04/20/19 04/20/19 Range/Units 12:26 12:26 12:26 WBC 15.8 H (3.8-10.6) k/uL Hgb 11.7 L (13.0-17.5) gm/dL MCH 24.3 L (25.0-35.0) pg MCHC 29.2 L (31.0-37.0) g/dL Plt Count 1075 H* (150-450) k/uL Neutrophils # 12.3 H (1.3-7.7) k/uL Glucose 101 H (74-99) mg/dL Plasma Lactic Acid Rey 2.2 H* (0.7-2.0) mmol/L Total Bilirubin 0.1 L (0.2-1.3) mg/dL ALT 15 L (21-72) U/L Alkaline Phosphatase 143 H (38-126) U/L Total Protein 8.4 H (6.3-8.2) g/dL Albumin 3.0 L (3.5-5.0) g/dL Urine Protein (Negative) Urine Blood (Negative) Ur Leukocyte Esterase (Negative) Urine RBC (0-5) /hpf Urine WBC (0-5) /hpf Urine WBC Clumps (None) /hpf Urine Bacteria (None) /hpf Urine Mucus (None) /hpf Urine Yeast (Budding) (None) /hpf 04/20/19 Range/Units 14:37 WBC (3.8-10.6) k/uL Hgb (13.0-17.5) gm/dL MCH (25.0-35.0) pg MCHC (31.0-37.0) g/dL Plt Count (150-450) k/uL Neutrophils # (1.3-7.7) k/uL Glucose (74-99) mg/dL Plasma Lactic Acid Rey (0.7-2.0) mmol/L Total Bilirubin (0.2-1.3) mg/dL ALT (21-72) U/L Alkaline Phosphatase (38-126) U/L Total Protein (6.3-8.2) g/dL Albumin (3.5-5.0) g/dL Urine Protein 1+ H (Negative) Urine Blood Trace H (Negative) Ur Leukocyte Esterase Large H (Negative) Urine RBC 30 H (0-5) /hpf Urine WBC >182 H (0-5) /hpf Urine WBC Clumps Few H (None) /hpf Urine Bacteria Many H (None) /hpf Urine Mucus Occasional H (None) /hpf Urine Yeast (Budding) Moderate H (None) /hpf Diabetes panel 04/20/19 Range/Units 12:26 Sodium 140 (137-145) mmol/L Potassium 3.9 (3.5-5.1) mmol/L Chloride 107 (98-107) mmol/L Carbon Dioxide 25 (22-30) mmol/L BUN 13 (9-20) mg/dL Creatinine 0.80 (0.66-1.25) mg/dL Glucose 101 H (74-99) mg/dL Calcium 9.1 (8.4-10.2) mg/dL AST 27 (17-59) U/L ALT 15 L (21-72) U/L Alkaline Phosphatase 143 H (38-126) U/L Total Protein 8.4 H (6.3-8.2) g/dL Albumin 3.0 L (3.5-5.0) g/dL Calcium panel 04/20/19 Range/Units 12:26 Calcium 9.1 (8.4-10.2) mg/dL Albumin 3.0 L (3.5-5.0) g/dL Pituitary panel 04/20/19 Range/Units 12:26 Sodium 140 (137-145) mmol/L Potassium 3.9 (3.5-5.1) mmol/L Chloride 107 (98-107) mmol/L Carbon Dioxide 25 (22-30) mmol/L BUN 13 (9-20) mg/dL Creatinine 0.80 (0.66-1.25) mg/dL Glucose 101 H (74-99) mg/dL Calcium 9.1 (8.4-10.2) mg/dL Adrenal panel 04/20/19 Range/Units 12:26 Sodium 140 (137-145) mmol/L Potassium 3.9 (3.5-5.1) mmol/L Chloride 107 (98-107) mmol/L Carbon Dioxide 25 (22-30) mmol/L BUN 13 (9-20) mg/dL Creatinine 0.80 (0.66-1.25) mg/dL Glucose 101 H (74-99) mg/dL Calcium 9.1 (8.4-10.2) mg/dL Total Bilirubin 0.1 L (0.2-1.3) mg/dL AST 27 (17-59) U/L ALT 15 L (21-72) U/L Alkaline Phosphatase 143 H (38-126) U/L Total Protein 8.4 H (6.3-8.2) g/dL Albumin 3.0 L (3.5-5.0) g/dL Assessment and Plan (1) Decubitus ulcer of left ischial area Narrative/Plan: Patient with bilateral ischial decubitus ulcers. Clinically has friable bone at the wound base consistent with osteomyelitis. We'll debride the necrotic tissue at the base of the left decubitus ulcer tomorrow at the bedside. No operative debridement necessary at this time. We'll follow. Current Visit: Yes Status: Acute Code(s): L89.329 - PRESSURE ULCER OF LEFT BUTTOCK, UNSPECIFIED STAGE SNOMED Code(s): 851835772 (2) Decubitus ulcer of right ischial area Current Visit: Yes Status: Acute Code(s): L89.319 - PRESSURE ULCER OF RIGHT BUTTOCK, UNSPECIFIED STAGE SNOMED Code(s): 822964739
[2019-04-20] MEDS ORDERED: BISACODYL 10 MG SUPP RECTAL PRN (21:13)
[2019-04-20] MEDS ORDERED: MAGNESIUM HYDROXIDE 2,400 MG/10 ML CUP PO PRN (21:13)
[2019-04-20] MEDS ORDERED: NYSTATIN 100,000UNIT/GM CREAM 30 GM TUBE TOPICAL PRN (21:13)
[2019-04-20] MEDS: GABAPENTIN 100 MG CAP PO SCH (21:59)
[2019-04-21] MEDS: SODIUM CHLORIDE 0.9% 1,000 ML IV SCH ×3 (04:59→10:13)
[2019-04-21] MEDS: LISINOPRIL 2.5 MG TAB PO SCH (05:00)
[2019-04-21] MEDS: GABAPENTIN 100 MG CAP PO SCH ×3 (05:00→19:55)
[2019-04-21] MEDS ORDERED: AMINO ACIDS PO SCH (09:00)
[2019-04-21] MEDS ORDERED: PROTEIN HYDROLYS PO SCH (09:00)
[2019-04-21] MEDS: POLYETHYLENE GLYCOL 3350 17 GM POWD.PACK PO SCH (09:14)
[2019-04-21] MEDS: MEMANTINE 10 MG TAB PO SCH ×2 (09:14→17:43)
[2019-04-21] MEDS: DULoxetine HCL 20 MG CAPSULE.DR PO SCH (09:14)
[2019-04-21] MEDS: metFORMIN 500 MG TAB PO SCH ×2 (09:15→19:55)
--- NOTE | 2019-04-21 13:40 | P.OP ---
Date of Procedure: 04/21/19 Procedure(s) Performed: PREOPERATIVE DIAGNOSIS: Right ischial decubitus ulcer POSTOPERATIVE DIAGNOSIS: Same PROCEDURE: Debridement decubitus ulcer SURGEON: Case EBL: None ANESTHESIA: None COMPLICATIONS: None OPERATIVE PROCEDURE: Patient kept in the room for the procedure. The patient was placed in the left decubitus position. The patient's right ischial decubitus ulcer was addressed. The patient had necrotic subcutaneous fat and muscle that was debrided sharply and excised using the scissors. The patient did have some malodorous fluid noted. As I palpated around the wound bed I found an area that was tunneling superiorly. More purulence was identified. Deep cultures were taken. That area was then packed with 4 x 4 gauze. Sterile dressings applied. DISPOSITION: Stable
--- NOTE | 2019-04-21 13:41 | P.PN ---
Progress Note - Text Progress Note Date: 04/21/[address] at the bedside today. Some purulent fluid encountered tunneling from the right decubitus ulcer site superiorly. Wound packed with gauze and cultures taken. Notify Dr. Peres by phone. Message was left on his voicemail. I will be out of town next week. We'll sign off at this time. Please call or reconsult if needed.
[2019-04-21] MEDS ORDERED: ALTEPLASE 2 MG VIAL (CATHFLO) IV STA (17:33)
--- NOTE | 2019-04-21 17:57 | P.HPIM ---
History of Present Illness H&P Date: 04/21/19 Chief Complaint: Infected decub ulcers History of presenting complaint: This is a 63-year-old patient follows a Dr. Bowling. Patient ruled extensive medical history. Chronic stable medical conditions include gait dysfunction, diabetes, dementia, GERD, normocytic anemia, multiple sclerosis with contractures, DJD, distended bladder, suprapubic catheter, chronic bowel incon tinence, muscle spasms, particularly medication. Patient was here in the hospital about a month ago. Had infected stage IV decubitus ulcers. Debridement was carried out by surgery also patient was followed by infectious disease Dr. Peres. Patient is a chronic pubic Valdes catheter. Patient's blood the wound care center but because of his worsening sacral decubitus ulcers and some fever patient was sent down here. His appetite is okay. Review of systems: GEN.: Tired EYES: None HEENT: None NECK: None RESPIRATORY: None CARDIOVASCULAR: None GASTROINTESTINAL: [Incontinence GENITOURINARY: Incontinence MUSCULOSKELETAL: Pain in the joints LYMPHATICS: None HEMATOLOGICAL: None PSYCHIATRY: P NEUROLOGICAL: Weakness in the legs Social history: Resident at [facility] would've directable. Has a Pradeep lift to wheelchair. Does have a mechanical soft diet and uses special utensils to feed himself. Has a urostomy bag. Patient does smoke in the past. Physical examination: VITAL SIGNS: 97.9, 85, 20, 125/78, 98% room air GENERAL: [BMI 23.7, laying in bed awake tired. EYES: Pupils equal. Conjunctiva normal. HEENT: External appearance of nose and ears normal, oral cavity grossly normal. NECK: JVD not raised; masses not palpable. HEART: First and second heart sounds are normal; no edema. LUNGS: Respiratory rate normal; decreased breath sounds. ABDOMEN: Soft, nontender, liver spleen not palpable, no masses palpable. PSYCH: Alert and oriented x3; mood and affect normal. NEUROLOGICAL: [Cranial nerves grossly intact; no facial asymmetry, decreased pulses lower extremity LYMPHATICS: No lymph nodes palpable in the axilla and neck DERMATOLOGICAL: Stage IV sacral decubitus ulcer. Infected appearing pictures in the chart INVESTIGATIONS, reviewed in the clinical context: White count 15.8 hemoglobin 11.7 platelets 1075 potassium 3.9 creatinine 0.80 Lactic acid 2.2 albumin 3 UA positive for leukoesterase WBC RBC, increased Assessment: -Acute on chronic worsening stage IV sacral decubitus ulcers, infected with sepsis picture. Had been debrided about a month ago. -Chronic neurogenic bladder with a suprapubic catheter -Diabetes mellitus type 2 -Multiple sclerosis with contractures -Chronic medical debility patient to baseline and uses a Pradeep lift -Chronic neurogenic bladder with urostomy chronic bowel incontinence -Macular degeneration from diabetes Assessment: -Dr. Willoughby from general surgery was consulted. Patient be seen early this afternoon. With review to debridement. Home medications resumed. ID was consulted. Antibiotics per Dr. Peres.. prognosis guarded. Past Medical History Past Medical History: Dementia, Diabetes Mellitus, Eye Disorder, GERD/Reflux, Mitral Valve Prolapse (MVP), Musculoskeletal Disorder, Neurologic Disorder, Renal Disease, Vascular Disorder Additional Past Medical History / Comment(s): Multiple sclerosis with contractions, pradeep lift to wheelchair, current bilateral buttock decubitus ulcers, spouse believes pt has sores around toes, decubitus ulcers with sepsis, osteomylitis, bladder atony/neurogenic bladder with urostomy, UTIs, UTI with sepsis, bladder and kidney stones, bowel incontinence, past cellulitis bilateral lower legs, NIDDM type II, macular degeneration bilateral eyes, PVD. History of Any Multi-Drug Resistant Organisms: ESBL, MRSA, Other MDRO Date of last positivie culture/infection: 01/19/19 MRSA; 04/06/19 ESBL-E.coli MDRO Source:: MRSA HIP, ESBL Right Hip Past Surgical History: No Surgical Hx Reported Additional Past Surgical History / Comment(s): Supra pubic catheter placement and removal of bladder stones, I&D scrotal abcess, penile implant and removal with necrotic tissue removal, PICC line insertions and has current power picc to L upper arm, debridement lt trochanter, debridements sacral ulcers. Past Anesthesia/Blood Transfusion Reactions: No Reported Reaction Additional Past Anesthesia/Blood Transfusion Reaction / Comment(s): Pt has never received blood. Past Psychological History: Depression Additional Psychological History / Comment(s): Pt resides at [facility]. He is a pradeep lift to wheelchair. He is on a mechanical soft diet and uses special utensils to feed himself. He has a urostomy which was changed on 04/10/19 Smoking Status: Former smoker Past Alcohol Use History: None Reported Additional Past Alcohol Use History / Comment(s): Pt started smoking as a teen and quit in the 1980s. Past Drug Use History: None Reported - Past Family History Mother Family Medical History: Eye Disorder Additional Family Medical History / Comment(s): Mother had a neurological condition that affected her eyesight. She at the age of 85 yrs. Father Family Medical History: Diabetes Mellitus Additional Family Medical History / Comment(s): Father was a brittle diabetic and in his 50s. Medications and Allergies Home Medications Medication Instructions Recorded Confirmed Type Gabapentin [Neurontin] 200 mg PO TID@0500,1300,2100 08/30/14 04/20/19 History Nystatin 100,000Unit/gm Cream 1 applic TOPICAL BID PRN 08/30/14 04/20/19 History [Mycostatin Cream] Polyethylene Glycol 3350 [Miralax] 17 gm PO DAILY@0900 08/31/14 04/20/19 History Memantine [Namenda] 10 mg PO BID@0900,1700 09/26/15 04/20/19 History Amino Acids/Protein Hydrolys 30 ml PO DAILY@0900 01/01/17 04/20/19 History [Pro-Stat Supplement] Lisinopril [Zestril] 2.5 mg PO DAILY@0500 01/01/17 04/20/19 History metFORMIN HCL [Glucophage Xr] 500 mg PO DAILY@0900 01/05/17 04/20/19 History Acetaminophen Tab [Tylenol] 650 mg PO TID@0900,1300,2100 02/16/19 04/20/19 History DULoxetine HCL [Cymbalta] 20 mg PO DAILY@0900 02/16/19 04/20/19 History Magnesium Hydroxide [Milk of 2,400 mg PO DAILY PRN 02/16/19 04/20/19 History Magnesia] Bisacodyl [Dulcolax] 10 mg RECTAL DAILY PRN 04/20/19 04/20/19 History Allergies Allergy/AdvReac Type Severity Reaction Status Date / Time adhesive Allergy Unknown Verified 04/20/19 13:48 heparin (porcine) Allergy Unknown Verified 04/20/19 13:48 [heparin,porcine] Sulfa (Sulfonamide Allergy Unknown Verified 04/20/19 13:48 Antibiotics) Physical Exam Vitals: Vital Signs Temp Pulse Pulse Pulse Resp BP BP 04/21/19 08:04 98.1 F 95 16 144/65 04/21/19 04:41 97.1 F L 88 18 04/20/19 20:44 98.6 F 91 18 04/20/19 16:45 98 F 81 18 04/20/19 16:00 81 18 04/20/19 14:45 98.5 F 04/20/19 13:52 98.1 F 79 18 121/70 04/20/19 10:38 97.9 F 85 20 125/78 BP Pulse Ox 04/21/19 08:04 96 04/21/19 04:41 146/67 96 04/20/19 20:44 157/69 97 04/20/19 16:45 126/76 98 04/20/19 16:00 04/20/19 14:45 04/20/19 13:52 98 04/20/19 10:38 98 Intake and Output 04/20/19 04/21/19 04/21/19 22:59 06:59 14:59 Intake Total 1200 Output Total 900 1000 Balance -900 200 Intake: Intake, IV Titration 1200 Amount Sodium Chloride 0.9% 1, 1200 000 ml @ 150 mls/hr IV . [id number] [facility] Rx#:[id number] Output: Urine 900 1000 Other: Voiding Method Indwelling Catheter Indwelling Catheter Results CBC & Chem 7: 04/20/19 12:26 04/20/19 12:26 Labs: Abnormal Lab Results - Last 24 Hours (Table) 04/20/19 04/20/19 04/20/19 Range/Units 12:26 12:26 12:26 WBC 15.8 H (3.8-10.6) k/uL Hgb 11.7 L (13.0-17.5) gm/dL MCH 24.3 L (25.0-35.0) pg MCHC 29.2 L (31.0-37.0) g/dL Plt Count 1075 H* (150-450) k/uL Neutrophils # 12.3 H (1.3-7.7) k/uL Glucose 101 H (74-99) mg/dL Plasma Lactic Acid Rey 2.2 H* (0.7-2.0) mmol/L Total Bilirubin 0.1 L (0.2-1.3) mg/dL ALT 15 L (21-72) U/L Alkaline Phosphatase 143 H (38-126) U/L Total Protein 8.4 H (6.3-8.2) g/dL Albumin 3.0 L (3.5-5.0) g/dL Urine Protein (Negative) Urine Blood (Negative) Ur Leukocyte Esterase (Negative) Urine RBC (0-5) /hpf Urine WBC (0-5) /hpf Urine WBC Clumps (None) /hpf Urine Bacteria (None) /hpf Urine Mucus (None) /hpf Urine Yeast (Budding) (None) /hpf 04/20/19 Range/Units 14:37 WBC (3.8-10.6) k/uL Hgb (13.0-17.5) gm/dL MCH (25.0-35.0) pg MCHC (31.0-37.0) g/dL Plt Count (150-450) k/uL Neutrophils # (1.3-7.7) k/uL Glucose (74-99) mg/dL Plasma Lactic Acid Rey (0.7-2.0) mmol/L Total Bilirubin (0.2-1.3) mg/dL ALT (21-72) U/L Alkaline Phosphatase (38-126) U/L Total Protein (6.3-8.2) g/dL Albumin (3.5-5.0) g/dL Urine Protein 1+ H (Negative) Urine Blood Trace H (Negative) Ur Leukocyte Esterase Large H (Negative) Urine RBC 30 H (0-5) /hpf Urine WBC >182 H (0-5) /hpf Urine WBC Clumps Few H (None) /hpf Urine Bacteria Many H (None) /hpf Urine Mucus Occasional H (None) /hpf Urine Yeast (Budding) Moderate H (None) /hpf Microbiology - Last 24 Hours (Table) 04/20/19 14:37 Urine Culture - Preliminary Urine,Catheterized Thrombosis Risk Factor Assmnt - Choose All That Apply Any of the Below Risk Factors Present?: Yes Each Factor Represents 1 point: Medical pt on bed rest, Swollen legs (current) Other Risk Factors: Yes Each Risk Factor Represents 2 Points: Age 61-74 years, Patient confined to bed Other congenital or acquired thrombophilia - If yes, enter type in comment: No Thrombosis Risk Factor Assessment Total Risk Factor Score: 6 Thrombosis Risk Factor Assessment Level: High Risk
--- NOTE | 2019-04-22 00:10 | P.CONS ---
History of Present Illness - Reason for Consult Consult date: 04/21/19 - Chief Complaint Worsening pressure ulcer - History of Present Illness 63-year-old male well-known to the infectious disease service from his hospitalization his care center. Patient has a long-standing history of progressive unremitting multiple sclerosis for which she is bedbound and has developed extensive pressure ulcerations to his buttocks. Other difficulties include diabetes and GERD chronic anemia mild dementia difficulties with urinary outlet obstruction requiring his catheter. He has been followed in the outpatient clinic Center regarding the stage IV pressure ulcerations to the buttocks. Most recent hospitalization he underwent surgical debridement of these ulcerations. He was treated with a course of intravenous antibiotic therapy and referral was made to the tertiary center for plastic and reconstructive surgery evaluation. This is coming up at the end of this month. He over now presents with worsening increasing drainage and is followed odor has been seen by surgery. He has had a side debridement that did show some tunneling and is currently packed. The nurse relates that was first opened there was some foul drainage but it is now improved. Saline moistened dressing is placed into the area for now. Is also related that his PICC line is not f lushing well at this time. It however is not painful. He is more awake and alert than he was during his last stay. Review of Systems Patient does feel weak and tired HEENT:Denies headache or acute visual change. Denies sinus or mouth discomforts. Denies neck stiffness or pain. Denies significant oral cavity pain. Denies difficulty on swallowing. Lungs: Denies significant shortness of breath, cough, sputum production, or hemoptysis. Cardiovascular: Denies significant shortness of breath, chest pain, chest wall pain, orthopnea, dyspnea on exertion, syncope Gastrointestinal:Denies nausea, vomiting, diarrhea, constipation, hematemesis, melena, hematochezia. No no significant change of bowel habit noticed. Musculoskeletal: denies significant myalgias or arthralgias. No new joint swelling. Denies new back pain. Skin: The extensive pressure ulcerations are noted however not painful. Neuro: Denies headache or visual change. No acute change of his profound weakness of his MS Psychiatric:Denies anxiety or depression. Endocrine: Fatigue weight has been stable Past Medical History Past Medical History: Dementia, Diabetes Mellitus, Eye Disorder, GERD/Reflux, Mitral Valve Prolapse (MVP), Musculoskeletal Disorder, Neurologic Disorder, Renal Disease, Vascular Disorder Additional Past Medical History / Comment(s): Multiple sclerosis with contractions, susie lift to wheelchair, current bilateral buttock decubitus ulcers, spouse believes pt has sores around toes, decubitus ulcers with sepsis, osteomylitis, bladder atony/neurogenic bladder with urostomy, UTIs, UTI with sepsis, bladder and kidney stones, bowel incontinence, past cellulitis bilateral lower legs, NIDDM type II, macular degeneration bilateral eyes, PVD. History of Any Multi-Drug Resistant Organisms: ESBL, MRSA, Other MDRO Year Discovered:: 01/19/19 MRSA; 04/06/19 ESBL-E.coli MDRO Source:: MRSA HIP, ESBL Right Hip Past Surgical History: No Surgical Hx Reported Additional Past Surgical History / Comment(s): Supra pubic catheter placement and removal of bladder stones, I&D scrotal abcess, penile implant and removal with necrotic tissue removal, PICC line insertions and has current power picc to L upper arm, debridement lt trochanter, debridements sacral ulcers. Past Anesthesia/Blood Transfusion Reactions: No Reported Reaction Additional Past Anesthesia/Blood Transfusion Reaction / Comm: Pt has never received blood. Past Psychological History: Depression Additional Psychological History / Comment(s): Pt resides at [facility]. He is a susie lift to wheelchair. He is on a mechanical soft diet and uses special utensils to feed himself. He has a urostomy which was changed on 04/10/19 Smoking Status: Former smoker Past Alcohol Use History: None Reported Additional Past Alcohol Use History / Comment(s): Pt started smoking as a teen and quit in the 1980s. Past Drug Use History: None Reported - Past Family History Mother Family Medical History: Eye Disorder Additional Family Medical History / Comment(s): Mother had a neurological condition that affected her eyesight. She at the age of 85 yrs. Father Family Medical History: Diabetes Mellitus Additional Family Medical History / Comment(s): Father was a brittle diabetic and in his 50s. Medications and Allergies Home Medications and Allergies Comment(s): Current Medications Acetaminophen (Tylenol Tab) 650 mg PO Q6HR PRN PRN Reason: Mild Pain or Fever > 100.5 Bisacodyl (Dulcolax) 10 mg RECTAL DAILY PRN PRN Reason: Constipation Duloxetine HCl (Cymbalta) 20 mg PO DAILY@0900 [facility] Last Admin: 04/21/19 09:14 Dose: 20 mg Documented by: Gabapentin (Neurontin) 200 mg PO TID@0500,1300,2100 [facility] Last Admin: 04/21/19 19:55 Dose: 200 mg Documented by: Sodium Chloride (Saline 0.9%) 1,000 mls @ 150 mls/hr IV .Q6H40M [facility] Last Admin: 04/21/19 10:13 Dose: 150 mls/hr Documented by: Ibuprofen (Motrin) 400 mg PO Q6HR PRN PRN Reason: Mild Pain or Fever > 100.5 Lisinopril (Zestril) 2.5 mg PO DAILY@0500 [facility] Last Admin: 04/21/19 05:00 Dose: 2.5 mg Documented by: Magnesium Hydroxide (Milk Of Magnesia) 2,400 mg PO DAILY PRN PRN Reason: Constipation Memantine (Namenda) 10 mg PO BID@0900,1700 [facility] Last Admin: 04/21/19 17:43 Dose: 10 mg Documented by: Metformin HCl (Glucophage) 250 mg PO BID [facility] Last Admin: 04/21/19 19:55 Dose: 250 mg Documented by: Naloxone HCl (Narcan) 0.2 mg IV Q2M PRN PRN Reason: Opioid Reversal Nystatin (Mycostatin Cream) 1 applic TOPICAL BID PRN PRN Reason: REDNESS/RASH Polyethylene Glycol (Miralax) 17 gm PO DAILY@0900 [facility] Last Admin: 04/21/19 09:14 Dose: 17 gm Documented by: Home Medications Medication Instructions Recorded Confirmed Type Gabapentin [Neurontin] 200 mg PO TID@0500,1300,2100 08/30/14 04/20/19 History Nystatin 100,000Unit/gm Cream 1 applic TOPICAL BID PRN 08/30/14 04/20/19 History [Mycostatin Cream] Polyethylene Glycol 3350 [Miralax] 17 gm PO DAILY@0900 08/31/14 04/20/19 History Memantine [Namenda] 10 mg PO BID@0900,1700 09/26/15 04/20/19 History Amino Acids/Protein Hydrolys 30 ml PO DAILY@0900 01/01/17 04/20/19 History [Pro-Stat Supplement] Lisinopril [Zestril] 2.5 mg PO DAILY@0500 01/01/17 04/20/19 History metFORMIN HCL [Glucophage Xr] 500 mg PO DAILY@0900 01/05/17 04/20/19 History Acetaminophen Tab [Tylenol] 650 mg PO TID@0900,1300,2100 02/16/19 04/20/19 History DULoxetine HCL [Cymbalta] 20 mg PO DAILY@0900 02/16/19 04/20/19 History Magnesium Hydroxide [Milk of 2,400 mg PO DAILY PRN 02/16/19 04/20/19 History Magnesia] Bisacodyl [Dulcolax] 10 mg RECTAL DAILY PRN 04/20/19 04/20/19 History Allergies Allergy/AdvReac Type Severity Reaction Status Date / Time adhesive Allergy Unknown Verified 04/20/19 13:48 heparin (porcine) Allergy Unknown Verified 04/20/19 13:48 [heparin,porcine] Sulfa (Sulfonamide Allergy Unknown Verified 04/20/19 13:48 Antibiotics) Physical Exam Vitals: Vital Signs Temp Pulse Pulse Resp BP BP Pulse Ox 04/21/19 21:00 98.1 F 97 16 135/65 93 L 04/21/19 16:00 89 76 17 04/21/19 13:06 98.2 F 89 17 146/66 97 04/21/19 12:43 98 F 87 18 137/76 97 04/21/19 08:04 98.1 F 95 16 144/65 96 04/21/19 08:00 76 04/21/19 04:41 97.1 F L 88 18 146/67 96 Intake and Output 04/21/19 04/21/19 04/22/19 14:59 22:59 06:59 Intake Total 2370 Output Total 900 900 Balance 1470 -900 Intake: Intake, IV Titration 1950 Amount Piperacillin-Tazobactam 3 100 .375 gm In Sodium Chloride 0.9% 100 ml @ 200 mls/hr IVPB ONCE STA Rx#:[id number] Sodium Chloride 0.9% 1, 1800 000 ml @ 150 mls/hr IV . Q6H40M [facility] Rx#:[id number] cefTRIAXone 1 gm In 50 Sodium Chloride 0.9% 50 ml @ 100 mls/hr IVPB ONCE ONE Rx#:[id number] Oral 420 Output: Urine 900 900 Other: Voiding Method Indwelling Catheter Indwelling Catheter # Voids 1 1 Weight 86.183 kg Pleasant 63-year-old male more awake and alert than during his last stay. HEENT: Anicteric conjunctiva are pink and moist nasal mucosa grossly intact without significant lesions, there is no thrush. Neck: The neck is supple without significant lymphadenopathy or thyromegaly. Lungs: Good bilateral air entry without significant crackles or wheezing. There is no significant bronchial sounds. There is no egophony or dullness. Heart: Regular rate and rhythm with an audible S1-S2, no S3 no S4. There is no significant murmur click or rub, PMI was nondisplaced. Abdomen: Positive bowel sounds soft and nontender without palpable masses or organomegaly. There was no guarding or rebound. Extremities: The upper extremities have excellent pulses they are symmetric, no significant petechiae or telangiectasia. No splinter hemorrhages were noted. The lower extremities are free from significant edema. The peripheral pulses were 2+ and symmetric. Neuro: Awake alert oriented to person, There are no acute neuro changes Results CBC & Chem 7: 04/20/19 12:26 04/20/19 12:26 Labs: Microbiology - Last 24 Hours (Table) 04/20/19 14:37 Urine Culture - Preliminary Urine,Catheterized Gram Neg Bacilli 04/21/19 11:20 Anaerobic Culture - Preliminary Buttock 04/21/19 11:20 Wound Culture - Preliminary Buttock 04/20/19 12:26 Blood Culture - Preliminary Blood No Growth after 24 hours Laboratory Results WBC 15.8 k/uL (3.8-10.6) H 04/20/19 12:26 RBC 4.80 m/uL (4.30-5.90) 04/20/19 12:26 Hgb 11.7 gm/dL (13.0-17.5) L 04/20/19 12:26 Hct 40.0 % (39.0-53.0) 04/20/19 12: MCV 83.5 fL (80.0-100.0) 04/20/19 12:26 MCH 24.3 pg (25.0-35.0) L 04/20/19 12: MCHC 29.2 g/dL (31.0-37.0) L 04/20/19 12:26 RDW 15.1 % (11.5-15.5) 04/20/19 12:26 Plt Count 1075 k/uL (150-450) H* 04/20/19 12:26 Neutrophils % 78 % 04/20/19 12:26 Lymphocytes % 9 % 04/20/19 12:26 Monocytes % 6 % 04/20/19 12:26 Eosinophils % 3 % 04/20/19 12:26 Basophils % 1 % 04/20/19 12:26 Neutrophils # 12.3 k/uL (1.3-7.7) H 04/20/19 12:26 Lymphocytes # 1.5 k/uL (1.0-4.8) 04/20/19 12:26 Monocytes # 1.0 k/uL (0-1.0) 04/20/19 12:26 Eosinophils # 0.4 k/uL (0-0.7) 04/20/19 12:26 Basophils # 0.1 k/uL (0-0.2) 04/20/19 12:26 Manual Slide Review Performed 04/20/19 12:26 Hypochromasia Marked 04/20/19 12:26 Sodium 140 mmol/L (137-145) 04/20/19 12:26 Potassium 3.9 mmol/L (3.5-5.1) 04/20/19 12:26 Chloride 107 mmol/L (98-107) 04/20/19 12:26 Carbon Dioxide 25 mmol/L (22-30) 04/20/19 12:26 Anion Gap 8 mmol/L 04/20/19 12:26 BUN 13 mg/dL (9-20) 04/20/19 12:26 Creatinine 0.80 mg/dL (0.66-1.25) 04/20/19 12:26 Est GFR (CKD-EPI)AfAm >90 (>60 ml/min/1.73 sqM) 04/20/19 12:26 Est GFR (CKD-EPI)NonAf >90 (>60 ml/min/1.73 sqM) 04/20/19 12:26 Glucose 101 mg/dL (74-99) H 04/20/19 12:26 Lactic Ac Sepsis Rflx Y 04/20/19 12:58 Plasma Lactic Acid Rey 2.0 mmol/L (0.7-2.0) 04/20/19 16:09 Calcium 9.1 mg/dL (8.4-10.2) 04/20/19 12:26 Total Bilirubin 0.1 mg/dL (0.2-1.3) L 04/20/19 12:26 AST 27 U/L (17-59) 04/20/19 12:26 ALT 15 U/L (21-72) L 04/20/19 12:26 Alkaline Phosphatase 143 U/L (38-126) H 04/20/19 12:26 Troponin I <0.012 ng/mL (0.000-0.034) 04/20/19 12:26 Total Protein 8.4 g/dL (6.3-8.2) H 04/20/19 12:26 Albumin 3.0 g/dL (3.5-5.0) L 04/20/19 12:26 Urine Color Yellow 04/20/19 14:37 Urine Appearance Cloudy (Clear) 04/20/19 14:37 Urine pH 6.0 (5.0-8.0) 04/20/19 14:37 Ur Specific [place] 1.018 (1.001-1.035) 04/20/19 14:37 Urine Protein 1+ (Negative) H 04/20/19 14:37 Urine Glucose (UA) Negative (Negative) 04/20/19 14:37 Urine Ketones Negative (Negative) 04/20/19 14:37 Urine Blood Trace (Negative) H 04/20/19 14:37 Urine Nitrite Positive (Negative) 04/20/19 14:37 Urine Bilirubin Negative (Negative) 04/20/19 14:37 Urine Urobilinogen <2.0 mg/dL (<2.0) 04/20/19 14:37 Ur Leukocyte Esterase Large (Negative) H 04/20/19 14:37 Urine RBC 30 /hpf (0-5) H 04/20/19 14:37 Urine WBC >182 /hpf (0-5) H 04/20/19 14:37 Urine WBC Clumps Few /hpf (None) H 04/20/19 14:37 Urine Bacteria Many /hpf (None) H 04/20/19 14:37 Urine Mucus Occasional /hpf (None) H 04/20/19 14:37 Urine Yeast (Budding) Moderate /hpf (None) H 04/20/19 14:37 Microbiology 04/21/19 11:20 Buttock Gram Stain - Preliminary 04/21/19 11:20 Buttock Wound Culture - Preliminary 04/20/19 14:37 Urine,Catheterized Urine Culture - Preliminary Gram Neg Bacilli 04/21/19 11:20 Buttock Anaerobic Culture - Preliminary 04/20/19 12:26 Blood Blood Culture - Preliminary No Growth after 24 hours Assessment and Plan (1) ESBL (extended spectrum beta-lactamase) producing bacteria infection Narrative/Plan: 63-year-old male has chronic progressive unremitting multiple sclerosis who is bedbound and has developed progressive pressure ulcerations to his buttocks. They worsened as of late he was seen in the outpatient clinic and referred to hospital. He has not been seen by surgery and bedside debridement has occurred and some tunneling was noted. Skin cleansed and tunnel has been packed with saline moistened gauze. Continue this for now until there is evidence of some improvement of infection. There is a recent outpatient culture that shows evidence of multiple bacteria including ESBL all susceptible to meropenem. This will be initiated at this point in time. Further wound care can be devised as infection starts to improve hematologically be a candidate for negative pressure system. The patient's spouse is present and we reinforced the importance of keeping the plastic and reconstructive surgery consultation later this month. He'll remain on antibiotics for now. Current Visit: Yes Status: Acute Code(s): A49.9 - BACTERIAL INFECTION, UNSPECIFIED; Z16.12 - EXTENDED SPECTRUM BETA LACTAMASE (ESBL) RESISTANCE SNOMED Code(s): 634097035 (2) Decubitus ulcer of left ischial area Current Visit: Yes Status: Acute Code(s): L89.329 - PRESSURE ULCER OF LEFT BUTTOCK, UNSPECIFIED STAGE SNOMED Code(s): 259890113 (3) Decubitus ulcer of right ischial area Current Visit: Yes Status: Acute Code(s): L89.319 - PRESSURE ULCER OF RIGHT BUTTOCK, UNSPECIFIED STAGE SNOMED Code(s): 549079596
[2019-04-22] MEDS: MEROPENEM 1 GM in SODIUM CHLORIDE 0.9% 100 ML IVPB SCH ×4 (00:18→23:29)
[2019-04-22] MEDS: SODIUM CHLORIDE 0.9% 1,000 ML IV SCH ×4 (03:40→19:42)
[2019-04-22] MEDS: LISINOPRIL 2.5 MG TAB PO SCH (05:35)
[2019-04-22] MEDS: GABAPENTIN 100 MG CAP PO SCH ×3 (05:35→21:22)
[2019-04-22] MEDS: POLYETHYLENE GLYCOL 3350 17 GM POWD.PACK PO SCH (09:25)
[2019-04-22] MEDS: metFORMIN 500 MG TAB PO SCH ×2 (09:25→21:22)
[2019-04-22] MEDS: DULoxetine HCL 20 MG CAPSULE.DR PO SCH (09:26)
[2019-04-22] MEDS: MEMANTINE 10 MG TAB PO SCH ×2 (09:26→16:18)
[2019-04-22] MEDS: ACETAMINOPHEN TAB 325 MG TAB PO PRN (10:56)
--- NOTE | 2019-04-22 15:13 | P.PN ---
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 He is awake and oriented partially to time and person but is oriented to place and he knows why he is in the hospital. He is not in pain currently Objective - Vital Signs Vital signs: Vital Signs Temp 99.6 F 04/22/19 05:00 Pulse 92 04/22/19 05:00 Resp 16 04/22/19 05:00 BP 145/66 04/22/19 05:00 Pulse Ox 95 04/22/19 05:00 Intake & Output 04/21/19 04/22/19 04/22/19 18:59 06:59 18:59 Intake Total 2370 Output Total 1800 3000 Balance 570 -3000 Weight 86.183 kg Intake: Intake, IV Titration 1950 Amount Piperacillin-Tazobactam 3 100 .375 gm In Sodium Chloride 0.9% 100 ml @ 200 mls/hr IVPB ONCE STA Rx#:[id number] Sodium Chloride 0.9% 1, 1800 000 ml @ 150 mls/hr IV . Q6H40M [facility] Rx#:[id number] cefTRIAXone 1 gm In 50 Sodium Chloride 0.9% 50 ml @ 100 mls/hr IVPB ONCE ONE Rx#:[id number] Oral 420 Output: Urine 1800 3000 Other: Voiding Method Indwelling Catheter Indwelling Catheter Indwelling Catheter # Voids 1 1 - Exam -GENERAL: The patient is alert and oriented x2-3, not in any acute distress. HEENT: Pupils are round and equally reacting to light. EOMI. No scleral icterus. No conjunctival pallor. Normocephalic, atraumatic. No pharyngeal erythema. No thyromegaly. CARDIOVASCULAR: S1 and S2 present. No murmurs, rubs, or gallops. PULMONARY: Chest is clear to auscultation, no wheezing or crackles. ABDOMEN: Soft, nontender, nondistended, normoactive bowel sounds. No palpable organomegaly. -MUSCULOSKELETAL: No joint swelling or deformity. Bilateral buttock ulcers EXTREMITIES: No cyanosis, clubbing, or pedal edema. -NEUROLOGICAL: Gross neurological examination did not reveal any focal deficits. Patient is paraplegic and bedbound with contractions of extremities SKIN: No rashes. no petechiae. - Labs CBC & Chem 7: 04/20/19 12:26 04/20/19 12:26 Labs: Microbiology - Last 24 Hours (Table) 04/20/19 12:26 Blood Culture - Preliminary Blood No Growth after 48 hours 04/21/19 11:20 Gram Stain - Preliminary Buttock Wound Culture - Preliminary Gram Neg Bacilli Presumptive MRSA 04/20/19 14:37 Urine Culture - Preliminary Urine,Catheterized Gram Neg Bacilli 04/21/19 11:20 Anaerobic Culture - Preliminary Buttock Assessment and Plan Assessment: Bilateral buttock ulcers with infection secondary to ESBL microorganisms. 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 Pain management. Follow-up WBC and electrolytes Labs and medication were reviewed.. Continue same treatment. Continue with symptomatic treatment. Resume home medication. Monitor lytes and vitals. DVT and GI prophylaxis. Further recommendations of the clinical course of the patient DVT prophylaxis: Eliquis as patient is ALLERGIC to heparin GI Prophylaxis: Pepcid Prognosis is guarded
[2019-04-22] MEDS: APIXABAN 2.5 MG TABLET PO SCH ×2 (16:19→22:55)
[2019-04-22] MEDS: FAMOTIDINE 20 MG/2 ML VIAL IV SCH (21:22)
[2019-04-23] MEDS: GABAPENTIN 100 MG CAP PO SCH ×3 (05:54→20:22)
[2019-04-23] MEDS: LISINOPRIL 2.5 MG TAB PO SCH (05:54)
[2019-04-23 08:49] LABS: Basophils # (A) 0.1 k/uL (0-0.2); Basophils % (A) 1 %; Eosinophils # (A) 0.4 k/uL (0-0.7); Eosinophils % (A) 2 %; HCT 35.5 % (39.0-53.0); HGB 10.7 gm/dL (13.0-17.5); Hypochromasia Moderate; Lymphocytes # (A) 1.2 k/uL (1.0-4.8); Lymphocytes % (A) 8 %; Mean Platelet Volume 5.8; Monocytes # (A) 1.1 k/uL (0-1.0); Monocytes % (A) 7 %; Neutrophils # (A) 12.7 k/uL (1.3-7.7); Neutrophils % (A) 81 %; Platelet Count 951 k/uL (150-450); RBC 4.44 m/uL (4.30-5.90); RDW 15.7 % (11.5-15.5); WBC 15.7 k/uL (3.8-10.6)
[2019-04-23 08:53] LABS: African American GFR (CKD) >90 (>60 ml/min/1.73 sqM); Anion Gap 7 mmol/L; Blood Urea Nitrogen 14 mg/dL (9-20); Calcium 8.4 mg/dL (8.4-10.2); Carbon Dioxide 21 mmol/L (22-30); Chloride 110 mmol/L (98-107); Glucose 106 mg/dL (74-99); Potassium 4.3 mmol/L (3.5-5.1); Sodium 138 mmol/L (137-145)
[2019-04-23] MEDS: metFORMIN 500 MG TAB PO SCH ×2 (09:07→20:21)
[2019-04-23] MEDS: POLYETHYLENE GLYCOL 3350 17 GM POWD.PACK PO SCH (09:07)
[2019-04-23] MEDS: FAMOTIDINE 20 MG/2 ML VIAL IV SCH ×2 (09:08→20:22)
[2019-04-23] MEDS: DULoxetine HCL 20 MG CAPSULE.DR PO SCH (09:08)
[2019-04-23] MEDS: APIXABAN 2.5 MG TABLET PO SCH ×2 (09:08→20:22)
[2019-04-23] MEDS: MEMANTINE 10 MG TAB PO SCH ×2 (09:09→16:50)
[2019-04-23] MEDS: MEROPENEM 1 GM in SODIUM CHLORIDE 0.9% 100 ML IVPB SCH ×3 (09:42→23:43)
[2019-04-23] MEDS: ACETAMINOPHEN TAB 325 MG TAB PO PRN (09:43)
[2019-04-23] MEDS ORDERED: VANCOMYCIN IV PER PHARMACY 1 EACH MISC MISCELLANE PRN (09:56)
--- NOTE | 2019-04-23 10:00 | P.PN ---
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 He is awake and oriented partially to time and person but is oriented to place and he knows why he is in the hospital. He is not in pain currently 04/23/2019 Patient remains confused, he does not know his in the hospital he thought he is at the wound center. Labs showing a still persistent leukocytosis of 15.7 K, h is platelet came down to 951 to. Hemoglobin stable at 10.7. Continue is within normal limits as 0.7, electrolytes are normal. Urine culture is growing E. coli, all wound culture is growing gram negative bacilli and presumptive MRSA, patient currently on meropenem as per ID recommendation . We will add vancomycin pharmacy to dose And ask for ID follow-up Patient was started on Eliquis for DVT prophylaxis as he is ALLERGIC to heparin and he tolerates that well. Continue on normal saline at 75 m/h, Review of systems CONSTITUTIONAL: No fever, no malaise, no fatigue. HEENT: Denied any sore throat. CARDIOVASCULAR: No orthopnea, PND, no palpitations, no syncope. PULMONARY: No shortness of breath, no cough, no hemoptysis. GASTROINTESTINAL: No diarrhea, no nausea, no vomiting, no abdominal pain. Normoactive bowel sounds. NEUROLOGICAL: No headaches, no weakness, no numbness. HEMATOLOGICAL: Denies any bleeding or petechiae. GENITOURINARY: Denies any burning micturition, frequency, or urgency. MUSCULOSKELETAL/RHEUMATOLOGICAL: Denies any back pain ENDOCRINE: Denies any polyuria or polydipsia. Active Medications Generic Name Dose Route Start Last Admin Trade Name Freq PRN Reason Stop Dose Admin Acetaminophen 650 mg 04/20/19 13:45 04/23/19 09:43 Tylenol Tab PO 650 mg Q6HR PRN Administration Mild Pain or Fever > 100.5 Apixaban 2.5 mg 04/22/19 15:15 04/23/19 09:08 Eliquis PO 2.5 mg BID [facility] Administration Bisacodyl 10 mg 04/20/19 21:13 Dulcolax RECTAL DAILY PRN Constipation Duloxetine HCl 20 mg 04/21/19 09:00 04/23/19 09:08 Cymbalta PO 20 mg DAILY@0900 [facility] Administration Famotidine 20 mg 04/22/19 21:00 04/23/19 09:08 Pepcid IV 20 mg Q12HR [facility] Administration Gabapentin 200 mg 04/20/19 21:14 04/23/19 05:54 Neurontin PO 200 mg TID@0500,1300,2100 [facility] Administration Sodium Chloride 1,000 mls @ 75 mls/hr 04/20/19 12:30 04/22/19 19:42 Saline 0.9% IV 75 mls/hr .[id number] [facility] Administration Meropenem 1 gm/ Sodium 100 mls @ 200 mls/hr 04/22/19 00:15 04/23/19 09:42 Chloride IVPB 200 mls/hr Q8H [facility] Administration Protocol Lisinopril 2.5 mg 04/21/19 05:00 04/23/19 05:54 Zestril PO 2.5 mg DAILY@0500 [facility] Administration Magnesium Hydroxide 2,400 mg 04/20/19 21:13 Milk Of Magnesia PO DAILY PRN Constipation Memantine 10 mg 04/21/19 09:00 04/23/19 09:09 Namenda PO 10 mg BID@0900,1700 [facility] Administration Metformin HCl 250 mg 04/21/19 09:00 04/23/19 09:07 Glucophage PO 250 mg BID [facility] Administration Miscellaneous Information 1 each 04/23/19 09:56 Pharmacy To Dose Iv Vancomycin MISCELLANE DIRECTED PRN Per Protocol Naloxone HCl 0.2 mg 04/20/19 13:45 Narcan IV Q2M PRN Opioid Reversal Nystatin 1 applic 04/20/19 21:13 Mycostatin Cream TOPICAL BID PRN REDNESS/RASH Polyethylene Glycol 17 gm 04/21/19 09:00 04/23/19 09:07 Miralax PO 17 gm DAILY@0900 [facility] Administration Objective - Vital Signs Vital signs: Vital Signs Temp 98.0 F 04/23/19 04:43 Pulse 90 04/23/19 04:43 Resp 16 04/23/19 04:43 BP 130/67 04/23/19 04:43 Pulse Ox 94 L 04/23/19 04:43 Intake & Output 04/22/19 04/23/19 04/23/19 18:59 06:59 18:59 Intake Total 1620 Output Total 850 1400 Balance -850 220 Intake: Intake, IV Titration 900 Amount Meropenem 1 gm In Sodium 100 Chloride 0.9% 100 ml @ 200 mls/hr IVPB Q8H [facility] Rx#:[id number] Sodium Chloride 0.9% 1, 800 000 ml @ 75 mls/hr IV . [id number] [facility] Rx#:[id number] Oral 720 Output: Urine 850 1400 Other: Voiding Method Indwelling Catheter Indwelling Catheter - Exam -GENERAL: The patient is alert and oriented x2-3, not in any acute distress. HEENT: Pupils are round and equally reacting to light. EOMI. No scleral icterus. No conjunctival pallor. Normocephalic, atraumatic. No pharyngeal erythema. No thyromegaly. CARDIOVASCULAR: S1 and S2 present. No murmurs, rubs, or gallops. PULMONARY: Chest is clear to auscultation, no wheezing or crackles. ABDOMEN: Soft, nontender, nondistended, normoactive bowel sounds. No palpable organomegaly. -MUSCULOSKELETAL: No joint swelling or deformity. Bilateral buttock ulcers EXTREMITIES: No cyanosis, clubbing, or pedal edema. -NEUROLOGICAL: Gross neurological examination did not reveal any focal deficits. Patient is paraplegic and bedbound with contractions of extremities SKIN: No rashes. no petechiae. - Labs CBC & Chem 7: 04/23/19 07:53 04/23/19 07:53 Labs: Abnormal Lab Results - Last 24 Hours (Table) 04/23/19 04/23/19 Range/Units 07:53 07:53 WBC 15.7 H (3.8-10.6) k/uL Hgb 10.7 L (13.0-17.5) gm/dL Hct 35.5 L (39.0-53.0) % MCH 24.0 L (25.0-35.0) pg MCHC 30.0 L (31.0-37.0) g/dL RDW 15.7 H (11.5-15.5) % Plt Count 951 H (150-450) k/uL Neutrophils # 12.7 H (1.3-7.7) k/uL Monocytes # 1.1 H (0-1.0) k/uL Chloride 110 H (98-107) mmol/L Carbon Dioxide 21 L (22-30) mmol/L Glucose 106 H (74-99) mg/dL Microbiology - Last 24 Hours (Table) 04/20/19 14:37 Urine Culture - Final Urine,Catheterized Escherichia coli 04/20/19 12:26 Blood Culture - Preliminary Blood No Growth after 48 hours 04/21/19 11:20 Gram Stain - Preliminary Buttock Wound Culture - Preliminary Gram Neg Bacilli Presumptive MRSA Assessment and Plan Assessment: Bilateral buttock ulcers with infection secondary to ESBL microorganisms. Status post debridement on 04/21 Diabetic ulcer acute UTI History of recurrent UTI Multiple sclerosis, patient is bedbound and wheelchair-bound, Neurogenic bladder and bladder atony Bowel incontinence Mitral valve prolapse GERD Diabetes mellitus Dementia History of posterior myelitis Macular degeneration of the eye History of peripheral vascular disease Plan: This is a pleasant 63 years old male who presents with diabetic ulcers on both buttocks, continue with antibiotics as per infectious disease, and IV vancomycin. continue with fluids. Pain management. Follow-up WBC and electrolytes Labs and medication were reviewed.. Continue same treatment. Continue with symptomatic treatment. Resume home medication. Monitor lytes and vitals. DVT and GI prophylaxis. Further recommendations of the clinical course of the patient DVT prophylaxis: Eliquis as patient is ALLERGIC to heparin GI Prophylaxis: Pepcid Prognosis is guarded
[2019-04-23] MEDS ORDERED: VANCOMYCIN 1,500 MG in SODIUM CHLORIDE 0.9% 250 ML IVPB ONE (11:00)
[2019-04-23] MEDS: SODIUM CHLORIDE 0.9% 1,000 ML IV SCH ×2 (12:30→23:45)
[2019-04-23 19:49] LABS: Glucose,Whole Blood 162 mg/dL (75-99)
[2019-04-23] MEDS: VANCOMYCIN 1,500 MG in SODIUM CHLORIDE 0.9% 250 ML IVPB SCH (20:50)
[2019-04-24] MEDS: GABAPENTIN 100 MG CAP PO SCH ×3 (05:02→20:08)
[2019-04-24] MEDS: LISINOPRIL 2.5 MG TAB PO SCH (05:02)
[2019-04-24] MEDS: FAMOTIDINE 20 MG/2 ML VIAL IV SCH ×2 (07:43→20:07)
[2019-04-24] MEDS: DULoxetine HCL 20 MG CAPSULE.DR PO SCH (07:44)
[2019-04-24] MEDS: metFORMIN 500 MG TAB PO SCH ×2 (07:44→20:07)
[2019-04-24] MEDS: APIXABAN 2.5 MG TABLET PO SCH ×2 (07:44→20:08)
[2019-04-24] MEDS: MEROPENEM 1 GM in SODIUM CHLORIDE 0.9% 100 ML IVPB SCH ×3 (07:45→23:42)
[2019-04-24] MEDS: MEMANTINE 10 MG TAB PO SCH ×2 (07:45→16:23)
[2019-04-24] MEDS: SODIUM CHLORIDE 0.9% 1,000 ML IV SCH ×2 (07:46→23:43)
[2019-04-24] MEDS: POLYETHYLENE GLYCOL 3350 17 GM POWD.PACK PO SCH (07:46)
[2019-04-24] MEDS: VANCOMYCIN 1,500 MG in SODIUM CHLORIDE 0.9% 250 ML IVPB SCH ×2 (08:44→20:07)
--- NOTE | 2019-04-24 08:56 | P.PN ---
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 He is awake and oriented partially to time and person but is oriented to place and he knows why he is in the hospital. He is not in pain currently 04/23/2019 Patient remains confused, he does not know his in the hospital he thought he is at the wound center. Labs showing a still persistent leukocytosis of 15.7 K, h is platelet came down to 951 to. Hemoglobin stable at 10.7. Continue is within normal limits as 0.7, electrolytes are normal. Urine culture is growing E. coli, all wound culture is growing gram negative bacilli and presumptive MRSA, patient currently on meropenem as per ID recommendation . We will add vancomycin pharmacy to dose And ask for ID follow-up Patient was started on Eliquis for DVT prophylaxis as he is ALLERGIC to heparin and he tolerates that well. Continue on normal saline at 75 m/h, 04/24/2019 Patient is more awake today, when I saw him over the last 2 days he was more drowsy. However patient could not tell me where he is today compared to the last 2 days he knew he was in the hospital. Also patient is disoriented to time think it is 2010 and person thinking that S Mr. Morris is a president. Patient still been treated for bilateral buttock ulcers secondary to a ESBL microorganisms and MRSA, currently he is on meropenem, nystatin and IV vancomycin was added. Also he is on normal saline at 75 mL/h and Eliquis has been added for DVT prophylaxis. Vitals are stable. Labs this morning are still pending. ID follow-up is requested Discussed with staff Review of systems CONSTITUTIONAL: No fever, no malaise, no fatigue. HEENT: No recent visual problems or hearing problems. Denied any sore throat. CARDIOVASCULAR: No orthopnea, PND, no palpitations, no syncope. PULMONARY: No shortness of breath, no cough, no hemoptysis. GASTROINTESTINAL: No diarrhea, no nausea, no vomiting, no abdominal pain. Normoactive bowel sounds. NEUROLOGICAL: No headaches, no weakness, no numbness. HEMATOLOGICAL: Denies any bleeding or petechiae. GENITOURINARY: Denies any burning micturition, frequency, or urgency. MUSCULOSKELETAL/RHEUMATOLOGICAL: Denies any joint pain, swelling, or any muscle pain. ENDOCRINE: Denies any polyuria or polydipsia. Active Medications Generic Name Dose Route Start Last Admin Trade Name Dmitriq PRN Reason Stop Dose Admin Acetaminophen 650 mg 04/20/19 13:45 04/23/19 09:43 Tylenol Tab PO 650 mg Q6HR PRN Administration Mild Pain or Fever > 100.5 Apixaban 2.5 mg 04/22/19 15:15 04/24/19 07:44 Eliquis PO 2.5 mg BID [facility] Administration Bisacodyl 10 mg 04/20/19 21:13 Dulcolax RECTAL DAILY PRN Constipation Duloxetine HCl 20 mg 04/21/19 09:00 04/24/19 07:44 Cymbalta PO 20 mg DAILY@0900 [facility] Administration Famotidine 20 mg 04/22/19 21:00 04/24/19 07:43 Pepcid IV 20 mg Q12HR [facility] Administration Gabapentin 200 mg 04/20/19 21:14 04/24/19 05:02 Neurontin PO 200 mg TID@0500,1300,2100 [facility] Administration Sodium Chloride 1,000 mls @ 75 mls/hr 04/20/19 12:30 04/24/19 07:46 Saline 0.9% IV 75 mls/hr .[id number] [facility] Administration Meropenem 1 gm/ Sodium 100 mls @ 200 mls/hr 04/22/19 00:15 04/24/19 07:45 Chloride IVPB 200 mls/hr Q8H [facility] Administration Protocol Vancomycin HCl 1,500 mg/ 250 mls @ 125 mls/hr 04/23/19 21:00 04/24/19 08:44 Sodium Chloride IVPB 125 mls/hr Q12HR [facility] Administration Lisinopril 2.5 mg 04/21/19 05:00 04/24/19 05:02 Zestril PO 2.5 mg DAILY@0500 [facility] Administration Magnesium Hydroxide 2,400 mg 04/20/19 21:13 Milk Of Magnesia PO DAILY PRN Constipation Memantine 10 mg 04/21/19 09:00 04/24/19 07:45 Namenda PO 10 mg BID@0900,1700 [facility] Administration Metformin HCl 250 mg 04/21/19 09:00 04/24/19 07:44 Glucophage PO 250 mg BID [facility] Administration Naloxone HCl 0.2 mg 04/20/19 13:45 Narcan IV Q2M PRN Opioid Reversal Nystatin 1 applic 04/20/19 21:13 Mycostatin Cream TOPICAL BID PRN REDNESS/RASH Polyethylene Glycol 17 gm 04/21/19 09:00 04/24/19 07:46 Miralax PO 17 gm DAILY@0900 [facility] Administration Objective - Vital Signs Vital signs: Vital Signs Temp 98.5 F 04/24/19 05:00 Pulse 95 04/24/19 05:00 Resp 16 04/24/19 05:00 BP 139/65 04/24/19 05:00 Pulse Ox 95 04/24/19 05:00 Intake & Output 04/23/19 04/24/19 04/24/19 18:59 06:59 18:59 Intake Total 250 1050 Output Total 2100 2100 775 Balance -1850 -1050 -775 Intake: Intake, IV Titration 250 1050 Amount Meropenem 1 gm In Sodium 200 Chloride 0.9% 100 ml @ 200 mls/hr IVPB Q8H [facility] Rx#:[id number] Sodium Chloride 0.9% 1, 600 000 ml @ 75 mls/hr IV . [id number] [facility] Rx#:[id number] Vancomycin 1,500 mg In 250 250 Sodium Chloride 0.9% 250 ml @ 125 mls/hr IVPB ONCE ONE Rx#:[id number] Output: Urine 2100 2100 775 Other: Voiding Method Indwelling Catheter Indwelling Catheter # Bowel Movements 1 - Exam -GENERAL: The patient is alert and oriented x2-3, not in any acute distress. HEENT: Pupils are round and equally reacting to light. EOMI. No scleral icterus. No conjunctival pallor. Normocephalic, atraumatic. No pharyngeal erythema. No thyromegaly. CARDIOVASCULAR: S1 and S2 present. No murmurs, rubs, or gallops. PULMONARY: Chest is clear to auscultation, no wheezing or crackles. ABDOMEN: Soft, nontender, nondistended, normoactive bowel sounds. No palpable organomegaly. -MUSCULOSKELETAL: No joint swelling or deformity. Bilateral buttock ulcers EXTREMITIES: No cyanosis, clubbing, or pedal edema. -NEUROLOGICAL: Gross neurological examination did not reveal any focal deficits. Patient is paraplegic and bedbound with contractions of extremities SKIN: No rashes. no petechiae. - Labs CBC & Chem 7: 04/23/19 07:53 04/23/19 07:53 Labs: Abnormal Lab Results - Last 24 Hours (Table) 04/23/19 04/23/19 Range/Units 07:53 19:48 Chloride 110 H (98-107) mmol/L Carbon Dioxide 21 L (22-30) mmol/L Glucose 106 H (74-99) mg/dL POC Glucose (mg/dL) 162 H (75-99) mg/dL Microbiology - Last 24 Hours (Table) 04/20/19 12:26 Blood Culture - Preliminary Blood No Growth after 72 hours 04/21/19 11:20 Gram Stain - Preliminary Buttock Wound Culture - Preliminary Escherichia coli Presumptive MRSA 04/20/19 14:37 Urine Culture - Final Urine,Catheterized Escherichia coli Assessment and Plan Assessment: Bilateral buttock ulcers with infection secondary to ESBL microorganisms. Status post debridement on 04/21 Diabetic ulcer acute UTI History of recurrent UTI Multiple sclerosis, patient is bedbound and wheelchair-bound, Neurogenic bladder and bladder atony Bowel incontinence Mitral valve prolapse GERD Diabetes mellitus Dementia History of posterior myelitis Macular degeneration of the eye History of peripheral vascular disease Plan: This is a pleasant 63 years old male who presents with diabetic ulcers on both buttocks, continue with antibiotics as per infectious disease, and IV vancomycin. continue with fluids. Pain management. Follow-up WBC and electrolytes Labs and medication were reviewed.. Continue same treatment. Continue with symptomatic treatment. Resume home medication. Monitor lytes and vitals. DVT and GI prophylaxis. Further recommendations of the clinical course of the patient DVT prophylaxis: Eliquis as patient is ALLERGIC to heparin GI Prophylaxis: Pepcid Prognosis is guarded
--- NOTE | 2019-04-24 09:26 | CDI ---
Documentation Clarification Form Date: 04/24/2019 8:57:28 AM From: Leslie Nichols RN CCDS Admit Date: 04/22/2019 2:27:00 PM Patient Name: Ron Ruiz Visit Number: [id number] Discharge Date: ATTENTION: The Clinical Documentation Specialists (CDI) and [facility] Coding Staff appreciate your assistance in clarifying documentation. Please respond to the clarification below the line at the bottom and electronically sign. The CDI & [facility] Coding staff will review the response and follow-up if needed. Please note: Queries are made part of the Legal Health Record. If you have any questions, please contact the author of this message via ITS. Dr. Paz Sheet The diagnosis Sepsis was documented in the H & P 04/21 but is not noted in subsequent documentation. History/Risk Factors: 63-year-old male presents to the ED from Wound care center for worsening Sacral decubitus ulcer. Medical history Multiple Sclerosis with contractures; DM Clinical Indicators: 04/20/2019 Wbc 15.8; Neutrophils # 12.3; Lactic acid 2.2 ; Total protein 8.4; Albumin 3.0: Culture buttock Ecoli presumptive MRSA; Culture Urine Ecoli Treatment: 04/20/2019 - 2L 0.9ns ivfl bolus; Zosyn ivpb x 1: Rocephin ivpb x1; 04/22 Meropenem ivpb q 8; 04/23 Vancomycin ivpb q 12 hrs Please clarify if the Sepsis was? * Sepsis Present/active this admission * Sepsis Treated and resolved this admission * Sepsis Ruled out * Other, please specify * Clinically unable to determine (Last Query Form Revision: February 2019) unlikely pt has sepsis. no sirs MTDD
[2019-04-24 09:36] LABS: Basophils # (A) 0.2 k/uL (0-0.2); Basophils % (A) 1 %; Eosinophils # (A) 0.3 k/uL (0-0.7); Eosinophils % (A) 3 %; Hypochromasia Marked; Lymphocytes # (A) 1.2 k/uL (1.0-4.8); Lymphocytes % (A) 9 %; MCH 24.6 pg (25.0-35.0); MCHC 30.4 g/dL (31.0-37.0); MCV 80.7 fL (80.0-100.0); Mean Platelet Volume 5.5; Monocytes # (A) 1.1 k/uL (0-1.0); Monocytes % (A) 8 %; Neutrophils # (A) 10.2 k/uL (1.3-7.7); Neutrophils % (A) 77 %; Platelet Count 998 k/uL (150-450); RBC 4.46 m/uL (4.30-5.90); RDW 15.2 % (11.5-15.5); WBC 13.3 k/uL (3.8-10.6)
[2019-04-24 09:47] LABS: African American GFR (CKD) >90 (>60 ml/min/1.73 sqM); Anion Gap 9 mmol/L; Blood Urea Nitrogen 11 mg/dL (9-20); Calcium 8.6 mg/dL (8.4-10.2); Carbon Dioxide 22 mmol/L (22-30); Chloride 108 mmol/L (98-107); Glucose 129 mg/dL (74-99); Potassium 4.2 mmol/L (3.5-5.1); Sodium 139 mmol/L (137-145)
--- NOTE | 2019-04-24 10:03 | CDI ---
Documentation Clarification Form Date: 04/24/2019 09:51am From: Leslie Nichols RN CCDS Admit Date: 04/22/2019 2:27:00 PM Patient Name: Ron Ruiz Visit Number: [id number] Discharge Date: ATTENTION: The Clinical Documentation Specialists (CDI) and [facility] Coding Staff appreciate your assistance in clarifying documentation. Please respond to the clarification below the line at the bottom and electronically sign. The CDI & [facility] Coding staff will review the response and follow-up if needed. Please note: Queries are made part of the Legal Health Record. If you have any questions, please contact the author of this message via ITS. Dr. Jackson Burnette UTI is documented in the Internal Medicine Progress Note 04/22/2019 and in subsequent documentation History/Risk Factors: 63-year-old male presents to the ED from Wound Care for worsening Stage IV Sacral Decubitus ulcer. Medical History Suprapubic Catheter; Multiple Sclerosis Clinical Indicators: Vital Signs: 125/78 85 97.9 20 98% ra WBC: 04/20 15.8 Urinalysis: 04/20 Leukocyte Esterase Large, Wbc >182; Nitrate positive; Urine yeast budding moderate Urine Culture: Escherichia Coli Antibiotics: 04/22 Meropenem ivpb q 8hrs; 04/23 Vancomycin ivbp q 12 hrs Please document the condition that these clinical indicators signify, whether Present on Admission, and cause if known: * UTI due to suprapubic catheter * Other, please specify * Unable to determine (Last Revision: March 2017) dx:UTI due to suprapubic catheter MTDD
--- NOTE | 2019-04-24 23:35 | P.PN ---
Subjective Progress Note Date: 04/24/19 63-year-old male well-known to the infectious disease service from his hospitalization his care center. Patient has a long-standing history of progressive unremitting multiple sclerosis for which she is bedbound and has developed extensive pressure ulcerations to his buttocks. Other difficulties include diabetes and GERD chronic anemia mild dementia difficulties with urinary outlet obstruction requiring his catheter. He has been followed in the outpatient clinic Center regarding the stage IV pressure ulcerations to the buttocks. Most recent hospitalization he underwent surgical debridement of these ulcerations. He was treated with a course of intravenous antibiotic therapy and referral was made to the [facility] center for plastic and reconstructive surgery evaluation. This is coming up at the end of this month. He over now presents with worsening increasing drainage and is followed odor has been seen by surgery. He has had a side debridement that did show some tunneling and is currently packed. The nurse relates that was first opened there was some foul drainage but it is now improved. Saline moistened dressing is placed into the area for now. Is also related that his PICC line is not flushing well at this time. It however is not painful. He is more awake and alert than he was during his last stay. 04/24/2019 doing better today is comfortable no fever Objective - Vital Signs Vital signs: Vital Signs Temp 99.1 F 04/24/19 21:00 Pulse 103 H 04/24/19 21:00 Resp 16 04/24/19 21:00 BP 130/71 04/24/19 21:00 Pulse Ox 93 L 04/24/19 21:00 Intake & Output 04/24/19 04/24/19 04/25/19 06:59 18:59 06:59 Intake Total 1050 600 120 Output Total 2100 1675 Balance -1050 -1075 120 Weight 86.183 kg Intake: Intake, IV Titration 1050 600 Amount Meropenem 1 gm In Sodium 200 Chloride 0.9% 100 ml @ 200 mls/hr IVPB Q8H [facility] Rx#:[id number] Sodium Chloride 0.9% 1, 600 600 000 ml @ 75 mls/hr IV . [id number] [facility] Rx#:[id number] Vancomycin 1,500 mg In 250 Sodium Chloride 0.9% 250 ml @ 125 mls/hr IVPB ONCE ONE Rx#:[id number] Oral 120 Output: Urine 2100 1675 Other: Voiding Method Indwelling Catheter Indwelling Catheter - Exam Pleasant 63-year-old male more awake and alert than during his last stay. HEENT: Anicteric conjunctiva are pink and moist nasal mucosa grossly intact without significant lesions, there is no thrush. Neck: The neck is supple without significant lymphadenopathy or thyromegaly. Lungs: Good bilateral air entry without significant crackles or wheezing. There is no significant bronchial sounds. There is no egophony or dullness. Heart: Regular rate and rhythm with an audible S1-S2, no S3 no S4. There is no significant murmur click or rub, PMI was nondisplaced. Abdomen: Positive bowel sounds soft and nontender without palpable masses or organomegaly. There was no guarding or rebound. Extremities: The upper extremities have excellent pulses they are symmetric, no significant petechiae or telangiectasia. No splinter hemorrhages were noted. The lower extremities are free from significant edema. The peripheral pulses were 2+ and symmetric. The large buttocks ulcerations were with stool and cleansed by nurse Neuro: Awake alert oriented to person, There are no acute neuro changes - Labs CBC & Chem 7: 04/24/19 08:33 04/24/19 08:33 Labs: Abnormal Lab Results - Last 24 Hours (Table) 04/24/19 04/24/19 Range/Units 08:33 08:33 WBC 13.3 H (3.8-10.6) k/uL Hgb 11.0 L (13.0-17.5) gm/dL Hct 36.0 L (39.0-53.0) % MCH 24.6 L (25.0-35.0) pg MCHC 30.4 L (31.0-37.0) g/dL Plt Count 998 H (150-450) k/uL Neutrophils # 10.2 H (1.3-7.7) k/uL Monocytes # 1.1 H (0-1.0) k/uL Chloride 108 H (98-107) mmol/L Glucose 129 H (74-99) mg/dL Microbiology - Last 24 Hours (Table) 04/21/19 11:20 Gram Stain - Final Buttock Wound Culture - Final Escherichia coli Methicillin resist S. aureus 04/20/19 12:26 Blood Culture - Preliminary Blood No Growth after 96 hours 04/21/19 11:20 Anaerobic Culture - Final Buttock Anaerobic Gm Negative Bacilli Microbiology 04/21/19 11:20 Buttock Gram Stain - Final 04/21/19 11:20 Buttock Wound Culture - Final Escherichia coli Methicillin resist S. aureus 04/20/19 12:26 Blood Blood Culture - Preliminary No Growth after 96 hours 04/21/19 11:20 Buttock Anaerobic Culture - Final Anaerobic Gm Negative Bacilli 04/20/19 14:37 Urine,Catheterized Urine Culture - Final Escherichia coli Assessment and Plan (1) ESBL (extended spectrum beta-lactamase) producing bacteria infection Narrative/Plan: 63-year-old male has chronic progressive unremitting multiple sclerosis who is bedbound and has developed progressive pressure ulcerations to his buttocks. They worsened as of late he was seen in the outpatient clinic and referred to [facility]. He has not been seen by surgery and bedside debridement has occurred and some tunneling was noted. Skin cleansed and tunnel has been packed with saline moistened gauze. Continue this for now until there is evidence of some improvement of infection. There is a recent outpatient culture that shows evidence of multiple bacteria including ESBL all susceptible to meropenem. This will be initiated at this point in time. Further wound care can be devised as infection starts to improve hematologically be a candidate for negative pressure system. The patient's spouse is present and we reinforced the importance of keeping the plastic and reconstructive surgery consultation later this month. He'll remain on antibiotics for now. Current Visit: Yes Status: Acute Code(s): A49.9 - BACTERIAL INFECTION, UNSPECIFIED; Z16.12 - EXTENDED SPECTRUM BETA LACTAMASE (ESBL) RESISTANCE SNOMED Code(s): 235345802 (2) Decubitus ulcer of left ischial area Current Visit: Yes Status: Acute Code(s): L89.329 - PRESSURE ULCER OF LEFT BUTTOCK, UNSPECIFIED STAGE SNOMED Code(s): 354693374 (3) Decubitus ulcer of right ischial area Current Visit: Yes Status: Acute Code(s): L89.319 - PRESSURE ULCER OF RIGHT BUTTOCK, UNSPECIFIED STAGE SNOMED Code(s): 419348561
[2019-04-25] MEDS: LISINOPRIL 2.5 MG TAB PO SCH (05:21)
[2019-04-25] MEDS: GABAPENTIN 100 MG CAP PO SCH ×3 (05:21→20:55)
[2019-04-25] MEDS ORDERED: VANCOMYCIN TROUGH DUE 1 EACH MISC MISCELLANE ONE (08:00)
[2019-04-25 08:03] LABS: African American GFR (CKD) >90 (>60 ml/min/1.73 sqM); Anion Gap 7 mmol/L; Blood Urea Nitrogen 21 mg/dL (9-20); Calcium 8.9 mg/dL (8.4-10.2); Carbon Dioxide 25 mmol/L (22-30); Chloride 106 mmol/L (98-107); Glucose 136 mg/dL (74-99); Potassium 4.3 mmol/L (3.5-5.1); Sodium 138 mmol/L (137-145)
[2019-04-25 08:04] LABS: Basophils # (A) 0.3 k/uL (0-0.2); Basophils % (A) 2 %; Eosinophils # (A) 0.3 k/uL (0-0.7); Eosinophils % (A) 2 %; HCT 36.2 % (39.0-53.0); HGB 10.9 gm/dL (13.0-17.5); Hypochromasia Marked; Lymphocytes # (A) 1.2 k/uL (1.0-4.8); Lymphocytes % (A) 9 %; MCH 24.4 pg (25.0-35.0); MCHC 30.1 g/dL (31.0-37.0); MCV 81.3 fL (80.0-100.0); Mean Platelet Volume 5.6; Monocytes # (A) 1.4 k/uL (0-1.0); Monocytes % (A) 10 %; Neutrophils # (A) 9.4 k/uL (1.3-7.7); Neutrophils % (A) 72 %; Platelet Count 933 k/uL (150-450); RBC 4.46 m/uL (4.30-5.90); RDW 15.2 % (11.5-15.5); WBC 13.1 k/uL (3.8-10.6)
[2019-04-25] MEDS: metFORMIN 500 MG TAB PO SCH ×2 (08:43→20:54)
[2019-04-25] MEDS: APIXABAN 2.5 MG TABLET PO SCH ×2 (08:43→20:55)
[2019-04-25] MEDS: FAMOTIDINE 20 MG/2 ML VIAL IV SCH (08:43)
[2019-04-25] MEDS: MEROPENEM 1 GM in SODIUM CHLORIDE 0.9% 100 ML IVPB SCH ×2 (08:43→17:56)
[2019-04-25] MEDS: DULoxetine HCL 20 MG CAPSULE.DR PO SCH (08:43)
[2019-04-25] MEDS: POLYETHYLENE GLYCOL 3350 17 GM POWD.PACK PO SCH (08:44)
[2019-04-25] MEDS: MEMANTINE 10 MG TAB PO SCH ×2 (08:44→17:58)
[2019-04-25] MEDS: SODIUM CHLORIDE 0.9% 1,000 ML IV SCH (08:45)
--- NOTE | 2019-04-25 09:08 | P.PN ---
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 He is awake and oriented partially to time and person but is oriented to place and he knows why he is in the hospital. He is not in pain currently 04/23/2019 Patient remains confused, he does not know his in the hospital he thought he is at the wound center. Labs showing a still persistent leukocytosis of 15.7 K, h is platelet came down to 951 to. Hemoglobin stable at 10.7. Continue is within normal limits as 0.7, electrolytes are normal. Urine culture is growing E. coli, all wound culture is growing gram negative bacilli and presumptive MRSA, patient currently on meropenem as per ID recommendation . We will add vancomycin pharmacy to dose And ask for ID follow-up Patient was started on Eliquis for DVT prophylaxis as he is ALLERGIC to heparin and he tolerates that well. Continue on normal saline at 75 m/h, 04/24/2019 Patient is more awake today, when I saw him over the last 2 days he was more drowsy. However patient could not tell me where he is today compared to the last 2 days he knew he was in the hospital. Also patient is disoriented to time think it is 2010 and person thinking that S Mr. Morris is a president. Patient still been treated for bilateral buttock ulcers secondary to a ESBL microorganisms and MRSA, currently he is on meropenem, nystatin and IV vancomycin was added. Also he is on normal saline at 75 mL/h and Eliquis has been added for DVT prophylaxis. Vitals are stable. Labs this morning are still pending. ID follow-up is requested Discussed with staff 04/25/2019 Patient is more awake even better than yesterday, his alertness is gradually improving. He still confused about time, place and person and he thinks in the hospital because of his multiple sclerosis although he's reoriented several times last few days. He is hemodynamically stable, leukocytosis improving down to 13.1 K today, hemoglobin stable. Platelets is trending down gradually to 933, creatinine is normal. Patient remains on meropenem and IV vancomycin, as his wound culture is growing ESBL E. coli and MRSA. ID team are following the patient. Objective - Vital Signs Vital signs: Vital Signs Temp 97.5 F L 04/25/19 04:26 Pulse 98 04/25/19 04:26 Resp 18 04/25/19 04:26 BP 131/76 04/25/19 04:26 Pulse Ox 91 L 04/25/19 04:26 Intake & Output 04/24/19 04/25/19 04/25/19 18:59 06:59 18:59 Intake Total 600 1960 Output Total 1675 950 Balance -1075 1010 Weight 86.183 kg Intake: Intake, IV Titration 600 1000 Amount Meropenem 1 gm In Sodium 100 Chloride 0.9% 100 ml @ 200 mls/hr IVPB Q8H [facility] Rx#:[id number] Sodium Chloride 0.9% 1, 600 900 000 ml @ 75 mls/hr IV . [id number] [facility] Rx#:[id number] Oral 960 Output: Urine 1675 950 Other: Voiding Method Indwelling Catheter Indwelling Catheter # Bowel Movements 0 - Exam -GENERAL: The patient is alert and oriented x2-3, not in any acute distress. HEENT: Pupils are round and equally reacting to light. EOMI. No scleral icterus. No conjunctival pallor. Normocephalic, atraumatic. No pharyngeal erythema. No thyromegaly. CARDIOVASCULAR: S1 and S2 present. No murmurs, rubs, or gallops. PULMONARY: Chest is clear to auscultation, no wheezing or crackles. ABDOMEN: Soft, nontender, nondistended, normoactive bowel sounds. No palpable organomegaly. -MUSCULOSKELETAL: No joint swelling or deformity. Bilateral buttock ulcers EXTREMITIES: No cyanosis, clubbing, or pedal edema. -NEUROLOGICAL: Gross neurological examination did not reveal any focal deficits. Patient is paraplegic and bedbound with contractions of extremities SKIN: No rashes. no petechiae. - Labs CBC & Chem 7: 04/25/19 06:57 04/25/19 06:57 Labs: Abnormal Lab Results - Last 24 Hours (Table) 04/24/19 04/24/19 04/25/19 Range/Units 08:33 08:33 06:57 WBC 13.3 H 13.1 H (3.8-10.6) k/uL Hgb 11.0 L 10.9 L (13.0-17.5) gm/dL Hct 36.0 L 36.2 L (39.0-53.0) % MCH 24.6 L 24.4 L (25.0-35.0) pg MCHC 30.4 L 30.1 L (31.0-37.0) g/dL Plt Count 998 H 933 H (150-450) k/uL Neutrophils # 10.2 H 9.4 H (1.3-7.7) k/uL Monocytes # 1.1 H 1.4 H (0-1.0) k/uL Basophils # 0.3 H (0-0.2) k/uL Chloride 108 H (98-107) mmol/L BUN (9-20) mg/dL Glucose 129 H (74-99) mg/dL 04/25/19 Range/Units 06:57 WBC (3.8-10.6) k/uL Hgb (13.0-17.5) gm/dL Hct (39.0-53.0) % MCH (25.0-35.0) pg MCHC (31.0-37.0) g/dL Plt Count (150-450) k/uL Neutrophils # (1.3-7.7) k/uL Monocytes # (0-1.0) k/uL Basophils # (0-0.2) k/uL Chloride (98-107) mmol/L BUN 21 H (9-20) mg/dL Glucose 136 H (74-99) mg/dL Microbiology - Last 24 Hours (Table) 04/21/19 11:20 Gram Stain - Final Buttock Wound Culture - Final Escherichia coli Methicillin resist S. aureus 04/20/19 12:26 Blood Culture - Preliminary Blood No Growth after 96 hours 04/21/19 11:20 Anaerobic Culture - Final Buttock Anaerobic Gm Negative Bacilli Assessment and Plan Assessment: Bilateral buttock ulcers with infection secondary to ESBL microorganisms. Status post debridement on 04/21 Diabetic ulcer acute UTI History of recurrent UTI Multiple sclerosis, patient is bedbound and wheelchair-bound, Neurogenic bladder and bladder atony Bowel incontinence Mitral valve prolapse GERD Diabetes mellitus Dementia History of posterior myelitis Macular degeneration of the eye History of peripheral vascular disease Plan: This is a pleasant 63 years old male who presents with diabetic ulcers on both buttocks, continue with antibiotics as per infectious disease, and IV vancomycin. continue with fluids. Pain management. Follow-up WBC and electro lytes Labs and medication were reviewed.. Continue same treatment. Continue with symptomatic treatment. Resume home medication. Monitor lytes and vitals. DVT and GI prophylaxis. Further recommendations of the clinical course of the patient DVT prophylaxis: Eliquis as patient is ALLERGIC to heparin GI Prophylaxis: Pepcid Prognosis is guarded
[2019-04-25] MEDS: VANCOMYCIN 1,500 MG in SODIUM CHLORIDE 0.9% 250 ML IVPB SCH ×2 (10:42→20:39)
[2019-04-25] MEDS: FAMOTIDINE 20 MG TAB PO SCH (20:55)
--- NOTE | 2019-04-25 23:12 | P.PN ---
Subjective Progress Note Date: 04/25/19 63-year-old male well-known to the infectious disease service from his hospitalization his care center. Patient has a long-standing history of progressive unremitting multiple sclerosis for which she is bedbound and has developed extensive pressure ulcerations to his buttocks. Other difficulties include diabetes and GERD chronic anemia mild dementia difficulties with urinary outlet obstruction requiring his catheter. He has been followed in the outpatient clinic Center regarding the stage IV pressure ulcerations to the buttocks. Most recent hospitalization he underwent surgical debridement of these ulcerations. He was treated with a course of intravenous antibiotic therapy and referral was made to the [facility] for plastic and reconstructive surgery evaluation. This is coming up at the end of this month. He over now presents with worsening increasing drainage and is followed odor has been seen by surgery. He has had a side debridement that did show some tunneling and is currently packed. The nurse relates that was first opened there was some foul drainage but it is now improved. Saline moistened dressing is placed into the area for now. Is also related that his PICC line is not flushing well at this time. It however is not painful. He is more awake and alert than he was during his last stay. 04/24/2019 doing better today is comfortable no fever 04/25/2019 llittle change of status await transfer to the intermediate facility Objective - Vital Signs Vital signs: Vital Signs Temp 100.0 F H 04/25/19 20:12 Pulse 108 H 04/25/19 20:12 Resp 20 04/25/19 20:12 BP 133/64 04/25/19 20:12 Pulse Ox 96 04/25/19 12:08 Intake & Output 04/25/19 04/25/19 04/26/19 06:59 18:59 06:59 Intake Total 1960 Output Total 950 1800 Balance 1010 -1800 Intake: Intake, IV Titration 1000 Amount Meropenem 1 gm In Sodium 100 Chloride 0.9% 100 ml @ 200 mls/hr IVPB Q8H [facility] Rx#:[id number] Sodium Chloride 0.9% 1, 900 000 ml @ 75 mls/hr IV . [id number] [facility] Rx#:[id number] Oral 960 Output: Urine 950 1800 Suprapubic 1800 Other: Voiding Method Indwelling Catheter Indwelling Catheter Indwelling Catheter # Bowel Movements 0 2 - Exam Pleasant 63-year-old male more awake and alert than during his last stay. HEENT: Anicteric conjunctiva are pink and moist nasal mucosa grossly intact without significant lesions, there is no thrush. Neck: The neck is supple without significant lymphadenopathy or thyromegaly. Lungs: Good bilateral air entry without significant crackles or wheezing. There is no significant bronchial sounds. There is no egophony or dullness. Heart: Regular rate and rhythm with an audible S1-S2, no S3 no S4. There is no significant murmur click or rub, PMI was nondisplaced. Abdomen: Positive bowel sounds soft and nontender without palpable masses or organomegaly. There was no guarding or rebound. Extremities: The upper extremities have excellent pulses they are symmetric, no significant petechiae or telangiectasia. No splinter hemorrhages were noted. The lower extremities are free from significant edema. The peripheral pulses were 2+ and symmetric. The large buttocks ulcerations were with stool and cleansed by nurse Neuro: Awake alert oriented to person, There are no acute neuro changes - Labs CBC & Chem 7: 04/25/19 06:57 04/25/19 06:57 Labs: Abnormal Lab Results - Last 24 Hours (Table) 04/25/19 04/25/19 Range/Units 06:57 06:57 WBC 13.1 H (3.8-10.6) k/uL Hgb 10.9 L (13.0-17.5) gm/dL Hct 36.2 L (39.0-53.0) % MCH 24.4 L (25.0-35.0) pg MCHC 30.1 L (31.0-37.0) g/dL Plt Count 933 H (150-450) k/uL Neutrophils # 9.4 H (1.3-7.7) k/uL Monocytes # 1.4 H (0-1.0) k/uL Basophils # 0.3 H (0-0.2) k/uL BUN 21 H (9-20) mg/dL Glucose 136 H (74-99) mg/dL Microbiology - Last 24 Hours (Table) 04/20/19 12:26 Blood Culture - Preliminary Blood No Growth after 120 hours Laboratory Results WBC 13.1 k/uL (3.8-10.6) H 04/25/19 06:57 RBC 4.46 m/uL (4.30-5.90) 04/25/19 06:57 Hgb 10.9 gm/dL (13.0-17.5) L 04/25/19 06:57 Hct 36.2 % (39.0-53.0) L 04/25/19 06:57 MCV 81.3 fL (80.0-100.0) 04/25/19 06:57 MCH 24.4 pg (25.0-35.0) L 04/25/19 06:57 MCHC 30.1 g/dL (31.0-37.0) L 04/25/19 06:57 RDW 15.2 % (11.5-15.5) 04/25/19 06:57 Plt Count 933 k/uL (150-450) H 04/25/19 06:57 Neutrophils % 72 % 04/25/19 06:57 Lymphocytes % 9 % 04/25/19 06:57 Monocytes % 10 % 04/25/19 06:57 Eosinophils % 2 % 04/25/19 06:57 Basophils % 2 % 04/25/19 06:57 Neutrophils # 9.4 k/uL (1.3-7.7) H 04/25/19 06:57 Lymphocytes # 1.2 k/uL (1.0-4.8) 04/25/19 06:57 Monocytes # 1.4 k/uL (0-1.0) H 04/25/19 06:57 Eosinophils # 0.3 k/uL (0-0.7) 04/25/19 06:57 Basophils # 0.3 k/uL (0-0.2) H 04/25/19 06:57 Manual Slide Review Performed 04/20/19 12:26 Hypochromasia Marked 04/25/19 06:57 Sodium 138 mmol/L (137-145) 04/25/19 06:57 Potassium 4.3 mmol/L (3.5-5.1) 04/25/19 06:57 Chloride 106 mmol/L (98-107) 04/25/19 06:57 Carbon Dioxide 25 mmol/L (22-30) 04/25/19 06:57 Anion Gap 7 mmol/L 04/25/19 06:57 BUN 21 mg/dL (9-20) H 04/25/19 06:57 Creatinine 0.73 mg/dL (0.66-1.25) 04/25/19 06:57 Est GFR (CKD-EPI)AfAm >90 (>60 ml/min/1.73 sqM) 04/25/19 06:57 Est GFR (CKD-EPI)NonAf >90 (>60 ml/min/1.73 sqM) 04/25/19 06:57 Glucose 136 mg/dL (74-99) H 04/25/19 06:57 POC Glucose (mg/dL) 162 mg/dL (75-99) H 04/23/19 19:48 POC Glu Furniture Removalist'S Assistant ID Tamra Topete 04/23/19 19:48 Lactic Ac Sepsis Rflx Y 04/20/19 12:58 Plasma Lactic Acid Ery 2.0 mmol/L (0.7-2.0) 04/20/19 16:09 Calcium 8.9 mg/dL (8.4-10.2) 04/25/19 06:57 Total Bilirubin 0.1 mg/dL (0.2-1.3) L 04/20/19 12:26 AST 27 U/L (17-59) 04/20/19 12:26 ALT 15 U/L (21-72) L 04/20/19 12:26 Alkaline Phosphatase 143 U/L (38-126) H 04/20/19 12:26 Troponin I <0.012 ng/mL (0.000-0.034) 04/20/19 12:26 Total Protein 8.4 g/dL (6.3-8.2) H 04/20/19 12:26 Albumin 3.0 g/dL (3.5-5.0) L 04/20/19 12:26 Urine Color Yellow 04/20/19 14:37 Urine Appearance Cloudy (Clear) 04/20/19 14:37 Urine pH 6.0 (5.0-8.0) 04/20/19 14:37 Ur Specific Llewellyn 1.018 (1.001-1.035) 04/20/19 14:37 Urine Protein 1+ (Negative) H 04/20/19 14:37 Urine Glucose (UA) Negative (Negative) 04/20/19 14:37 Urine Ketones Negative (Negative) 04/20/19 14:37 Urine Blood Trace (Negative) H 04/20/19 14:37 Urine Nitrite Positive (Negative) 04/20/19 14:37 Urine Bilirubin Negative (Negative) 04/20/19 14:37 Urine Urobilinogen <2.0 mg/dL (<2.0) 04/20/19 14:37 Ur Leukocyte Esterase Large (Negative) H 04/20/19 14:37 Urine RBC 30 /hpf (0-5) H 04/20/19 14:37 Urine WBC >182 /hpf (0-5) H 04/20/19 14:37 Urine WBC Clumps Few /hpf (None) H 04/20/19 14:37 Urine Bacteria Many /hpf (None) H 04/20/19 14:37 Urine Mucus Occasional /hpf (None) H 04/20/19 14:37 Urine Yeast (Budding) Moderate /hpf (None) H 04/20/19 14:37 Vancomycin Trough 18.3 ug/mL 04/25/19 06:57 Microbiology 04/20/19 12:26 Blood Blood Culture - Preliminary No Growth after 120 hours 04/21/19 11:20 Buttock Gram Stain - Final 04/21/19 11:20 Buttock Wound Culture - Final Escherichia coli Methicillin resist S. aureus 04/21/19 11:20 Buttock Anaerobic Culture - Final Anaerobic Gm Negative Bacilli 04/20/19 14:37 Urine,Catheterized Urine Culture - Final Escherichia coli Assessment and Plan (1) ESBL (extended spectrum beta-lactamase) producing bacteria infection Narrative/Plan: 63-year-old male has chronic progressive unremitting multiple sclerosis who is bedbound and has developed progressive pressure ulcerations to his buttocks. They worsened as of late he was seen in the outpatient clinic and referred to hospital. He has not been seen by surgery and bedside debridement has occurred and some tunneling was noted. Skin cleansed and tunnel has been packed with saline moistened gauze. Continue this for now until there is evidence of some improvement of infection. There is a recent outpatient culture that shows evidence of multiple bacteria including ESBL all susceptible to meropenem. This will be initiated at this point in time. Further wound care can be devised as infection starts to improve hematologically be a candidate for negative pressure system. The patient's spouse is present and we reinforced the importance of keeping the plastic and reconstructive surgery consultation later this month. He'll remain on antibiotics for now. 04/25/2019 the patient is little change in the status. The plan at this point in time for the patient is to return to the intermediate facility where he will continue his vancomycin and meropenem until he is evaluated by the plastic and reconstructive surgeon at the [facility]. They hopefully will then be able to direct plan that includes surgery and they antibiotic therapy. Continue offloading and protein intake to help healing. Current Visit: Yes Status: Acute Code(s): A49.9 - BACTERIAL INFECTION, UNSPECIFIED; Z16.12 - EXTENDED SPECTRUM BETA LACTAMASE (ESBL) RESISTANCE SN ED Code(s): 287506020 (2) Decubitus ulcer of left ischial area Current Visit: Yes Status: Acute Code(s): L89.329 - PRESSURE ULCER OF LEFT BUTTOCK, UNSPECIFIED STAGE SNOMED Code(s): 279480617 (3) Decubitus ulcer of right ischial area Current Visit: Yes Status: Acute Code(s): L89.319 - PRESSURE ULCER OF RIGHT BUTTOCK, UNSPECIFIED STAGE SNOMED Code(s): 895113709
[2019-04-26] MEDS: SODIUM CHLORIDE 0.9% 1,000 ML IV SCH ×2 (00:13→15:15)
[2019-04-26] MEDS: MEROPENEM 1 GM in SODIUM CHLORIDE 0.9% 100 ML IVPB SCH ×4 (00:14→23:35)
[2019-04-26] MEDS: LISINOPRIL 2.5 MG TAB PO SCH (04:29)
[2019-04-26] MEDS: GABAPENTIN 100 MG CAP PO SCH ×3 (04:29→20:32)
[2019-04-26] MEDS: DULoxetine HCL 20 MG CAPSULE.DR PO SCH (09:11)
[2019-04-26] MEDS: APIXABAN 2.5 MG TABLET PO SCH ×2 (09:11→20:32)
[2019-04-26] MEDS: FAMOTIDINE 20 MG TAB PO SCH ×2 (09:12→20:33)
[2019-04-26] MEDS: MEMANTINE 10 MG TAB PO SCH ×2 (09:12→17:44)
[2019-04-26] MEDS: metFORMIN 500 MG TAB PO SCH ×2 (09:13→20:32)
[2019-04-26] MEDS: POLYETHYLENE GLYCOL 3350 17 GM POWD.PACK PO SCH (09:14)
[2019-04-26] MEDS: ACETAMINOPHEN TAB 325 MG TAB PO PRN (09:53)
[2019-04-26] MEDS: VANCOMYCIN 1,500 MG in SODIUM CHLORIDE 0.9% 250 ML IVPB SCH ×2 (11:30→20:37)
--- NOTE | 2019-04-26 19:30 | P.PN ---
Progress Note - Text Progress Note Date: 04/26/19 Chief Complaint: Infected decub ulcers History of presenting complaint: This is a 63-year-old patient follows a Dr. Bowling. Patient ruled extensive medical history. Chronic stable medical conditions include gait dysfunction, diabetes, dementia, GERD, normocytic anemia, multiple sclerosis with contractures, DJD, distended bladder, suprapubic catheter, chronic bowel incontinence, muscle spasms, particularly medication. Patient was here in the hospital about a month ago. Had infected stage IV decubitus ulcers. Debridement was carried out by surgery also patient was followed by infectious disease Dr. Peres. Patient is a chronic pubic Valdes catheter. Patient's blood the wound care center but because of his worsening sacral decubitus ulcers and some fever patient was sent down here. His appetite is okay. On 04/21/2019 bedside debridement was carried out for Dr. Willoguhby. Patient has been on IV vancomycin and IV meropenem per Dr. Peres. Today-laying in bed. Had a bowel movement. Wound care was continued. Review of systems: Was done for constitutional, cardiovascular, GI, pulmonary. relevant finding as above Active Medications Acetaminophen (Tylenol Tab) 650 mg PO Q6HR PRN PRN Reason: Mild Pain or Fever > 100.5 Last Admin: 04/26/19 09:53 Dose: 650 mg Documented by: Apixaban (Eliquis) 2.5 mg PO BID [facility] Last Admin: 04/26/19 09:11 Dose: 2.5 mg Documented by: Bisacodyl (Dulcolax) 10 mg RECTAL DAILY PRN PRN Reason: Constipation Duloxetine HCl (Cymbalta) 20 mg PO DAILY@0900 [facility] Last Admin: 04/26/19 09:11 Dose: 20 mg Documented by: Famotidine (Pepcid) 20 mg PO Q12HR [facility] Last Admin: 04/26/19 09:12 Dose: 20 mg Documented by: Gabapentin (Neurontin) 200 mg PO TID@0500,1300,2100 [facility] Last Admin: 04/26/19 15:13 Dose: 200 mg Documented by: Sodium Chloride (Saline 0.9%) 1,000 mls @ 75 mls/hr IV .[id number] [facility] Last Admin: 04/26/19 15:15 Dose: 75 mls/hr Documented by: Meropenem 1 gm/ Sodium (Chloride) 100 mls @ 200 mls/hr IVPB Q8H [facility]; Protocol Last Admin: 04/26/19 17:44 Dose: 200 mls/hr Documented by: Vancomycin HCl 1,500 mg/ (Sodium Chloride) 250 mls @ 125 mls/hr IVPB Q12HR [facility] Last Admin: 04/26/19 11:30 Dose: 125 mls/hr Documented by: Lisinopril (Zestril) 2.5 mg PO DAILY@0500 [facility] Last Admin: 04/26/19 04:29 Dose: 2.5 mg Documented by: Magnesium Hydroxide (Milk Of Magnesia) 2,400 mg PO DAILY PRN PRN Reason: Constipation Memantine (Namenda) 10 mg PO BID@0900,1700 [facility] Last Admin: 04/26/19 17:44 Dose: 10 mg Documented by: Metformin HCl (Glucophage) 250 mg PO BID [facility] Last Admin: 04/26/19 09:13 Dose: 250 mg Documented by: Naloxone HCl (Narcan) 0.2 mg IV Q2M PRN PRN Reason: Opioid Reversal Nystatin (Mycostatin Cream) 1 applic TOPICAL BID PRN PRN Reason: REDNESS/RASH Polyethylene Glycol (Miralax) 17 gm PO DAILY@0900 [facility] Last Admin: 04/26/19 09:14 Dose: 17 gm Documented by: Physical examination: VITAL SIGNS: 98.7, 86, 22, 134/64, 94% room air GENERAL: Laying in bed, awake EYES: Pupils equal. Conjunctiva normal. HEENT: External appearance of nose and ears normal, oral cavity grossly normal. NECK: JVD not raised; masses not palpable. HEART: First and second heart sounds are normal; no edema. LUNGS: Respiratory rate normal; decreased breath sounds. ABDOMEN: Soft, nontender, liver spleen not palpable, no masses palpable. PSYCH: Alert and oriented x3; mood and affect normal. NEUROLOGICAL: decreased power lower extremity DERMATOLOGICAL: Stage IV sacral decubitus ulcer. INVESTIGATIONS, reviewed in the clinical context: White count 3.1 hemoglobin 10.9 platelets 93 potassium 4.3 creatinine 0.73 Previous testing White count 15.8 hemoglobin 11.7 platelets 1075 potassium 3.9 creatinine 0.80 Lactic acid 2.2 albumin 3 UA positive for leukoesterase WBC RBC, increased Wound cultures-MRSA and ESBL Assessment: -Acute on chronic worsening stage IV sacral decubitus ulcers, right and left ischeal area infected with sepsis picture. Status post debridement bedside. Wound cultures showing MRSA and ESBL -Chronic neurogenic bladder with a suprapubic catheter -Diabetes mellitus type 2 -Multiple sclerosis with contractures -Chronic medical debility patient to baseline and uses a Pradeep lift -Chronic neurogenic bladder with urostomy - chronic bowel incontinence -Macular degeneration from diabetes Plan: Continue current antibiotics and wound care. We'll discuss with Dr. Peres. Possible follow-up with outpatient plastic surgeon.
[2019-04-27] MEDS: SODIUM CHLORIDE 0.9% 1,000 ML IV SCH (04:30)
[2019-04-27] MEDS: LISINOPRIL 2.5 MG TAB PO SCH (05:44)
[2019-04-27] MEDS: ACETAMINOPHEN TAB 325 MG TAB PO PRN (05:44)
[2019-04-27] MEDS: GABAPENTIN 100 MG CAP PO SCH ×2 (05:44→13:27)
[2019-04-27] MEDS: MEROPENEM 1 GM in SODIUM CHLORIDE 0.9% 100 ML IVPB SCH (08:56)
[2019-04-27] MEDS: APIXABAN 2.5 MG TABLET PO SCH (08:57)
[2019-04-27] MEDS: metFORMIN 500 MG TAB PO SCH (08:57)
[2019-04-27] MEDS: FAMOTIDINE 20 MG TAB PO SCH (08:57)
[2019-04-27] MEDS: DULoxetine HCL 20 MG CAPSULE.DR PO SCH (08:58)
[2019-04-27] MEDS: MEMANTINE 10 MG TAB PO SCH (08:58)
[2019-04-27] MEDS: POLYETHYLENE GLYCOL 3350 17 GM POWD.PACK PO SCH (08:59)
[2019-04-27] MEDS: VANCOMYCIN 1,500 MG in SODIUM CHLORIDE 0.9% 250 ML IVPB SCH (09:52)
[2019-04-27 12:35] VITALS: BP 122/61; PULSE 87; RESP 17; TEMP 97.1
--- NOTE | 2019-04-27 14:39 | P.DS ---
Providers Date of admission: 04/22/19 14:27 Expected date of discharge: 04/27/19 Attending physician: Josue Gandara Consults: 04/20/19 14:22 Consult Physician Routine Consulting Provider: Liam Willoughby Consult Reason/Comments: decubitus ulcer-consultation per Dr. Gandara Do you want consulting provider notified?: Yes, Notify in am 04/21/19 10:00 Consult Physician Routine Consulting Provider: Bong Peres Consult Reason/Comments: infected ulcers Do you want consulting provider notified?: Yes Primary care physician: [facility] Course: Chief Complaint: Infected decub ulcers History of presenting complaint: This is a 63-year-old patient follows a Dr. Bowling. Patient ruled extensive medical history. Chronic stable medical conditions include gait dysfunction, diabetes, dementia, GERD, normocytic anemia, multiple sclerosis with contractures, DJD, distended bladder, suprapubic catheter, chronic bowel incontinence, muscle spasms, particularly medication. Patient was here in the hospital about a month ago. Had infected stage IV decubitus ulcers. Debridement was carried out by surgery also patient was followed by infectious disease Dr. Peres. Patient is a chronic pubic Valdes catheter. Patient's blood the wound care center but because of his worsening sacral decubitus ulcers and some fever patient was sent down here. His appetite is okay. On 04/21/2019 bedside debridement was carried out for Dr. Willoughby. Patient has been on IV vancomycin and IV meropenem per Dr. Peres. Patient is scheduled to see a plastic surgeon as an outpatient. For his decubitus wounds. Today-Sitting on bed. Comfortable. Tolerating his diet.. Consultants: Dr. Willoughby from general surgery who did the debridement Dr. Peres from [place] Physical examination: VITAL SIGNS: 97.1, 87, 17, 122/61, 95% room air GENERAL: Propped up in bed, comfortable EYES: Pupils equal. Conjunctiva normal. HEENT: External appearance of nose and ears normal, oral cavity grossly normal. NECK: JVD not raised; masses not palpable. HEART: First and second heart sounds are normal; no edema. LUNGS: Respiratory rate normal; decreased breath sounds. ABDOMEN: Soft, nontender, liver spleen not palpable, no masses palpable. PSYCH: Alert and oriented x3; mood and affect normal. NEUROLOGICAL: decreased power lower extremity DERMATOLOGICAL: Stage IV sacral decubitus ulcer. INVESTIGATIONS, reviewed in the clinical context: White count 13.1 hemoglobin 10.9 platelets 933 potassium 4.3 creatinine 0.73 Previous testing White count 15.8 hemoglobin 11.7 platelets 1075 potassium 3.9 creatinine 0.80 Lactic acid 2.2 albumin 3 UA positive for leukoesterase WBC RBC, increased Wound cultures-MRSA and ESBL Assessment: -Acute on chronic worsening stage IV sacral decubitus ulcers, right and left ischeal area infected with sepsis picture. Status post debridement bedside. Wound cultures showing MRSA and ESBL -Chronic neurogenic bladder with a suprapubic catheter -Diabetes mellitus type 2 -Multiple sclerosis with contractures -Chronic medical debility patient to baseline and uses a Pradeep lift -Chronic neurogenic bladder with urostomy - chronic bowel incontinence -Macular degeneration from diabetes Disposition: [facility] Patient Condition at Discharge: Undetermined Plan - Discharge Summary Discharge Rx Participant: No New Discharge Prescriptions: No Action Nystatin 100,000Unit/gm Cream [Mycostatin Cream] 1 applic TOPICAL BID PRN PRN Reason: REDNESS/RASH Gabapentin [Neurontin] 200 mg PO TID@0500,1300,2100 Polyethylene Glycol 3350 [Miralax] 17 gm PO DAILY@0900 Memantine [Namenda] 10 mg PO BID@0900,1700 Amino Acids/Protein Hydrolys [Pro-Stat Supplement] 30 ml PO DAILY@0900 Lisinopril [Zestril] 2.5 mg PO DAILY@0500 metFORMIN HCL [Glucophage Xr] 500 mg PO DAILY@0900 Acetaminophen Tab [Tylenol] 650 mg PO TID@0900,1300,2100 DULoxetine HCL [Cymbalta] 20 mg PO DAILY@0900 Magnesium Hydroxide [Milk of Magnesia] 2,400 mg PO DAILY PRN PRN Reason: Constipation Bisacodyl [Dulcolax] 10 mg RECTAL DAILY PRN PRN Reason: Constipation Discharge Medication List Gabapentin [Neurontin] 200 mg PO TID@0500,1300,2100 08/30/14 [History] Nystatin 100,000Unit/gm Cream [Mycostatin Cream] 1 applic TOPICAL BID PRN 08/30/14 [History] Polyethylene Glycol 3350 [Miralax] 17 gm PO DAILY@0900 08/31/14 [History] Memantine [Namenda] 10 mg PO BID@0900,1700 09/26/15 [History] Amino Acids/Protein Hydrolys [Pro-Stat Supplement] 30 ml PO DAILY@0900 01/01/17 [History] Lisinopril [Zestril] 2.5 mg PO DAILY@0500 01/01/17 [History] metFORMIN HCL [Glucophage Xr] 500 mg PO DAILY@0900 01/05/17 [History] Acetaminophen Tab [Tylenol] 650 mg PO TID@0900,1300,2100 02/16/19 [History] DULoxetine HCL [Cymbalta] 20 mg PO DAILY@0900 02/16/19 [History] Magnesium Hydroxide [Milk of Magnesia] 2,400 mg PO DAILY PRN 02/16/19 [History] Bisacodyl [Dulcolax] 10 mg RECTAL DAILY PRN 04/20/19 [History] Follow up Appointment(s)/Referral(s): [facility], [NON-STAFF] - As Needed David Andersen MD [Primary Care Provider] - 1-2 days
== END 2019-04-27 16:45 | DRG 580 ==
LOC: EC 10:26 → 3NMEDONC 14:07 → OBSVTOIN 04-22 14:27 → 3NMEDONC 04-25 11:31
PROVIDERS: ADMIT Hospitalist; ATTEND Hospitalist
PROC: 0KBN0ZZ Excision of Right Hip Muscle, Open Approach (ICD-10-PCS; principal; 2019-04-21)
DX: L89.314 Pressure ulcer of right buttock, stage 4 (principal); T83.518A Infection and inflammatory reaction due to other urinary catheter, initial encounter; Z16.12 Extended spectrum beta lactamase (ESBL) resistance; L89.324 Pressure ulcer of left buttock, stage 4; E11.51 Type 2 diabetes mellitus with diabetic peripheral angiopathy without gangrene; G35 Multiple sclerosis; E11.39 Type 2 diabetes mellitus with other diabetic ophthalmic complication; N31.2 Flaccid neuropathic bladder, not elsewhere classified; R15.9 Full incontinence of feces; F03.90 Unspecified dementia, unspecified severity, without behavioral disturbance, psychotic disturbance, mood disturbance, and anxiety; L08.9 Local infection of the skin and subcutaneous tissue, unspecified; B96.20 Unspecified Escherichia coli [E. coli] as the cause of diseases classified elsewhere; B95.62 Methicillin resistant Staphylococcus aureus infection as the cause of diseases classified elsewhere; B96.89 Other specified bacterial agents as the cause of diseases classified elsewhere; D64.9 Anemia, unspecified; H35.30 Unspecified macular degeneration; F32.9 Major depressive disorder, single episode, unspecified; I25.2 Old myocardial infarction; I34.1 Nonrheumatic mitral (valve) prolapse; K21.9 Gastro-esophageal reflux disease without esophagitis; N13.9 Obstructive and reflux uropathy, unspecified; Z74.01 Bed confinement status; Z79.84 Long term (current) use of oral hypoglycemic drugs; Z79.899 Other long term (current) drug therapy; Z99.3 Dependence on wheelchair; Z87.891 Personal history of nicotine dependence; Z87.442 Personal history of urinary calculi; Z87.440 Personal history of urinary (tract) infections; Z88.8 Allergy status to other drugs, medicaments and biological substances; Z91.012 Allergy to eggs; Z88.2 Allergy status to sulfonamides; Z91.018 Allergy to other foods; Z91.048 Other nonmedicinal substance allergy status; Z86.14 Personal history of Methicillin resistant Staphylococcus aureus infection; Z83.3 Family history of diabetes mellitus; Y84.6 Urinary catheterization as the cause of abnormal reaction of the patient, or of later complication, without mention of misadventure at the time of the procedure
CPT/HCPCS: 36415; 71046; 80048; 80053; 80202; 81001; 83605; 84484; 85025; 87040; 87070; 87075; 87077; 87086; 87186; 87205; 96361; 96365; 99284